=== PATIENT | female | born 1960 | race Caucasian/White ===

== ENCOUNTER 2016-05-14 14:47 | Emergency (ER) | payer OTHER ==
[2016-05-14 15:34] VITALS: TEMP 98.7; BMI 25.7
--- NOTE | 2016-05-14 17:43 | PDOC ---
History of Present Illness - General Chief Complaint: Syncope/Near Syncope Stated Complaint: SYNCOPE Time Seen by Provider: 05/14/16 15:46 History Source: Patient Exam Limitations: No Limitations - History of Present Illness Initial Comments: 05/14/16 17:13 56-year-old female presents to the emergency department with complaints of generalized fatigue, cough, decreased appetite, and weakness worsening over the past 2 days. Patient states went to her PCP who prescribed her an albuterol inhaler and azithromycin but did not start the medication since it was prescribed today. Patient states at the doctor's office, patient became weak and collapsed into her son's arms. As per son patient did have a period of LOC that lasted approximately 1 minute but was arousable with verbal stimuli therafter. She states history of ovarian cancer that was diagnosed in September and is followed by oncology on [facility]. Patient states last chemotherapy was 3 weeks ago and is due back in June. Patient states has not received blood transfusions or blood products since chemotherapy and denies history of anemia. Patient currently denies fever, chills, chest pain or shortness of breath, abdominal pain, dysuria or diarrhea. Timing/Duration: constant, getting worse Severity: moderate Associated Symptoms: reports: fever/chills, loss of appetite, malaise, syncope, weakness Past History - Past Medical History Allergies/Adverse Reactions: Allergies Allergy/AdvReac Type Severity Reaction Status Date / Time Penicillins Allergy Unknown Rash Verified 05/14/16 15:38 Home Medications: Ambulatory Orders Metformin HCl [Glucophage -] 500 mg PO DAILY 10/04/15 Atorvastatin Ca [Lipitor] 80 mg PO HS 05/14/16 Dexamethasone 4 mg PO ASDIR 05/14/16 Docusate Sodium 100 mg PO ASDIR 05/14/16 Lisinopril [Zestril] 2.5 mg PO DAILY 05/14/16 Meclizine HCl 25 mg PO ASDIR 05/14/16 Naproxen [Naprosyn -] 500 mg PO BID 05/14/16 Ondansetron [Zofran -] 8 mg PO ASDIR 05/14/16 Pravastatin Sodium [Pravachol (Nf)] 20 mg PO HS 05/14/16 Asthma: No Cancer: Yes (ovarian 09/2015 on chemo now) Diabetes: Yes (NIDDM) HTN: Yes - Immunization History Immunization Up to Date: Yes - Psycho/Social/Smoking Cessation Hx Anxiety: No Suicidal Ideation: No Smoking Status: No Smoking History: Never smoked Have you smoked in the past 12 months: No Number of Cigarettes Smoked Daily: 0 Information on smoking cessation initiated: No Hx Alcohol Use: No Drug/Substance Use Hx: No Substance Use Type: None Patient Lives Alone: No Lives with/in: spouse/SO Review of Systems - Review of Systems Able to Perform ROS?: Yes Constitutional: Yes: Weakness HEENTM: No: Symptoms Reported Respiratory: Yes: Cough, SOB with Exertion. No: Wheezing, Hemoptysis Cardiac (ROS): Yes: Syncope. No: Chest Pain, Edema ABD/GI: Yes: Poor Appetite, Poor Fluid Intake : No: Symptoms Reported Musculoskeletal: No: Symptoms Reported Integumentary: No: Symptoms Reported Neurological: Yes: Weakness Endocrine: No: Symptoms Reported Hematologic/Lymphatic: Yes: See HPI *Physical Exam - Vital Signs Last Vital Signs Temp Pulse Resp BP Pulse Ox 98.7 F 86 18 112/78 96 05/14/16 14:54 05/14/16 14:54 05/14/16 14:54 05/14/16 14:54 05/14/16 14:54 - Physical Exam General Appearance: Yes: Nourished, Appropriately Dressed. No: Apparent Distress HEENT: positive: EOMI, [place], TMs Normal, Pharynx Normal (moist), Pale Conjunctivae Neck: positive: Supple. negative: Lymphadenopathy (R), Lymphadenopathy (L) Respiratory/Chest: positive: Lungs Clear, Normal Breath Sounds. negative: Respiratory Distress, Accessory Muscle Use Cardiovascular: positive: Regular Rhythm, Regular Rate. negative: Murmur Gastrointestinal/Abdominal: positive: Soft. negative: Tenderness Extremity: positive: Normal Capillary Refill. negative: Pedal Edema Integumentary: positive: Warm, Pale, Moist Neurologic: positive: Motor Strength 5/5 (ambulatory) Heart Score/ECG Review - History History: Highly suspicious - ECG Intrepretation Rhythm: Regular Rhythm (Rate 85. Normal sinus rhythm. No acute findings) ED Treatment Course - LABORATORY CBC & Chemistry Diagram: 05/14/16 17:31 05/14/16 17:31 - RADIOLOGY Radiology Studies Ordered: Category Date Time Status CHEST X-RAY PORTABLE* [RAD] Stat Radiology 05/14/16 16:06 Completed Medical Decision Making - Medical Decision Making 05/14/16 17:10 Patient with history of apparent CVA in between treatments for chemotherapy presents with cough, malaise, shortness of breath on exertion, decreased by mouth intake, and syncope today while at the doctor's office. Patient states prescribed medication for treatment of bronchitis. Patient denies history of anemia and chest pain presently. Patient concerning for anemia, PE, pneumonia, and sepsis. Septic workup initiated including influenza swab and type and screen 05/14/16 18:32 Laboratory Tests 05/14/16 05/14/16 05/14/16 17:31 17:55 17:55 WBC 5.2 Hgb 12.0 Hct 35.6 Neutrophils % 56.3 D Monocytes % 10.7 H Eosinophils % 5.2 H INR 1.14 Ur Specific [place] 1.038 H Urine Urobilinogen Negative Ur Leukocyte Esterase Trace H Urine RBC 5 Urine WBC 4 influenza negative. chest x-ray negative. 05/14/16 18:59 Laboratory Tests 05/14/16 05/14/16 05/14/16 17:31 17:31 17:55 Sodium 140 Potassium 3.9 Chloride 105 Carbon Dioxide 26 Anion Gap 9 BUN 14 Creatinine 0.8 Random Glucose 101 Lactic Acid 1.436 Calcium 8.6 Total Bilirubin 0.6 AST 52 H D ALT 108 H D Creatine Kinase 57 Troponin I < 0.02 Albumin 3.5 Ur Specific [place] 1.038 H Ur Leukocyte Esterase Trace H Urine RBC 5 Ur Epithelial Cells Moderate Patient states feeling better after receiving the above. Case discussed with hospitalist who states patient does not request here for admission and may follow up with her PCP and start antibiotics and inhaler as prescribed. *DC/Admit/Observation/Transfer Diagnosis at time of Disposition: Cough Fatigue Qualifiers: Fatigue type: unspecified Qualified Code(s): R53.83 - Other fatigue Syncope Qualifiers: Syncope type: unspecified Qualified Code(s): R55 - Syncope and collapse - Discharge Dispostion Disposition: HOME Condition at time of disposition: Improved - Referrals Referrals: Eleazar Ken [Primary Care Provider] - - Patient Instructions Printed Discharge Instructions: DI for Syncope in Adults (Fainting) Additional Instructions: I recommend completing your antibiotics and using inhaler as needed for the above symptoms. Eat small frequent meals and drink plenty of fluids. Please follow-up with your PCP later this week or return to ED if her symptoms worsen.
[2016-05-14 17:46] LABS: BASOPHIL 0.7 % (0-2.0); EOSINOPHIL 5.2 % (0-4.5); MCH 30.2 pg (25.7-33.7); MCHC 33.6 g/dl (32.0-36.0); MEAN CELL VOLUME 89.7 fl (80-96); MEAN PLT VOLUME 8.2 fl (7.5-11.1); NEUTROPHILS 56.3 % (42.8-82.8); PLATELET COUNT 268 K/MM3 (134-434); RDW 14.6 % (11.6-15.6); WHITE BLOOD COUNT 5.2 K/mm3 (4.0-10.0)
[2016-05-14 18:06] LABS: URINE APPEARANCE CLEAR; URINE BLOOD NEGATIVE (NEGATIVE); URINE COLOR YELLOW; URINE GLUCOSE (UA) NEGATIVE (NEGATIVE); URINE KETONE NEGATIVE (NEGATIVE); URINE NITRITE NEGATIVE (NEGATIVE); URINE PROTEIN NEGATIVE (NEGATIVE); URINE UROBILINOGEN NEGATIVE E.U./dl (0.2-1.0)
[2016-05-14 18:16] LABS: URINE LEUK ESTERASE TRACE (NEGATIVE)
[2016-05-14 18:17] LABS: URINE HYALINE CAST 3 /lpf; URINE MUCUS RARE; URINE RBC 5 /hpf (0-3); URINE WBC 4 /hpf (3-5)
[2016-05-14 18:24] LABS: INR 1.14 (0.82-1.09); PROTHROMBIN TIME (PATIENT) 12.6 SEC (9.98-11.88)
[2016-05-14 18:31] LABS: ALBUMIN 3.5 g/dl (3.4-5.0); ANION GAP 9 (8-16); CALCIUM 8.6 mg/dL (8.5-10.1); CO2 26 mmol/L (21-32); CREATININE 0.8 mg/dL (0.55-1.02); GLUCOSE,RANDOM 101 mg/dL (74-106); SGOT/AST 52 U/L (15-37); SGPT/ALT 108 U/L (12-78)
[2016-05-14 18:36] LABS: ALK PHOS 82 U/L (45-117); BILIRUBIN,TOTAL 0.6 mg/dL (0.2-1.0); TOT PROT 6.8 g/dl (6.4-8.2); TROPONIN I < 0.02 ng/ml (0.00-0.05)
[2016-05-14 19:33] VITALS: BP 103/76; PULSE 97
--- NOTE | 2016-05-15 10:54 | PDOC ---
*Physical Exam - Vital Signs Last Vital Signs Temp Pulse Resp BP Pulse Ox 98.7 F 97 H 19 103/76 97 05/14/16 14:54 05/14/16 18:54 05/14/16 18:54 05/14/16 18:54 05/14/16 18:54 - Physical Exam Comments: 05/15/16 10:52 MIDLEVEL NOTE Pt seen by Midlevel Provider under my direct supervision. Pt interviewed and examined. Ancillary studies reviewed. I agree with plan as outlined by Midlevel Provider. Laboratory Results - last 24 hr 05/14/16 05/14/16 05/14/16 17:31 17:31 17:31 WBC 5.2 RBC 3.96 Hgb 12.0 Hct 35.6 MCV 89.7 MCHC 33.6 RDW 14.6 Plt Count 268 D MPV 8.2 D Neutrophils % 56.3 D Lymphocytes % 27.1 D Monocytes % 10.7 H Eosinophils % 5.2 H Basophils % 0.7 INR Sodium 140 Potassium 3.9 Chloride 105 Carbon Dioxide 26 Anion Gap 9 BUN 14 Creatinine 0.8 Creat Clearance w eGFR > 60 Random Glucose 101 Lactic Acid Calcium 8.6 Total Bilirubin 0.6 AST 52 H D ALT 108 H D Alkaline Phosphatase 82 D Creatine Kinase 57 Troponin I < 0.02 Total Protein 6.8 Albumin 3.5 Urine Color Urine Appearance Urine pH Ur Specific [place] Urine Protein Urine Glucose (UA) Urine Ketones Urine Blood Urine Nitrite Urine Bilirubin Urine Urobilinogen Ur Leukocyte Esterase Urine RBC Urine WBC Ur Epithelial Cells Hyaline Casts Urine Mucus Blood Type A POSITIVE Antibody Screen Negative 05/14/16 05/14/16 05/14/16 17:31 17:55 17:55 WBC RBC Hgb Hct MCV MCHC RDW Plt Count MPV Neutrophils % Lymphocytes % Monocytes % Eosinophils % Basophils % INR 1.14 Sodium Potassium Chloride Carbon Dioxide Anion Gap BUN Creatinine Creat Clearance w eGFR Random Glucose Lactic Acid 1.436 Calcium Total Bilirubin AST ALT Alkaline Phosphatase Creatine Kinase Troponin I Total Protein Albumin Urine Color Yellow Urine Appearance Clear Urine pH 6.0 Ur Specific [place] 1.038 H Urine Protein Negative Urine Glucose (UA) Negative Urine Ketones Negative Urine Blood Negative Urine Nitrite Negative Urine Bilirubin 4.0 Urine Urobilinogen Negative Ur Leukocyte Esterase Trace H Urine RBC 5 Urine WBC 4 Ur Epithelial Cells Moderate Hyaline Casts 3 Urine Mucus Rare Blood Type Antibody Screen Chest x-ray-there is a new right port with its tip in the SVC. There is no acute chest pathology, no infiltrate, no pneumothorax ED Treatment Course - LABORATORY CBC & Chemistry Diagram: 05/14/16 17:31 05/14/16 17:31 - ADDITIONAL ORDERS Additional order review: 05/14/16 17:38 Influenza Types A,B Antigen (JEFERSON) - Final Nasopharyngeal Swab - Final 05/14/16 17:31 RBC 3.96 MCV 89.7 MCHC 33.6 RDW 14.6 MPV 8.2 D Neutrophils % 56.3 D Lymphocytes % 27.1 D Monocytes % 10.7 H Eosinophils % 5.2 H Basophils % 0.7 *DC/Admit/Observation/Transfer Diagnosis at time of Disposition: Cough Fatigue Qualifiers: Fatigue type: unspecified Qualified Code(s): R53.83 - Other fatigue Syncope Qualifiers: Syncope type: unspecified Qualified Code(s): R55 - Syncope and collapse - Discharge Dispostion Disposition: HOME Condition at time of disposition: Improved - Referrals Referrals: Eleazar Ken [Primary Care Provider] - - Patient Instructions Printed Discharge Instructions: DI for Syncope in Adults (Fainting) Additional Instructions: I recommend completing your antibiotics and using inhaler as needed for the above symptoms. Eat small frequent meals and drink plenty of fluids. Please follow-up with your PCP later this week or return to ED if her symptoms worsen. - Post Discharge Activity
--- NOTE | 2016-05-15 15:31 | EKG ---
Test Reason : Blood Pressure : / mmHG Vent. Rate : 085 BPM Atrial Rate : 085 BPM P-R Int : 132 ms QRS Dur : 084 ms QT Int : 362 ms P-R-T Axes : 060 036 033 degrees QTc Int : 430 ms NORMAL SINUS RHYTHM NORMAL ECG WHEN COMPARED WITH ECG OF 04-OCT-2015 14:57, NO SIGNIFICANT CHANGE WAS FOUND Confirmed by ANDRE KOWALSKI MD ([id number]) on 05/15/2016 3:31:26 PM Referred By: Confirmed By:ANDRE KOWALSKI MD
== END 2016-05-14 19:15 | disposition home or self-care (01) ==
LOC: JER 14:47
DX: R05 Cough (principal); R53.83 Other fatigue; R55 Syncope and collapse; I10 Essential (primary) hypertension; E11.9 Type 2 diabetes mellitus without complications; Z85.43 Personal history of malignant neoplasm of ovary
CPT/HCPCS: 36415; 71010-TC; 80053; 81003; 81015; 82550; 83605; 84484; 85025; 85610; 86850; 86900; 86901; 87040; 87086; 87804; 93005; 93010; 99282-25

== ENCOUNTER 2016-09-13 14:31 | Inpatient (IN) | payer OTHER ==
[2016-09-13 14:47] VITALS: BMI 28.3
--- NOTE | 2016-09-13 15:47 | PDOC ---
History of Present Illness - General History Source: Patient Exam Limitations: No Limitations - History of Present Illness Initial Comments: 09/13/16 15:51 The patient is a 56-year-old woman, accompanied by her son, with a significant past medical history of ovarian cancer (status post chemotherapy; last chemotherapy session 03/2016), hypertension and non-insulin dependent diabetes mellitus who presents to the emergency department via walk-in for further evaluation of shortness of breath for the past 2 days. Patient states that her symptoms started approximately 2 days ago with a dry intermittent cough and a fever of 101.0 and chills at home. In the course of 2 days, patient's symptoms have progressively worsen as she started to feel short of breath and reports associated symptoms of pleuritic sharp chest pains with a rated 8/10 in severity that do not allow her to eat or drink and she experiences sever pain Son, at bedside, reports that he was recently sick, approximately 2 week ago with the common cold. No associated symptoms of lightheadedness, dizziness, palpitations, leg pain.swelling, neck pain, visual changes, headaches, ear pain , rhinorrhea, nasal congestion, sore throat, abdominal pain, nausea, vomiting, diarrhea. No urinary complaints. Patient also reports noting a pruritic rash that is localized to her right forearm. No new soaps, detergents, new foods. No recent travel. Allergies: Penicillin Past Surgical History: Port insertion for cancer Social History: Never smoked. No EtOH and recreational drug use Primary Care Physician: Dr. Luci Ken <Dionne Hicks - Last Filed: 09/13/16 16:21> - General History Source: Patient Exam Limitations: No Limitations <Griselda Goodwin - Last Filed: 09/15/16 01:07> - General Chief Complaint: Shortness of Breath Stated Complaint: SOB, CHEST PAIN Time Seen by Provider: 09/13/16 15:23 Past History <Dionne Hicks - Last Filed: 09/13/16 16:21> - Past Medical History Asthma: No Cancer: Yes (ovarian 09/2015 on chemo now) Diabetes: Yes (NIDDM) HTN: Yes - Immunization History Immunization Up to Date: Yes - Psycho/Social/Smoking Cessation Hx Anxiety: No Suicidal Ideation: No Smoking Status: No Smoking History: Never smoked Have you smoked in the past 12 months: No Number of Cigarettes Smoked Daily: 0 Information on smoking cessation initiated: No Hx Alcohol Use: No Drug/Substance Use Hx: No Substance Use Type: None <Griselda Goodwin - Last Filed: 09/15/16 01:07> - Past Medical History Allergies/Adverse Reactions: Allergies Allergy/AdvReac Type Severity Reaction Status Date / Time Penicillins Allergy Unknown Rash Verified 09/13/16 14:38 Home Medications: Ambulatory Orders Metformin HCl [Glucophage -] 500 mg PO DAILY 10/04/15 Lisinopril [Zestril] 5 mg PO DAILY 05/14/16 Pravastatin Sodium [Pravachol (Nf)] 20 mg PO HS 05/14/16 Aspirin [Children's Aspirin] 81 mg PO DAILY 09/14/16 Review of Systems - Review of Systems Able to Perform ROS?: Yes Comments:: 09/13/16 15:51 GENERAL/CONSTITUTIONAL: Yes: Generalized weakness. Loss of Appetite. No: fever, chills. HEAD, EYES, EARS, NOSE AND THROAT: No: change in vision, ear pain, discharge, sore throat, throat swelling. CARDIOVASCULAR: Yes: Pleuritic chest pain. No: lightheadedness, palpitations, syncope RESPIRATORY: Yes: Cough. Shortness of Breath. No: wheezing, hemoptysis, stridor. GASTROINTESTINAL: No: nausea, vomiting, abdominal cramping, diarrhea, rectal bleeding, constipation. GENITOURINARY: No: dysuria, hematuria, frequency, urgency, flank pain. MUSCULOSKELETAL: No: back pain, neck pain, joint pain, muscle swelling or pain SKIN AND BREASTS: Yes: Rash. No: lesions, pallor, easy bruising. NEUROLOGIC: No: headache, vertigo, paresthesias, weakness ENDOCRINE: No: unexplained weight gain or loss HEMATOLOGIC/LYMPHATIC: No: anemia, easy bleeding, swelling nodes <Dionne Hicks - Last Filed: 09/13/16 16:21> *Physical Exam - Vital Signs Last Vital Signs Temp Pulse Resp BP Pulse Ox 97.3 F L 80 18 120/74 100 09/13/16 14:39 09/13/16 14:39 09/13/16 14:39 09/13/16 14:39 09/13/16 14:39 - Physical Exam Comments: 09/13/16 15:51 GENERAL: Awake. Alert and Oriented. Appears weak. No acute distress. HEAD: Normal with no signs of trauma. EYES: PERRLA, EOMI, sclera anicteric, conjunctiva clear. ENT: Ears normal, nares patent, oropharynx clear without exudates. Moist mucous membranes. NECK: Normal range of motion, supple without lymphadenopathy, JVD, or masses. LUNGS: Coarse breath sounds throughout both lung serrano. No wheezes, and no crackles. HEART:Regular rate and rhythm, normal S1 and S2 without murmur, rub or gallop. ABDOMEN: Soft, nontender, normoactive bowel sounds. No guarding, no rebound. EXTREMITIES: Normal range of motion, no edema. No clubbing or cyanosis. No erythema, or tenderness. NEUROLOGICAL: Cranial nerves II through XII grossly intact. Normal speech. No focal neurological deficits. MUSCULOSKELETAL: Back non-tender to palpation, no CVA tenderness SKIN: Warm, Dry, normal turgor, no rashes or lesions noted. <Dionne Hicks - Last Filed: 09/13/16 16:21> - Vital Signs Last Vital Signs Temp Pulse Resp BP Pulse Ox 97.3 F L 80 18 120/74 100 09/13/16 14:39 09/13/16 14:39 09/13/16 14:39 09/13/16 14:39 09/13/16 14:39 <Griselda Goodwin - Last Filed: 09/15/16 01:07> ED Treatment Course - LABORATORY CBC & Chemistry Diagram: 09/13/16 15:38 09/13/16 15:38 <Dionne Hicks - Last Filed: 09/13/16 16:21> - LABORATORY CBC & Chemistry Diagram: 09/14/16 21:00 09/14/16 21:00 - RADIOLOGY Radiology Studies Ordered: Category Date Time Status CHEST X-RAY PORTABLE* [RAD] Stat Radiology 09/13/16 15:28 Ordered <Griselda Goodwin - Last Filed: 09/15/16 01:07> Medical Decision Making - Medical Decision Making 09/13/16 15:47 A portion of this note was documented by scribe services under my direction. I have reviewed the details of the note, within reason, and agree with the documentation with the following case summary and management plan written by me. Nursing documentation reviewed and incorporated into medical decision making 09/13/16 16:24 56 yo F h/o DM, HTN presenting to the ER with a complaint of chest pain Pt states that since Friday (2 days ago) she noted that when she had her coffee, it caused chest pain Since then she has been unable to tolerate eating or drinking Two days ago, she had a fever She has had cough (productive) No travel Son = sick contact Prior endoscopy, negative per patient (2 years ago, no h/o h. pylori, no ulcer) DD: Pneumonia, Bronchitis, Gastritis, PE, pleural effusion, pneumothorax Will do labs Will do EKg Will do CXR Will actually do CTA (if creatinine permits) as pt has had Ovarian cancer Pt signed out to Dr Warren Pending labs and imaging <Griselda Goodwin - Last Filed: 09/15/16 01:07> *DC/Admit/Observation/Transfer - Attestations Scribe Attestion: 09/13/16 15:51 Documentation prepared by Dionne Hicks, acting as biomedical instrument technician for Griselda Goodwin MD. <Dionne Hicks - Last Filed: 09/13/16 16:21> <Griselda Goodwin - Last Filed: 09/15/16 01:07> Diagnosis at time of Disposition: Costochondritis, Chest pain - Discharge Dispostion Disposition: HOME Condition at time of disposition: Stable - Referrals
[2016-09-13 16:30] LABS: INR 1.04 (0.82-1.09); PROTHROMBIN TIME (PATIENT) 11.5 SEC (9.98-11.88)
[2016-09-13 16:31] LABS: MCH 28.5 pg (25.7-33.7); MEAN PLT VOLUME 8.7 fl (7.5-11.1)
[2016-09-13 16:38] LABS: BASOPHIL 0.8 % (0-2.0); EOSINOPHIL 11.4 % (0-4.5); MCHC 33.1 g/dl (32.0-36.0); MEAN CELL VOLUME 86.4 fl (80-96); NEUTROPHILS 43.2 % (42.8-82.8); PLATELET COUNT 324 K/MM3 (134-434); RDW 14.7 % (11.6-15.6); WHITE BLOOD COUNT 5.8 K/mm3 (4.0-10.0)
[2016-09-13 16:40] LABS: ANION GAP 10 (8-16); BILIRUBIN,TOTAL 0.6 mg/dL (0.2-1.0); CALCIUM 9.5 mg/dL (8.5-10.1); CO2 26 mmol/L (21-32); CREATININE 0.7 mg/dL (0.55-1.02); GLUCOSE,RANDOM 90 mg/dL (74-106); MAGNESIUM 1.8 mg/dL (1.8-2.4); SGOT/AST 22 U/L (15-37); SGPT/ALT 28 U/L (12-78); TOT PROT 7.1 g/dl (6.4-8.2)
[2016-09-13 16:43] LABS: ALK PHOS 61 U/L (45-117); TROPONIN I < 0.02 ng/ml (0.00-0.05)
--- NOTE | 2016-09-13 18:51 | PDOC ---
*Physical Exam - Vital Signs Last Vital Signs Temp Pulse Resp BP Pulse Ox 97.3 F L 80 18 120/74 100 09/13/16 14:39 09/13/16 14:39 09/13/16 14:39 09/13/16 14:39 09/13/16 14:39 ED Treatment Course - LABORATORY CBC & Chemistry Diagram: 09/13/16 15:38 09/13/16 15:38 - ADDITIONAL ORDERS Additional order review: Laboratory Results 09/13/16 09/13/16 09/13/16 15:38 15:38 15:38 INR 1.04 Sodium 140 Potassium 4.0 Chloride 104 Carbon Dioxide 26 Anion Gap 10 BUN 16 Creatinine 0.7 Creat Clearance w eGFR > 60 Random Glucose 90 Calcium 9.5 Magnesium 1.8 Total Bilirubin 0.6 AST 22 D ALT 28 D Alkaline Phosphatase 61 D Creatine Kinase 129 Troponin I < 0.02 B-Natriuretic Peptide 30.82 Total Protein 7.1 Albumin 4.0 Total Amylase 41 Lipase 110 09/13/16 15:38 RBC 4.11 MCV 86.4 MCHC 33.1 RDW 14.7 MPV 8.7 Neutrophils % 43.2 D Lymphocytes % 35.9 D Monocytes % 8.7 Eosinophils % 11.4 H D Basophils % 0.8 Medical Decision Making - Medical Decision Making 09/13/16 18:42 Sign-out received from outgoing Emergency Physician Dr. Goodwin Pt interviewed and examined Ancillary studies reviewed Case discussed in detail with oncoming Emergency Physician including history, physical exam and ancillary studies. CAT scan demonstrates no acute pathology or pulmonary embolism. CBC, BMP 09/13/16 15:38 09/13/16 15:38 CMP Sodium 140 mmol/L (136-145) 09/13/16 15:38 Potassium 4.0 mmol/L (3.5-5.1) 09/13/16 15:38 Chloride 104 mmol/L (98-107) 09/13/16 15:38 Carbon Dioxide 26 mmol/L (21-32) 09/13/16 15:38 Anion Gap 10 (8-16) 09/13/16 15:38 BUN 16 mg/dL (7-18) 09/13/16 15:38 Creatinine 0.7 mg/dL (0.55-1.02) 09/13/16 15:38 Creat Clearance w eGFR > 60 (>60) 09/13/16 15:38 Random Glucose 90 mg/dL (74-106) 09/13/16 15:38 Calcium 9.5 mg/dL (8.5-10.1) 09/13/16 15:38 Magnesium 1.8 mg/dL (1.8-2.4) 09/13/16 15:38 Total Bilirubin 0.6 mg/dL (0.2-1.0) 09/13/16 15:38 AST 22 U/L (15-37) D 09/13/16 15:38 ALT 28 U/L (12-78) D 09/13/16 15:38 Alkaline Phosphatase 61 U/L (45-117) D 09/13/16 15:38 Creatine Kinase 129 IU/L (26-192) 09/13/16 15:38 Troponin I < 0.02 ng/ml (0.00-0.05) 09/13/16 15:38 B-Natriuretic Peptide 30.82 pg/ml (5-125) 09/13/16 15:38 Total Protein 7.1 g/dl (6.4-8.2) 09/13/16 15:38 Albumin 4.0 g/dl (3.4-5.0) 09/13/16 15:38 Total Amylase 41 U/L (25-115) 09/13/16 15:38 Lipase 110 U/L (73-393) 09/13/16 15:38 Labs reviewed. I suspect the patient likely has costochondritis and viral syndrome. Patient reports 3 days of coughing and body aches particularly with coughing. Blood work done shows no acute finding. There is no evidence of pneumonia. Patient is not on chemotherapy or venous presents at this time. Given these findings, we will give supportive medications. I instructed the patient that her symptoms are persistent for additional 4 days, given history diabetes, patient can start taking azithromycin I will prescribe. Patient verbalizes understand agrees with plan. 09/13/16 21:48 I had attempted to discharge Ms. Staton. However, pt is now complaining of worsening pain and crying despite naproxen and tylenol. Will give morphine. however, pt unable to tolerate PO secondary to pain. Patient is very uncomfortable and anxious about going home. Will admit for obs. 09/13/16 22:[address] Graff. She accepts to med/surg observation. Case discussed in detail with admitting physician including history, physical exam and ancillary studies. Admitting physician has assumed care for the patient, will follow all pending diagnostics and will complete the evaluation and treatment. *DC/Admit/Observation/Transfer Diagnosis at time of Disposition: Costochondritis Chest pain Qualifiers: Chest pain type: unspecified Qualified Code(s): R07.9 - Chest pain, unspecified - Discharge Dispostion Condition at time of disposition: Stable Admit: Yes - Prescriptions Prescriptions: Azithromycin 250 mg PO DAILY #6 tablet Loratadine [Claritin] 10 mg PO DAILY PRN #7 tablet PRN Reason: Allergies Naproxen [Naprosyn -] 500 mg PO BID PRN #20 tablet PRN Reason: Pain Albuterol Sulfate Inhaler - [Ventolin HFA Inhaler -] 1 - 2 inh PO Q4H PRN #1 inhaler PRN Reason: Cough - Referrals Referrals: Eleazar Ken [Primary Care Provider] - - Patient Instructions Printed Discharge Instructions: DI for Costochondritis, DI for Viral Syndrome Additional Instructions: Please take 2 puffs of albuterol every 4 hours for cough/wheezing. Take 10 mg claritin daily as needed for wheezes. By day 7, if your symptoms are still persistent, please start the azithromycin ( antibiotic) Take 500 mg naproxen every 12 hours as needed for pain/fever. It may take several days before your symptoms improve. - Post Discharge Activity
[2016-09-13] MEDS ORDERED: LORATADINE 10 MG TABLET PO ONE (18:52)
[2016-09-13] MEDS ORDERED: KETOROLAC TROMETHAMINE 30 MG/1 ML VIAL IVPUSH ONE (18:52)
[2016-09-13] MEDS ORDERED: LORATADINE 10 MG TABLET ONE (19:14)
[2016-09-13] MEDS ORDERED: KETOROLAC TROMETHAMINE 30 MG/1 ML VIAL ONE (19:14)
[2016-09-13] MEDS ORDERED: ACETAMINOPHEN 1000 MG/100 ML VIAL (NON FORMULARY) IVPB ONE (19:31)
[2016-09-13] MEDS ORDERED: ACETAMINOPHEN INJECTION 100 ML IVPB ONE (19:59)
[2016-09-13] MEDS ORDERED: morphine CARPU-JECT 4 MG/1 ML DISP.SYRIN IVPUSH ONE (21:48)
[2016-09-13] MEDS ORDERED: morphine CARPU-JECT 4 MG/1 ML DISP.SYRIN ONE (22:04)
[2016-09-13] MEDS ORDERED: ONDANSETRON 4 MG/2 ML VIAL IVPUSH PRN (22:20)
[2016-09-13] MEDS ORDERED: PANTOPRAZOLE SODIUM 100 ML IVPB ONE ×2 (22:20→22:45)
[2016-09-13] MEDS ORDERED: SODIUM CHLORIDE 1,000 ML IV STA (22:45)
[2016-09-13] MEDS ORDERED: ONDANSETRON 4 MG/2 ML VIAL ONE (22:45)
[2016-09-13] MEDS: SODIUM CHLORIDE 1,000 ML IV SCH (23:15)
--- NOTE | 2016-09-14 00:15 | HP ---
CHIEF COMPLAINT: "My chest and back hurt when I swallow." PCP: Eleazar Ken HISTORY OF PRESENT ILLNESS: This is a 56-year-old woman, accompanied by her son , with a significant past medical history of ovarian cancer (s/p chemotherapy; last 03/2016), HTN and NIDDM who presents to the emergency department right sided chest and upper back pain for the past 2 days. Patient states that her symptoms started approximately 2 days ago with a dry intermittent cough and chills at home. In the course of 2 days, patient's symptoms have progressively worsen as she started to feel short of breath and reports associated symptoms of pleuritic sharp chest pain 8/10 in severity that do not allow her to eat or drink and she experiences severe pain. Son, at bedside, reports that he was recently sick, approximately 2 week ago with the common cold. No associated symptoms of lightheadedness, dizziness, palpitations, leg pain.swelling, neck pain, visual changes, headaches, ear pain, rhinorrhea, nasal congestion, sore throat, abdominal pain, nausea, vomiting, diarrhea. No urinary complaints. ER course was notable for: (1) eosinophilia 11.4% (2) negative troponin (3) negative CTA Recent Travel: denies PAST MEDICAL HISTORY: NIDDM, HTN, occiptal aneurysm, ovarian CA with last chemo 03/2016 PAST SURGICAL HISTORY: CARMEL 2004, implanted port R chest Social History: Smoking: denies Alcohol: denies Drugs: denies Family History: unknown Allergies Penicillins Allergy (Unknown, Verified 09/13/16 14:38) Rash HOME MEDICATIONS: Home Medications 3 Medication Instructions Recorded Metformin HCl [Glucophage -] 500 mg PO DAILY 10/04/15 Lisinopril [Zestril] 5 mg PO DAILY 05/14/16 Pravastatin Sodium [Pravachol (Nf)] 20 mg PO HS 05/14/16 Aspirin [Children's Aspirin] 81 mg PO DAILY 09/14/16 REVIEW OF SYSTEMS CONSTITUTIONAL: Absent: fever, chills, diaphoresis, generalized weakness, malaise, loss of appetite, weight change HEENT: odynophagia Absent: rhinorrhea, nasal congestion, throat pain, throat swelling, difficulty swallowing, mouth swelling, ear pain, eye pain, visual changes CARDIOVASCULAR: right sided chest pain Absent: syncope, palpitations, irregular heart rate, lightheadedness, peripheral edema RESPIRATORY: dry cough, shortness of breath Absent: dyspnea with exertion, orthopnea, wheezing, stridor, hemoptysis GASTROINTESTINAL: Absent: abdominal pain, abdominal distension, nausea, vomiting, diarrhea, constipation, melena, hematochezia GENITOURINARY: Absent: dysuria, frequency, urgency, hesitancy, hematuria, flank pain, genital pain MUSCULOSKELETAL: Absent: myalgia, arthralgia, joint swelling, back pain, neck pain SKIN: Absent: rash, itching, pallor HEMATOLOGIC/IMMUNOLOGIC: Absent: easy bleeding, easy bruising, lymphadenopathy, frequent infections ENDOCRINE: Absent: unexplained weight gain, unexplained weight loss, heat intolerance, cold intolerance NEUROLOGIC: Absent: headache, focal weakness or paresthesias, dizziness, unsteady gait, seizure, mental status changes, bladder or bowel incontinence PSYCHIATRIC: Absent: anxiety, depression, suicidal or homicidal ideation, hallucinations. PHYSICAL EXAMINATION Vital Signs - 24 hr 3 09/13/16 14:39 Temperature 97.3 F L Pulse Rate 80 Respiratory 18 Rate Blood Pressure 120/74 O2 Sat by Pulse 100 Oximetry (%) GENERAL: Awake, alert, and fully oriented, in no acute distress. HEAD: Normal with no signs of trauma. EYES: Pupils equal, round and reactive to light, extraocular movements intact, sclera anicteric, conjunctiva clear. No lid lag. EARS, NOSE, THROAT: Ears normal, nares patent, oropharynx clear without exudates. Moist mucous membranes. NECK: Normal range of motion, supple without lymphadenopathy, JVD, or masses. LUNGS: Breath sounds equal, clear to auscultation bilaterally. No wheezes, and no crackles. No accessory muscle use. HEART: Regular rate and rhythm, normal S1 and S2 without murmur, rub or gallop. ABDOMEN: Soft, nontender, not distended, normoactive bowel sounds, no guarding, no rebound, no masses. No hepatomegaly or splenomegaly. MUSCULOSKELETAL: Normal range of motion at all joints. No bony deformities or tenderness. No CVA tenderness. Tenderness to right ACW. UPPER EXTREMITIES: 2+ pulses, warm, well-perfused. No cyanosis. No clubbing. No peripheral edema. Localized pink papular rash to dorsum of right hand extending into forearm. LOWER EXTREMITIES: 2+ pulses, warm, well-perfused. No calf tenderness. No peripheral edema. NEUROLOGICAL: Cranial nerves II-XII intact. Normal speech. Normal gait. PSYCHIATRIC: Cooperative. Good eye contact. Appropriate mood and affect. SKIN: Warm, dry, normal turgor, no rashes or lesions noted, normal capillary refill. Localized pruritic pink papular rash to dorsum of right hand extending into forearm. Laboratory Results - last 24 hr 3 09/13/16 09/13/16 09/13/16 15:38 15:38 15:38 WBC 5.8 RBC 4.11 Hgb 11.7 Hct 35.5 MCV 86.4 MCHC 33.1 RDW 14.7 Plt Count 324 D MPV 8.7 Neutrophils % 43.2 D Lymphocytes % 35.9 D Monocytes % 8.7 Eosinophils % 11.4 H D Basophils % 0.8 INR 1.04 Sodium 140 Potassium 4.0 Chloride 104 Carbon Dioxide 26 Anion Gap 10 BUN 16 Creatinine 0.7 Creat Clearance w eGFR > 60 Random Glucose 90 Calcium 9.5 Magnesium 1.8 Total Bilirubin 0.6 AST 22 D ALT 28 D Alkaline Phosphatase 61 D Creatine Kinase 129 Troponin I < 0.02 B-Natriuretic Peptide Total Protein 7.1 Albumin 4.0 Total Amylase Lipase 3 09/13/16 15:38 WBC RBC Hgb Hct MCV MCHC RDW Plt Count MPV Neutrophils % Lymphocytes % Monocytes % Eosinophils % Basophils % INR Sodium Potassium Chloride Carbon Dioxide Anion Gap BUN Creatinine Creat Clearance w eGFR Random Glucose Calcium Magnesium Total Bilirubin AST ALT Alkaline Phosphatase Creatine Kinase Troponin I B-Natriuretic Peptide 30.82 Total Protein Albumin Total Amylase 41 Lipase 110 ASSESSMENT/PLAN: A: This is a 56 yo woman with history ovarian CA, HTN, CARMEL and NIDDM who presents with right sided chest pain, dry cough and SOB. While in the ED, she was medicated with morphine and became hypotensive (75/46) and diaphoretic. 1 liter NS w/o given with return to baseline. P: Chest pain -serial troponin -repeat EKG -ASA eosinophilia -likely from ovarian neoplasm dermatitis -benadryl PRN HTN -lisinopril HLD -pravachol DM -FS BID -metformin F/E/N -1 liter NS bolus PPX -OOB -Maalox Dispo: This patient needs observation for her acute medical problem. Code Status: FULL CODE Visit type - Emergency Visit Emergency Visit: Yes ED Registration Date: 05/27/17 Care time: The patient presented to the Emergency Department on the above date and was hospitalized for further evaluation of their emergent condition. - New Patient This patient is new to me today: Yes Date on this admission: 09/14/16 - Critical Care Critical Care patient: No
[2016-09-14] MEDS ORDERED: MAG HYDROX/AL HYDROX/SIMETH 30 ML UNIT-DOSE CUP PO ONE (04:01)
[2016-09-14] MEDS ORDERED: diphenhydrAMINE HCL 12.5 MG/5 ML UNIT-DOSE CUPS PO ONE (04:01)
[2016-09-14] MEDS ORDERED: MAG HYDROX/AL HYDROX/SIMETH 30 ML UNIT-DOSE CUP ONE (05:12)
[2016-09-14] MEDS ORDERED: diphenhydrAMINE HCL 12.5 MG/5 ML BULK BOTTLE ONE (05:12)
[2016-09-14] MEDS ORDERED: metFORMIN HCL 500 MG TABLET (FP) PO SCH (07:00)
[2016-09-14] MEDS: SODIUM CHLORIDE 1,000 ML IV SCH ×3 (09:07→22:34)
[2016-09-14] MEDS ORDERED: diphenhydrAMINE HCL 25 MG CAPSULE (FP) PO ONE (09:16)
[2016-09-14 09:34] LABS: EOSINOPHIL 7.6 % (0-4.5); MCH 29.1 pg (25.7-33.7); MCHC 33.4 g/dl (32.0-36.0); MEAN CELL VOLUME 87.1 fl (80-96); MEAN PLT VOLUME 8.9 fl (7.5-11.1); NEUTROPHILS 43.9 % (42.8-82.8); PLATELET COUNT 309 K/MM3 (134-434); RDW 14.6 % (11.6-15.6); WHITE BLOOD COUNT 5.3 K/mm3 (4.0-10.0)
[2016-09-14] MEDS ORDERED: LISINOPRIL 5 MG TABLET (FP) PO SCH (10:00)
[2016-09-14] MEDS ORDERED: ASPIRIN 81 MG CHEWABLE TABLETS PO SCH (10:00)
[2016-09-14] MEDS ORDERED: MAG HYDROX/AL HYDROX/SIMETH 30 ML UNIT-DOSE CUP PO PRN ×2 (10:00→23:43)
[2016-09-14 10:40] LABS: ANION GAP 10 (8-16); CO2 24 mmol/L (21-32); COCKROFT - GAULT 83.4445; CREATININE 0.9 mg/dL (0.55-1.02); GLUCOSE,RANDOM 85 mg/dL (74-106); TROPONIN I < 0.02 ng/ml (0.00-0.05)
[2016-09-14] MEDS ORDERED: IBUPROFEN 600 MG TABLET (FP) PO PRN (12:43)
[2016-09-14] MEDS ORDERED: IBUPROFEN 600 MG TABLET (FP) PO ONE (13:30)
--- NOTE | 2016-09-14 16:21 | PN ---
Physical Exam: SUBJECTIVE: Patient seen and examined OBJECTIVE: Vital Signs Period Temp Pulse Resp BP Sys/Leach Pulse Ox Last 24 Hr 97.8 F-97.8 F 73-88 15-19 91-107/53-64 95-97 GENERAL: The patient is awake, alert, and fully oriented, in no acute distress. HEAD: Normal with no signs of trauma. EYES: PERRL, extraocular movements intact, sclera anicteric, conjunctiva clear. No ptosis. ENT: Ears normal, nares patent, oropharynx clear without exudates, moist mucous membranes. NECK: Trachea midline, full range of motion, supple. LUNGS: Breath sounds equal, clear to auscultation bilaterally, no wheezes, no crackles, no accessory muscle use. HEART: Regular rate and rhythm, S1, S2 without murmur, rub or gallop. ABDOMEN: Soft, nontender, nondistended, normoactive bowel sounds, no guarding, no rebound, no hepatosplenomegaly, no masses. EXTREMITIES: 2+ pulses, warm, well-perfused, no edema. NEUROLOGICAL: Cranial nerves II through XII grossly intact. Normal speech, gait not observed. PSYCH: Normal mood, normal affect. SKIN: Warm, dry, normal turgor, no rashes or lesions noted Laboratory Results - last 24 hr 09/14/16 09/14/16 09/14/16 06:37 08:50 08:50 WBC 5.3 RBC 3.86 Hgb 11.2 Hct 33.7 MCV 87.1 MCHC 33.4 RDW 14.6 Plt Count 309 MPV 8.9 Neutrophils % 43.9 Lymphocytes % 39.3 Monocytes % 8.2 Eosinophils % 7.6 H Basophils % 1.0 Sodium 140 Potassium 4.0 Chloride 106 Carbon Dioxide 24 Anion Gap 10 BUN 19 H Creatinine 0.9 D POC Glucometer 95 Random Glucose 85 Calcium 9.0 Troponin I < 0.02 Active Medications Generic Name Dose Route Start Last Admin Trade Name Freq PRN Reason Stop Dose Admin Al Hydroxide/Mg Hydroxide 30 ml 09/14/16 10:00 Mylanta Oral Suspension - PO Q6H PRN DYSPEPSIA Aspirin 81 mg 09/14/16 10:00 09/14/16 09:06 Asa - PO 81 mg DAILY AYANNA Administration Atorvastatin Calcium 10 mg 09/14/16 22:00 Lipitor - PO HS AYANNA Sodium Chloride 1,000 mls @ 125 mls/hr 09/13/16 22:45 09/14/16 09:07 Normal Saline - IV 125 mls/hr ASDIR AYANNA Administration Ibuprofen 600 mg 09/14/16 12:43 Motrin - PO Q8H PRN PAIN Lisinopril 5 mg 09/14/16 10:00 09/14/16 13:53 Prinivil PO Not Given DAILY AYANNA Metformin HCl 500 mg 09/14/16 07:00 09/14/16 07:05 Glucophage - PO 500 mg AM AYANNA Administration Ondansetron HCl 4 mg 09/13/16 22:20 Zofran Injection IVPUSH Q6H PRN NAUSEA AND/OR VOMITING ASSESSMENT/PLAN:
[2016-09-14] MEDS ORDERED: HYDROmorphone HCL CARPU-JECT 1 MG/1 ML DISP.SYRIN IVPB ONE (18:06)
--- NOTE | 2016-09-14 18:09 | RAPID ---
Physical Examination Vital Signs: Vital Signs Temperature 97.8 F 09/14/16 12:00 Pulse Rate 84 09/14/16 12:00 Respiratory Rate 16 09/14/16 12:00 Blood Pressure 100/55 09/14/16 12:00 O2 Sat by Pulse Oximetry (%) 97 09/14/16 08:00 Findings/Remarks: Rapid response called. Responded to find patient lying supine in bed. Awake but initially nonverbal. After a minute or two complained of headache. Appeared anxious. Was not responsive to other questions posed in [place] and in [place]. Patient last seen well by BOUCHRA Gutiérrez about 15 minutes before. Patient had been seen and evaluated by this provider about 4 hours previous to this encounter. She was fully alert, oriented, and conversational with no neurological deficits at that time. Sagrario Aj called. Dilaudid 0.5mg x 1 given for headache. Patient transported for emergency CT head. Discussed case with neuro, Dr. Timothy Coronado, who is en route. Constitutional: Yes: Anxious HENT: Yes: Atraumatic, Normocephalic Cardiovascular: Yes: Regular Rate and Rhythm, S1, S2 Respiratory: Yes: Regular, CTA Bilaterally Musculoskeletal: Yes: WNL Extremities: Yes: WNL Edema: No Peripheral Pulses WNL: Yes Integumentary: Yes: WNL Neurological: Yes: Lethargy ...Motor Strength: WNL Labs: CBC, BMP 09/14/16 08:50 09/14/16 08:50 Suspected CVA - Suspected CVA Exam Time (Sagrario Aj Time): 18:05 CT Stroke ordered: Yes Stat "Sagrario Aj" Consult to Neurology called: Yes Last Known Well (Date): 09/14/16 Symptom Discovery (Date): 09/14/16 Symptom Discovery (Time): 18:00
[2016-09-14] MEDS ORDERED: METOCLOPRAMIDE HCL INJECTION 10 MG/2 ML VIAL IVPB ONE (18:48)
--- NOTE | 2016-09-14 21:09 | CON.NEURO ---
Consult Consult Specialty:: Neurology Referred by:: Dr. Laird Reason for Consultation:: "Code Villegas" - History of Present Illness Chief Complaint: Severe headache History of Present Illness: 56 year old woman with history of ovarian Ca, last chemotherapy 04/05, HTN, DM, who comes in with 2 days of complaints of chest pain and cough. This afternoon she complained of severe headache, and became lethargic, though it seems that the lethargy followed administration of hydromorphone. Prior to administration of hydromorphone, however, the patient had a brief period of unresponsiveness, but then spontaneously became responsive again. No convulsive activity noted. The patient currently describes severe headache, typical of her migraine, with associated sense of room spinning, also typical of her migraine, with photophobia, phonophobia. Her headaches have been present since age 21, occur several times per year, are often precipitated by stress and changes in weather. She sometimes has sensory changes with right sided tingling and numbness. The patient complains now of being very tired. 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) Cardio/Vascular: Yes: HTN Heme/Onc: Yes: Cancer (ovarian cancer treated at [facility], chemo stopped after stroke and aneurysm discovered in Mar) Endocrine: Yes: Diabetes Mellitus - Alcohol/Substance Use Hx Alcohol Use: No - Smoking History Smoking history: Never smoked Have you smoked in the past 12 months: No Aproximately how many cigarettes per day: 0 Home Medications - Allergies Allergies/Adverse Reactions: Allergies Allergy/AdvReac Type Severity Reaction Status Date / Time Penicillins Allergy Unknown Rash Verified 09/13/16 14:38 - Home Medications Home Medications: Ambulatory Orders Metformin HCl [Glucophage -] 500 mg PO DAILY 10/04/15 Lisinopril [Zestril] 5 mg PO DAILY 05/14/16 Pravastatin Sodium [Pravachol (Nf)] 20 mg PO HS 05/14/16 Aspirin [Children's Aspirin] 81 mg PO DAILY 09/14/16 Physical Exam-Neuro Vital Signs: Vital Signs Temperature 98 F 09/14/16 18:00 Pulse Rate 100 H 09/14/16 18:05 Respiratory Rate 18 09/14/16 18:05 Blood Pressure 130/70 09/14/16 18:05 O2 Sat by Pulse Oximetry (%) 100 09/14/16 18:00 Constitutional: Yes: Mild Distress (complains of headache) Labs: CBC, BMP 09/14/16 08:50 09/14/16 08:50 INR, PTT INR 1.04 (0.82-1.09) 09/13/16 15:38 - Neuro Exam Level Of Consciousness: Yes: Alert, Oriented to Person, Oriented to Place, Oriented to Time (she is tired but easily alertable) Eyes: Yes: BRIDGETTE Speech: WNL Cranial Nerves II-XII Intact: Yes DTR's: 1+ Left Achilles, 1+ Right Achilles, 2+ Left Bicep, 2+ Right Bicep, 2+ Left Tricep, 2+ Right Tricep, 2+ Left Brachioradialis, 2+ Right Brachioradialis Babinski: Absent Response to light touch: Abnormal (inconsistent but reduced sensation on left side of body) Coordination: Normal: Finger to Nose (noraml), Heel to [place] Motor Strength: 5/5: Left Arm, Right Arm, Left Leg, Right Leg Gait: Deferred NIH Stroke Scale - Last Known Well Date/Time & Onset Symptom Onset Date: 09/14/16 Symptom Onset Time: 18:00 - Initial Evaluation Level of consciousness: Alert Ask patient the month & their age: Answers Both Correctly Ask Patient to open & close eyes; make fist and let go.: Obeys Both Correctly Best gaze (horizontal eye movement): Normal Visual Field Testing: No Visual Loss Facial Palsy(Show teeth or raise eyebrows & close eyes: Normal Symmetrical Movements. Motor Function - Left Arm: No Drift;extends limb 90 (or siting 45) degress & hold full 10 seconds Motor Function - Right Arm: No Drift;extends limb 90 (or siting 45) degress & hold full 10 seconds Motor Function - Left Leg: No Drift; leg holds 30 degree position for full 5 seconds. Motor Function - Right Leg: No Drift; leg holds 30 degree position for full 5 seconds. Limb Ataxia: Absent (also used for the pt who does not understand or paralyzed) Sensory (arms, legs, trunk, face): Mild-moderate sensory loss-loss of superficial pain but pt aware touch Best Language: No Aphasia; normal Dysarthria/Articulation: Normal Extinction and Inattention: No abnormality - Total Score NIH Stroke Scale Score: 1 Imaging - Results Cat Scan: Report Reviewed, Image Reviewed (Hypodensity in cerebellum) MRI: Image Reviewed (Report pending) Problem List - Problems (1) Migraine with aura, not intractable Assessment/Plan: Episodic, I am unsure as to what the relationship of the headache is to the rest of her problems. The headache itself is typical of her usual headaches, but the period of unresponsiveness is unusual and worrisome. I am not certain yet whether the lesion on CT yet is acute or not. I don't think that this is likely a subarachnoid hemorrhage. Code(s): G43.109 - MIGRAINE WITH AURA, NOT INTRACTABLE, W/O STATUS MIGRAINOSUS (2) Unresponsive episode Assessment/Plan: Lead to henrry villegas. I am not clear as to whether she had an acute stroke or not. Her exam is currently giving an NIHSS of 1 and that combined with the aneurysm makes me unwilling to give TPA. I also suspect that her sensory disturbance, the only reason for her score of 1, is due to her usual migraine aura. I would work her up for syncope, and I would get an EEG. Code(s): R41.89 - OTH SYMPTOMS AND SIGNS W COGNITIVE FUNCTIONS AND AWARENESS (3) Unruptured cerebral aneurysm Assessment/Plan: No acute intervention. Would continue to monitor this as outpatient for now. Code(s): I67.1 - CEREBRAL ANEURYSM, NONRUPTURED
[2016-09-14 21:37] LABS: EOSINOPHIL 6.4 % (0-4.5); MCH 28.6 pg (25.7-33.7); MCHC 32.9 g/dl (32.0-36.0); MEAN CELL VOLUME 86.9 fl (80-96); MEAN PLT VOLUME 8.5 fl (7.5-11.1); PLATELET COUNT 259 K/MM3 (134-434); RDW 14.1 % (11.6-15.6)
[2016-09-14] MEDS ORDERED: ATORVASTATIN CA 10 MG TABLET (FP) PO SCH (22:00)
[2016-09-14 22:17] LABS: ALBUMIN 3.2 g/dl (3.4-5.0); ALK PHOS 49 U/L (45-117); ANION GAP 7 (8-16); BILIRUBIN,TOTAL 0.4 mg/dL (0.2-1.0); CO2 26 mmol/L (21-32); CREATININE 0.8 mg/dL (0.55-1.02); GLUCOSE,RANDOM 98 mg/dL (74-106); MAGNESIUM 1.7 mg/dL (1.8-2.4); PHOSPHOROUS 3.9 mg/dL (2.5-4.9); SGOT/AST 17 U/L (15-37); SGPT/ALT 22 U/L (12-78); TOT PROT 5.7 g/dl (6.4-8.2)
--- NOTE | 2016-09-14 22:30 | CONSULT ---
Consult Consult Specialty:: PULM / CCM Referred by:: Lu Lopez Reason for Consultation:: CVA - History of Present Illness Chief Complaint: CVA History of Present Illness: Pt seen & examined in the ICU. Mrs. Staton is a 56 y/o woman w/ HTN, HL, DM, migraine HAs, & [place] CARMEL [place] [facility] [place] admitted to the ED this AM c/o CP & cough. ED w/u unremark, however, upon attempt to d/c --> home pt began crying & c/o CP again so pt was given MSO4 & admitted. C/c/b post MSO4 hypotension which responded well to fluids. On the floor this afternoon pt received Dilaudid then c/o severe GLASER and became lethargic. A/p report, the pt had a brief episode of unresponsiveness prior to adm of hydromorphone, but then spontaneously became responsive again. No reported Szs. A Stroke code was called. NCHCT negative, MRI Brain shows no bleed no thrombo. Upon careful pt interview the pt describes her severe GLASER as typical of her migraines. 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) Cardio/Vascular: Yes: HTN Heme/Onc: Yes: Cancer Endocrine: Yes: Diabetes Mellitus - Past Surgical History Past Surgical History: Yes: Hysterectomy - Alcohol/Substance Use Hx Alcohol Use: No - Smoking History Smoking history: Never smoked Have you smoked in the past 12 months: No Aproximately how many cigarettes per day: 0 - Social History Usual Living Arrangement: With Child ADL: Independent History of Recent Travel: No Home Medications - Allergies Allergies/Adverse Reactions: Allergies Allergy/AdvReac Type Severity Reaction Status Date / Time Penicillins Allergy Unknown Rash Verified 09/13/16 14:38 - Home Medications Home Medications: Ambulatory Orders Metformin HCl [Glucophage -] 500 mg PO DAILY 10/04/15 Lisinopril [Zestril] 5 mg PO DAILY 05/14/16 Pravastatin Sodium [Pravachol (Nf)] 20 mg PO HS 05/14/16 Aspirin [Children's Aspirin] 81 mg PO DAILY 09/14/16 Family Disease History - Family Disease History Family History: Unremarkable Review of Systems - Review of Systems Constitutional: reports: Lethargy, Loss of Appetite, Malaise, Weakness Eyes: reports: Photophobia HENT: reports: Difficult Swallowing, Throat Pain Neck: reports: No Symptoms Cardiovascular: reports: Chest Pain Respiratory: reports: Cough Gastrointestinal: reports: No Symptoms Genitourinary: reports: No Symptoms Breasts: reports: No Symptoms Reported Musculoskeletal: reports: Back Pain, Muscle Pain, Muscle Cramps, Muscle Weakness Neurological: reports: Change in LOC, Headache Endocrine: reports: No Symptoms Hematology/Lymphatic: reports: No Symptoms Psychiatric: reports: Anxiety Pain Intensity: 5 Physical Exam Vital Signs: Vital Signs Temperature 98 F 09/14/16 18:00 Pulse Rate 82 09/14/16 20:00 Respiratory Rate 18 09/14/16 20:00 Blood Pressure 132/70 09/14/16 20:00 O2 Sat by Pulse Oximetry (%) 100 09/14/16 21:00 Labs: CBC, BMP 09/14/16 21:00 09/14/16 21:00 Troponin, BNP 09/14/16 09/14/16 08:50 21:00 Troponin I < 0.02 < 0.02 Imaging - Results Cat Scan: Image Reviewed (NCHCT 09/14: Hypodensity in cerebellum.) MRI: Report Reviewed (MRA/MRI Brain 09/14: 4 X 2.3mm patent saccular aneurysm is noted along the paraclinoid segement of the R internal carotid artery. Note is also made of a 3 X 2 mm patent saccular aneurysm along the medial aspect of the R cavernous carotid artery adjacent to the anterior degenerative. Dr. Bernard Duran.) Problem List - Problems (1) Migraine with aura, not intractable Code(s): G43.109 - MIGRAINE WITH AURA, NOT INTRACTABLE, W/O STATUS MIGRAINOSUS (2) Cough Code(s): R05 - COUGH (3) Hypertension Code(s): I10 - ESSENTIAL (PRIMARY) HYPERTENSION (4) Diabetes Code(s): E11.9 - TYPE 2 DIABETES MELLITUS WITHOUT COMPLICATIONS (5) Syncope Code(s): R55 - SYNCOPE AND COLLAPSE Qualifiers: Syncope type: unspecified Qualified Code(s): R55 - Syncope and collapse Assessment/Plan ASSESS: This is a 56 y/o woman w/ HTN, HL, DM, migraine HAs, & ovarian Ca [place] CARMEL [place] [facility] [place] who presents now w/ a chostocondritis c/b migraines & a hypersensitivity to pain meds. PULM: Stable -FiO2 for an SpO2> 92% -Nebs prn -IS -HOB > 30 NEURO: Migraine HAs w/ 2 small patent aneurysms seen in the R carotid on MRI, no acute CVA. -Cont Home dose anti-HTN meds -Appreciate NEURO -Motrin for mild - mod -Dilaudid for Severe -Frequent Neuro Checks -Can Transfer to NEURO SDU CV: HTN, HL -lisinopril -Lipitor -ASA ENDO: DM -FS BID -metformin GI: Bed rest on Opiate Pain Meds -BR -Mylanta F/E/N: Recent poor PO intake 2/2 discomfort on swallow, now resolved -S & S -Reg Diet HEME/ONC: Ovarian Ca s/p CARMEL & [place] [facility] [place], now w/ eosinophilia (m/l 2/2 the ovarian neoplasm). -Trend CBC w/ Diff -HEME Consult -Consider Transfer back to [facility] PPX -SQH -PT/OT -OOB DISPO: Transfer to NEURO SDU w/ Tele (BED# [id number]) --> Consider Transfer back to [facility] Code Status: FULL CODE Thank you for this Interesting Consult. 38" Critical care time spent evaluating this patient, reviewing chart, and formulating a plan. Benjamin Parsons, [facility] ICU [id number]
[2016-09-14] MEDS ORDERED: SODIUM CHLORIDE 1,000 ML IV SCH (23:43)
[2016-09-15] MEDS ORDERED: diphenhydrAMINE HCL 25 MG CAPSULE (FP) PO ONE ×2 (01:15→13:15)
--- NOTE | 2016-09-15 06:15 | HOSP ---
Subjective - Review of Symptoms General: No: Chills HEENT: No: Head Aches, Visual Changes, Dysphasia Pulmonary: No: Dyspnea, Cough Cardiovascular: Yes: Chest Pain Gastrointestinal: Yes: Nausea, Other (odynophagia) Musculoskeletal: Yes: No Symptoms Neurological: No: Weakness, Numbness, Incoordination, Change in speech, Confusion Physical Examination Vital Signs: Vital Signs Temperature 98.2 F 09/14/16 22:00 Pulse Rate 86 09/15/16 00:00 Respiratory Rate 18 09/15/16 00:00 Blood Pressure 118/76 09/15/16 00:00 O2 Sat by Pulse Oximetry (%) 100 09/14/16 21:00 Constitutional: Yes: Well Nourished Eyes: Yes: WNL HENT: Yes: WNL Neck: Yes: WNL Cardiovascular: Yes: WNL Respiratory: Yes: WNL Gastrointestinal: Yes: WNL Renal/: Yes: WNL Neurological: Yes: Alert, Oriented, Cran Nerves II-XII Intact. No: Aphasia, Ataxia, Confusion, Facial Droop, Loss of Sensation, Numbness, Seizure Labs: CBC, BMP 09/14/16 21:00 09/14/16 21:00 Hospitalist Encounter Assessment: A: This is a 56 y/o woman w/ HTN, HL, DM, migraine HAs, & ovarian Ca s/p CARMEL & Chemo @ [facility] (last chemotherapy 04/05) admitted to the ED this AM c/o CP & cough. ED w/u unremark, however, upon attempt to d/c --> home pt began crying & c/o CP again so pt was given MSO4 & admitted. C/c/b post MSO4 hypotension which responded well to fluids. On the floor this afternoon pt received Dilaudid then c/o severe GLASER and became lethargic. A/p report, the pt had a brief episode of unresponsiveness prior to adm of hydromorphone, but then spontaneously became responsive again. No reported Szs. A Stroke code was called. NCHCT negative, MRI Brain shows no bleed no thrombo. Upon careful pt interview the pt describes her severe GLASER as typical of her migraines. Cat Scan: Image Reviewed (NCHCT 09/14: Hypodensity in cerebellum.) MRI/MRA: Report Reviewed (MRA/MRI Brain 09/14: 4 X 2.3mm patent saccular aneurysm is noted along the paraclinoid segement of the R internal carotid artery. Note is also made of a 3 X 2 mm patent saccular aneurysm along the medial aspect of the R cavernous carotid artery adjacent to the anterior degenerative. Dr. Bernard Duran.) Case discussed with neuro Dr. Coronado who believes this is likely absence seizure activity. After further discussion with the patient, she revealed that she has an episode similar this in 04/05 for which she was worked up at [facility] and found to have absence seizures. P: seizures -appreciate Neuro -EEG
[2016-09-15] MEDS ORDERED: metFORMIN HCL 500 MG TABLET (FP) PO SCH (07:00)
[2016-09-15] MEDS: LISINOPRIL 5 MG TABLET (FP) PO SCH (09:13)
[2016-09-15] MEDS: ASPIRIN 81 MG CHEWABLE TABLETS PO SCH (09:13)
[2016-09-15] MEDS ORDERED: PANTOPRAZOLE 40 MG TABLET (FP) PO SCH (13:30)
--- NOTE | 2016-09-15 15:56 | PN ---
Progress Note (short form) - Note Progress Note: Resting in NAD. No additional seizure activity noted. Intake & Output 09/12/16 09/13/16 09/14/16 09/15/16 23:59 23:59 23:59 23:59 Intake Total 895 Output Total 500 Balance 395 Weight 165 lb 165 lb Last Vital Signs Temp Pulse Resp BP Pulse Ox 99.4 F 93 H 18 106/67 96 09/15/16 14:00 09/15/16 14:00 09/15/16 14:00 09/15/16 14:00 09/15/16 10:00 Active Medications Al Hydroxide/Mg Hydroxide (Mylanta Oral Suspension -) 30 ml PO Q6H PRN PRN Reason: DYSPEPSIA Aspirin (Asa -) 81 mg PO DAILY [facility] Last Admin: 09/15/16 09:13 Dose: 81 mg Atorvastatin Calcium (Lipitor -) 10 mg PO HS [facility] Sodium Chloride (Normal Saline -) 1,000 mls @ 125 mls/hr IV ASDIR [facility] Ibuprofen (Motrin -) 600 mg PO Q8H PRN PRN Reason: PAIN Lisinopril (Prinivil) 5 mg PO DAILY [facility] Last Admin: 09/15/16 09:13 Dose: 5 mg Metformin HCl (Glucophage -) 500 mg PO AM [facility] Last Admin: 09/15/16 06:33 Dose: Not Given Pantoprazole Sodium (Protonix -) 40 mg PO DAILY [facility] Last Admin: 09/15/16 13:52 Dose: 40 mg GENERAL: NAD HEAD: Normal with no signs of trauma. EYES: sclera anicteric, conjunctiva clear. ENT: Ears normal, nares patent, oropharynx clear without exudates. Moist mucous membranes. NECK: Normal range of motion, supple without lymphadenopathy, JVD, or masses. LUNGS: Few scattered rhonchi. No wheezes, and no crackles. HEART:Regular rate and rhythm, normal S1 and S2 without murmur, rub or gallop. ABDOMEN: Soft, nontender, normoactive bowel sounds. No guarding, no rebound. EXTREMITIES: Normal range of motion, no edema. No clubbing or cyanosis. No erythema, or tenderness. NEUROLOGICAL: No focal neurological deficits. MUSCULOSKELETAL: Back non-tender to palpation, no CVA tenderness SKIN: Warm, Dry, normal turgor, no rashes or lesions noted. Problem List - Problems (1) Migraine with aura, not intractable Code(s): G43.109 - MIGRAINE WITH AURA, NOT INTRACTABLE, W/O STATUS MIGRAINOSUS (2) Cough Code(s): R05 - COUGH (3) Hypertension Code(s): I10 - ESSENTIAL (PRIMARY) HYPERTENSION (4) Diabetes Code(s): E11.9 - TYPE 2 DIABETES MELLITUS WITHOUT COMPLICATIONS (5) Syncope Code(s): R55 - SYNCOPE AND COLLAPSE Qualifiers: Syncope type: unspecified Qualified Code(s): R55 - Syncope and collapse Assessment/Plan DM Migraine HAs Ovarian CA s/p CARMEL & Chemo @ [facility] [place] (last chemotherapy 04/05) Chostocondritis AEDs per Neuro Fall precautions O2 as needed BD TX PRN Lipitor ASA VTE prophylaxis Dr Mosley
[2016-09-15] MEDS: SODIUM CHLORIDE 1,000 ML IV SCH (16:33)
--- NOTE | 2016-09-15 18:07 | PN ---
Progress Note, Physician History of Present Illness: 56 year old woman with history of ovarian Ca, last chemotherapy 04/05, HTN, DM, who comes in with 2 days of complaints of chest pain and cough. This afternoon she complained of severe headache, and became lethargic, though it seems that the lethargy followed administration of hydromorphone. Prior to administration of hydromorphone, however, the patient had a brief period of unresponsiveness, but then spontaneously became responsive again. No convulsive activity noted. The patient no longer describes severe headache, typical of her migraine, with associated sense of room spinning, also typical of her migraine, with photophobia, phonophobia. Her headaches have been present since age 21, occur several times per year, are often precipitated by stress and changes in weather. She sometimes has sensory changes with right sided tingling and numbness. She now tells us of a history of partial complex seizures since childhood. She has not been on medication since age 19 or 20, and continues to have seizures 2- 3 times per year. She doesn't drive. She sometimes passes out and sometimes convulses (but not always). - Current Medication List Current Medications: Active Medications Al Hydroxide/Mg Hydroxide (Mylanta Oral Suspension -) 30 ml PO Q6H PRN PRN Reason: DYSPEPSIA Aspirin (Asa -) 81 mg PO DAILY [facility] Last Admin: 09/15/16 09:13 Dose: 81 mg Atorvastatin Calcium (Lipitor -) 10 mg PO HS [facility] Sodium Chloride (Normal Saline -) 1,000 mls @ 125 mls/hr IV ASDIR [facility] Last Admin: 09/15/16 16:33 Dose: 125 mls/hr Ibuprofen (Motrin -) 600 mg PO Q8H PRN PRN Reason: PAIN Lisinopril (Prinivil) 5 mg PO DAILY [facility] Last Admin: 09/15/16 09:13 Dose: 5 mg Metformin HCl (Glucophage -) 500 mg PO AM [facility] Last Admin: 09/15/16 06:33 Dose: Not Given Pantoprazole Sodium (Protonix -) 40 mg PO DAILY [facility] Last Admin: 09/15/16 13:52 Dose: 40 mg - Objective Vital Signs: Vital Signs Temperature 100.0 F H 09/15/16 17:27 Pulse Rate 98 H 09/15/16 17:27 Respiratory Rate 18 09/15/16 17:27 Blood Pressure 111/67 09/15/16 17:27 O2 Sat by Pulse Oximetry (%) 96 09/15/16 10:00 Neurological: Yes: Alert, Oriented, Cran Nerves II-XII Intact ...Motor Strength: WNL Labs: CBC, BMP 09/14/16 21:00 09/14/16 21:00 INR, PTT INR 1.04 (0.82-1.09) 09/13/16 15:38 Problem List - Problems (1) Migraine with aura, not intractable Code(s): G43.109 - MIGRAINE WITH AURA, NOT INTRACTABLE, W/O STATUS MIGRAINOSUS Qualifiers: Status migrainosus presence: without status migrainosus Qualified Code(s): G43.109 - Migraine with aura, not intractable, without status migrainosus (2) Unruptured cerebral aneurysm Code(s): I67.1 - CEREBRAL ANEURYSM, NONRUPTURED (3) 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 Recommend Depakote, which can also help reduce her migraine frequency , 500 mg TID and Check level. Code(s): G40.009 - LOCAL-REL IDIO EPI W SEIZ OF LOC ONST,NOT NTRCT,W/O STAT EPI Assessment/Plan Migraine, about 2 episodes per month. Usually I wouldn't prophylax for this, but she should be treated for her epilepsy and we can choose and agent that is appropriate for both. I would give her Depakote 500 mg TID.
--- NOTE | 2016-09-15 18:32 | PN ---
Physical Exam: SUBJECTIVE: Patient seen and examined at bedside. Complaining of pain with swallowing which started two days ago. Has also been coughing. Denies nausea, vomiting. Denies regurgitating food or feeling that food gets stuck. Feels hungry but does not want to eat secondary to pain. Has a history of headaches but denies headache at present. OBJECTIVE: Vital Signs Period Temp Pulse Resp BP Sys/Leach Pulse Ox Last 24 Hr 98.1 F-100.0 F 80-98 16-18 100-132/55-76 96-100 GENERAL: The patient is awake, alert, and fully oriented, in no acute distress. HEAD: Normal with no signs of trauma. EYES: PERRL, extraocular movements intact, sclera anicteric, conjunctiva clear. No ptosis. LUNGS: Breath sounds equal, clear to auscultation bilaterally, no wheezes, no crackles, no accessory muscle use. HEART: Regular rate and rhythm, S1, S2 without murmur, rub or gallop. Chest pain and upper right back pain is reproducible on exam with exquisite tenderness to both areas ABDOMEN: Soft, nontender, nondistended, normoactive bowel sounds, no guarding, no rebound, no hepatosplenomegaly, no masses. EXTREMITIES: 2+ pulses, warm, well-perfused, no edema. NEUROLOGICAL: Cranial nerves II through XII grossly intact. Normal speech, gait not observed. Moving all extremities freely. PSYCH: Normal mood, normal affect. SKIN: Warm, dry, normal turgor, no rashes or lesions noted Laboratory Results - last 24 hr 09/14/16 09/14/16 09/14/16 21:00 21:00 21:00 WBC 4.0 RBC 3.58 L Hgb 10.2 L Hct 31.1 L MCV 86.9 MCHC 32.9 RDW 14.1 Plt Count 259 MPV 8.5 Neutrophils % 44.0 Lymphocytes % 39.1 Monocytes % 9.5 Eosinophils % 6.4 H Basophils % 1.0 Sodium 141 Potassium 4.1 Chloride 108 H Carbon Dioxide 26 Anion Gap 7 L BUN 16 Creatinine 0.8 Creat Clearance w eGFR > 60 POC Glucometer Random Glucose 98 Calcium 8.0 L Phosphorus 3.9 Magnesium 1.7 L Total Bilirubin 0.4 D AST 17 D ALT 22 D Alkaline Phosphatase 49 Troponin I < 0.02 Total Protein 5.7 L Albumin 3.2 L ASSESSMENT/PLAN: 56 year-old woman with a PMH of HTN, NIDDM, ovarian cancer (last chemo 03/2016) , 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 Presented with chest pain, right upper back pain, cough and subjective fever x 2 days. The pain is associated with swallowing and patient has been unable to eat. Chest pain --r/o ACS: serial troponins negative; echo pending --CTA negative for PE --afebrile, no leukocytosis, no acute pathology in the chest on CT; no antibiotics for now --on physical exam the pain has a musculoskeltal component; will do trial of NSAIDS; if no improvement, will consider GI consult Hypertension --BP well-controlled --continue lisinopril, statin, ASA NIDDM --Novolog sliding scale coverage Ovarian cancer --[place] [facility] [place][phone][place] every 3 months ; last saw her June 2016 and was told everything was fine, next appointment in September --on no meds Occipital aneurysm --occurred during course of chemotherapy, apparently on no meds Dispo: will keep on observation. Full Code. Visit type - Emergency Visit Emergency Visit: Yes ED Registration Date: 09/13/16 Care time: The patient presented to the Emergency Department on the above date and was hospitalized for further evaluation of their emergent condition. - New Patient This patient is new to me today: Yes Date on this admission: 09/15/16 - Critical Care Critical Care patient: No
--- NOTE | 2016-09-15 20:00 | PN ---
Physical Exam: SUBJECTIVE: Patient seen and examined. Back to cognitive baseline. Advised overnight hospitalist she forgot to mention she has a history of absence seizures. Advised neurologist today she has a history of complex partial seizures since childhood, on no medication since age 19, and has 2-3 seizures per year. The pain with swallowing persists and states that the food gets stuck although she does not regurgitate. OBJECTIVE: Vital Signs Period Temp Pulse Resp BP Sys/Leach Pulse Ox Last 24 Hr 98.1 F-100.0 F 80-98 16-18 100-132/55-76 96-100 GENERAL: The patient is awake, alert, and fully oriented, in no acute distress. Back to baseline. HEAD: Normal with no signs of trauma. EYES: PERRL, extraocular movements intact, sclera anicteric, conjunctiva clear. No ptosis. LUNGS: Breath sounds equal, clear to auscultation bilaterally, no wheezes, no crackles, no accessory muscle use. HEART: Regular rate and rhythm, S1, S2 without murmur, rub or gallop. Chest pain and upper right back pain is reproducible on exam with exquisite tenderness to both areas ABDOMEN: Soft, nontender, nondistended, normoactive bowel sounds, no guarding, no rebound, no hepatosplenomegaly, no masses. EXTREMITIES: 2+ pulses, warm, well-perfused, no edema. NEUROLOGICAL: Cranial nerves II through XII grossly intact. Normal speech, gait not observed. Moving all extremities freely. PSYCH: Normal mood, normal affect. SKIN: Warm, dry, normal turgor, no rashes or lesions noted Laboratory Results - last 24 hr 09/14/16 09/14/16 09/14/16 21:00 21:00 21:00 WBC 4.0 RBC 3.58 L Hgb 10.2 L Hct 31.1 L MCV 86.9 MCHC 32.9 RDW 14.1 Plt Count 259 MPV 8.5 Neutrophils % 44.0 Lymphocytes % 39.1 Monocytes % 9.5 Eosinophils % 6.4 H Basophils % 1.0 Sodium 141 Potassium 4.1 Chloride 108 H Carbon Dioxide 26 Anion Gap 7 L BUN 16 Creatinine 0.8 Creat Clearance w eGFR > 60 POC Glucometer Random Glucose 98 Calcium 8.0 L Phosphorus 3.9 Magnesium 1.7 L Total Bilirubin 0.4 D AST 17 D ALT 22 D Alkaline Phosphatase 49 Troponin I < 0.02 Total Protein 5.7 L Albumin 3.2 L 09/15/16 09/15/16 05:59 17:32 WBC RBC Hgb Hct MCV MCHC RDW Plt Count MPV Neutrophils % Lymphocytes % Monocytes % Eosinophils % Basophils % Sodium Potassium Chloride Carbon Dioxide Anion Gap BUN Creatinine Creat Clearance w eGFR POC Glucometer 88 85 Random Glucose Calcium Phosphorus Magnesium Total Bilirubin AST ALT Alkaline Phosphatase Troponin I Total Protein Albumin Active Medications Generic Name Dose Route Start Last Admin Trade Name Freq PRN Reason Stop Dose Admin Al Hydroxide/Mg Hydroxide 30 ml 09/14/16 23:43 Mylanta Oral Suspension - PO Q6H PRN DYSPEPSIA Aspirin 81 mg 09/15/16 10:00 09/15/16 09:13 Asa - PO 81 mg DAILY AYANNA Administration Atorvastatin Calcium 10 mg 09/15/16 22:00 Lipitor - PO HS AYANNA Sodium Chloride 1,000 mls @ 125 mls/hr 09/15/16 16:00 09/15/16 16:33 Normal Saline - IV 125 mls/hr ASDIR AYANNA Administration Pantoprazole Sodium 40 mg/ 100 mls @ 200 mls/hr 09/16/16 10:00 Sodium Chloride IVPB DAILY AYANNA Ibuprofen 600 mg 09/14/16 23:43 Motrin - PO Q8H PRN PAIN Lisinopril 5 mg 09/15/16 10:00 09/15/16 09:13 Prinivil PO 5 mg DAILY AYANNA Administration Metformin HCl 500 mg 09/15/16 07:00 09/15/16 06:33 Glucophage - PO Not Given AM AYANNA ASSESSMENT/PLAN: 56 year-old woman with a PMH of HTN, NIDDM, ovarian cancer (last chemo 03/2016) , 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 Presented with chest pain, right upper back pain, cough and subjective fever x 2 days. The pain is associated with swallowing and patient has been unable to eat. Last night had episode consistent with absence seizure, today back to baseline. Chest pain --r/o ACS: serial troponins negative; CXR unremarkable; echo pending --CTA negative for PE --afebrile, no leukocytosis, no acute pathology in the chest on CT; has well- healed right upper chest mediport that shows no sign of infection, no redness, tenderness; no antibiotics for now Dysphagia in setting of h/o ovarian cancer --acute onset 72 hours ago and increasingly intolerant of PO intake; says she feels hungry but afraid to eat because of pain and thinks food is getting stuck --CTA negative for acute chest pathology --esophogram pending --GI following Partial complex seizures --has not been on meds --seen and evaluated by neuro, start depakote PO 500mg TID --EEG ordered Unruptured occipital aneurysms --09/14 MRI/MRA: (1) 4mm patent saccular aneurysm right internal carotid; (2) 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 Ordonez at [facility] [place] ([phone]) every 3 months ; last saw her June 2016 and was told everything was fine, next appointment in September --on no meds F/E/N Fluids: NS @ 125mL/hr Electrolytes: replete as indicated Nutrition: NPO pending esophogram Dispo: continues to require inpatient care. Full Code. Visit type - Emergency Visit Emergency Visit: Yes ED Registration Date: 09/13/16 Care time: The patient presented to the Emergency Department on the above date and was hospitalized for further evaluation of their emergent condition. - New Patient This patient is new to me today: No - Critical Care Critical Care patient: No
[2016-09-15] MEDS ORDERED: PT OWN MED DRAWER 7, Y5N ONE (21:39)
[2016-09-15] MEDS: IBUPROFEN 600 MG TABLET (FP) PO PRN (21:48)
[2016-09-15] MEDS: ATORVASTATIN CA 10 MG TABLET (FP) PO SCH (21:49)
[2016-09-15] MEDS: DIVALPROEX SODIUM 500 MG TABLET E.C. PO SCH (21:49)
[2016-09-15] MEDS: INSULIN SLIDING SCALE (NOVOLOG) 1 VIAL SQ SCH (21:50)
--- NOTE | 2016-09-15 22:24 | EKG ---
Test Reason : Blood Pressure : / mmHG Vent. Rate : 077 BPM Atrial Rate : 077 BPM P-R Int : 130 ms QRS Dur : 076 ms QT Int : 384 ms P-R-T Axes : -05 040 034 degrees QTc Int : 434 ms NORMAL SINUS RHYTHM NORMAL ECG WHEN COMPARED WITH ECG OF 14-MAY-2016 15:10, NO SIGNIFICANT CHANGE WAS FOUND Confirmed by SAVANAH SALGADO MD ([id number]) on 09/15/2016 10:24:28 PM Referred By: Confirmed By:SAVANAH SALGADO MD
--- NOTE | 2016-09-15 23:01 | EKG ---
Test Reason : Blood Pressure : / mmHG Vent. Rate : 074 BPM Atrial Rate : 074 BPM P-R Int : 152 ms QRS Dur : 086 ms QT Int : 388 ms P-R-T Axes : 029 055 050 degrees QTc Int : 430 ms NORMAL SINUS RHYTHM NORMAL ECG WHEN COMPARED WITH ECG OF 13-SEP-2016 14:40, NO SIGNIFICANT CHANGE WAS FOUND Confirmed by SAVANAH SALGADO MD ([id number]) on 09/15/2016 11:00:46 PM Referred By: Confirmed By:SAVANAH SALGADO MD
[2016-09-16] MEDS ORDERED: diphenhydrAMINE HCL 25 MG CAPSULE (FP) PO ONE (02:03)
[2016-09-16] MEDS: DIVALPROEX SODIUM 500 MG TABLET E.C. PO SCH ×3 (06:15→22:18)
[2016-09-16] MEDS: INSULIN SLIDING SCALE (NOVOLOG) 1 VIAL SQ SCH ×4 (06:19→22:19)
[2016-09-16] MEDS: HYDROCORTISONE 0.5% TOPICAL CREAM 30 GM TUBE TP PRN ×2 (06:45→22:25)
[2016-09-16 07:19] LABS: MCH 29.3 pg (25.7-33.7); MCHC 33.8 g/dl (32.0-36.0); MEAN CELL VOLUME 86.4 fl (80-96); MEAN PLT VOLUME 8.6 fl (7.5-11.1); PLATELET COUNT 276 K/MM3 (134-434); RDW 14.1 % (11.6-15.6); WHITE BLOOD COUNT 3.6 K/mm3 (4.0-10.0)
[2016-09-16] MEDS ORDERED: PT OWN MED DRAWER 7, Y5N ONE ×3 (07:21→21:59)
[2016-09-16 07:32] LABS: ALBUMIN 3.2 g/dl (3.4-5.0); BILIRUBIN,DIRECT 0.1 mg/dL (0.0-0.2); BILIRUBIN,TOTAL 0.5 mg/dL (0.2-1.0); COCKROFT - GAULT 93.874; CREATININE 0.8 mg/dL (0.55-1.02); MAGNESIUM 1.9 mg/dL (1.8-2.4); TOT PROT 6.1 g/dl (6.4-8.2)
--- NOTE | 2016-09-16 09:46 | EKG ---
Test Reason : Blood Pressure : / mmHG Vent. Rate : 085 BPM Atrial Rate : 085 BPM P-R Int : 140 ms QRS Dur : 086 ms QT Int : 366 ms P-R-T Axes : 063 050 041 degrees QTc Int : 435 ms POOR DATA QUALITY, INTERPRETATION MAY BE ADVERSELY AFFECTED NORMAL SINUS RHYTHM NORMAL ECG WHEN COMPARED WITH ECG OF 14-SEP-2016 00:38, NO SIGNIFICANT CHANGE WAS FOUND Confirmed by NAOMI EM, SAVANAH ([id number]) on 09/16/2016 9:45:39 AM Referred By: Confirmed By:SAVANAH SALGADO MD
[2016-09-16] MEDS: PANTOPRAZOLE SODIUM 100 ML IVPB SCH (10:06)
[2016-09-16] MEDS: ASPIRIN 81 MG CHEWABLE TABLETS PO SCH (10:06)
[2016-09-16] MEDS: LISINOPRIL 5 MG TABLET (FP) PO SCH (10:06)
[2016-09-16] MEDS: POLYETHYLENE GLYCOL 3350 119 GM BTL PO SCH ×2 (10:38→22:19)
[2016-09-16 14:27] LABS: PLATELET ESTIMATE ADEQUATE (NORMAL)
--- NOTE | 2016-09-16 14:43 | CON.GI ---
Consult Consult Specialty:: GASTROENTEROLOGY - History of Present Illness Chief Complaint: TROUBLE SWALLOWING History of Present Illness: 56 YEAR OLD FEMALE WITH A HISTORY OF OVARIAN CANCER ADMITTED WITH COUGH, SOB, CHEST PAIN AND PAINFUL SWALLOWING REFERRED TO THE UPPER RIGHT CHEST AND UPPER POSTERIOR RIGHT THORAX. SHE ALOS TOLD ME THAT SHE WAS COUGHING AT HOME WHEN SHE WAS EATING! sHE ALOS TOLD ME SHE HAS HAD "MINI STROKES" DURING CHEMO. THIS STARTED LAST WEEK AND HAS PROGRESSED. THE PAIN BECAME SO UNBEARABLE SHE CAME TO THE ER AND HAD TO BE GIVEN MORPHINE TO EASE THE PAIN. SHE HAS NOT HAD THIS BEFORE EVEN DURING CHEMO WHICH WAS COMPLETED IN 03/2016. SHE DENIES REFLUX. SHE WAS ON ANTIBIOTICS FOR DENTAL ISSUES TOW WEEKS PRIOR. SHE DESCRIBES THE PAIN A STABBING , KNIFE LIKE. SHE ALSO HAS CHEST PAIN AND PAIN IN THE RIGHT SHOULDER AND INTRASCAPULAR. - History Source History Provided By: Patient Limitations to Obtaining History: No Limitations - Past Medical History MEDICARE INSURANCE SPECIALIST: Yes: Migraine, Seizure, TIA, Other (aneurysm/stroke, ) Cardio/Vascular: Yes: HTN Gastrointestinal: Yes: Other (PAINFUL AND DIFFICULTY SWALLOWING) Heme/Onc: Yes: Other (HISTORY OF OVARIAN CANCER) Endocrine: Yes: Diabetes Mellitus - Past Surgical History Past Surgical History: Yes: Hysterectomy - Alcohol/Substance Use Hx Alcohol Use: No - Smoking History Smoking history: Never smoked Have you smoked in the past 12 months: No Aproximately how many cigarettes per day: 0 - Social History Usual Living Arrangement: With Child ADL: Independent History of Recent Travel: No Home Medications - Allergies Allergies/Adverse Reactions: Allergies Allergy/AdvReac Type Severity Reaction Status Date / Time Penicillins Allergy Unknown Rash Verified 09/13/16 14:38 - Home Medications Home Medications: Ambulatory Orders Metformin HCl [Glucophage -] 500 mg PO DAILY 10/04/15 Lisinopril [Zestril] 5 mg PO DAILY 05/14/16 Pravastatin Sodium [Pravachol (Nf)] 20 mg PO HS 05/14/16 Aspirin [Children's Aspirin] 81 mg PO DAILY 09/14/16 Review of Systems - Review of Systems Constitutional: reports: Loss of Appetite Eyes: reports: No Symptoms HENT: reports: No Symptoms Neck: reports: Pain on Movement, Stiffness Cardiovascular: reports: Chest Pain Respiratory: reports: Cough, SOB Gastrointestinal: reports: Dysphagia, Other (ODYNOPHAGIA) Genitourinary: reports: No Symptoms Musculoskeletal: reports: Back Pain Integumentary: reports: No Symptoms Neurological: reports: Change in LOC Hematology/Lymphatic: reports: No Symptoms Psychiatric: reports: No Symptoms Physical Exam-GI Vital Signs: Vital Signs Temperature 98.3 F 09/16/16 13:35 Pulse Rate 91 H 09/16/16 13:35 Respiratory Rate 20 09/16/16 13:35 Blood Pressure 109/71 09/16/16 13:35 O2 Sat by Pulse Oximetry (%) 98 09/16/16 09:00 Constitutional: Yes: Well Nourished, No Distress, Obese Eyes: Yes: Conjunctiva Clear HENT: Yes: Other (NO THRUSH) Neck: Yes: Tenderness, Other (RIGHT SIDED TAPEZIUS TENDERNESS(SIMILAR PAIN WHEN SWOLLOWING)) Cardiovascular: Yes: Regular Rate and Rhythm Respiratory: Yes: Other (CHEST WALL TENDERNESS WITH PALPATION) Labs: CBC, BMP 09/16/16 06:00 09/16/16 06:00 INR, PTT INR 1.04 (0.82-1.09) 09/13/16 15:38 Problem List - Problems (1) Odynophagia Assessment/Plan: NO THRUSH SEEN IN OROPHARYNX I HAD HER DRINK SOME WATER IN FRONT OF ME. SHE WAS SWALLOWING SHE HAD IMMEDIATE PAIN IN THE BACK OF HER RIGHT SHOULDER. THIS IS ODD AND I AM NOT SURE IF THE IS RELATED TO THE ESOPHAGUS. I WOULD SUGGEST A MODIFIED BARIUM SWALLOW AND FOLLOW UP ESOPHAGRAM. SHE MAY NEED A ENT CONSULT AND I WOULD HAVE NEUROLOGY TO FOLLOW UP WITH PATIENT IF MBS IS POSITIVE FOR PENETRATION. 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, not intractable, without status epilepticus Code(s): G40.009 - LOCAL-REL IDIO EPI W SEIZ OF LOC ONST,NOT NTRCT,W/O STAT EPI (6) Migraine with aura, not intractable Code(s): G43.109 - MIGRAINE WITH AURA, NOT INTRACTABLE, W/O STATUS MIGRAINOSUS Qualifiers: Status migrainosus presence: without status migrainosus Qualified Code(s): G43.109 - Migraine with aura, not intractable, without status migrainosus (7) Unruptured cerebral aneurysm Code(s): I67.1 - CEREBRAL ANEURYSM, NONRUPTURED (8) History of ovarian cancer Code(s): Z85.43 - PERSONAL HISTORY OF MALIGNANT NEOPLASM OF OVARY (9) Muscle spasms of neck Code(s): M62.838 - OTHER MUSCLE SPASM
[2016-09-16] MEDS: SODIUM CHLORIDE 1,000 ML IV SCH ×2 (17:30→22:19)
--- NOTE | 2016-09-16 17:49 | PN ---
Physical Exam: SUBJECTIVE: Patient seen and examined. Same pain with swallowing sips of water. No further seizure activity. OBJECTIVE: Vital Signs Period Temp Pulse Resp BP Sys/Leach Pulse Ox Last 24 Hr 98.0 F-100.0 F 88-98 16-20 109-127/67-76 98-98 GENERAL: The patient is awake, alert, and fully oriented, in no acute distress. Back to baseline. HEAD: Normal with no signs of trauma. EYES: PERRL, extraocular movements intact, sclera anicteric, conjunctiva clear. No ptosis. LUNGS: Breath sounds equal, clear to auscultation bilaterally, no wheezes, no crackles, no accessory muscle use. HEART: Regular rate and rhythm, S1, S2 without murmur, rub or gallop. Chest pain and upper right back pain is reproducible on exam with exquisite tenderness to both areas ABDOMEN: Soft, nontender, nondistended, normoactive bowel sounds, no guarding, no rebound, no hepatosplenomegaly, no masses. EXTREMITIES: 2+ pulses, warm, well-perfused, no edema. NEUROLOGICAL: Cranial nerves II through XII grossly intact. Normal speech, gait not observed. Moving all extremities freely. PSYCH: Normal mood, normal affect. SKIN: Warm, dry, normal turgor, no rashes or lesions noted Laboratory Results - last 24 hr 09/15/16 09/15/16 09/16/16 17:32 21:46 06:00 WBC 3.6 L RBC 3.67 Hgb 10.7 Hct 31.7 L MCV 86.4 MCHC 33.8 RDW 14.1 Plt Count 276 MPV 8.6 Neutrophils % 21.0 L D Lymphocytes % 65.0 H D Monocytes % 9.0 Eosinophils % 3.0 Basophils % 2.0 Differential Comment Manual diff done Platelet Estimate Adequate Sodium Potassium Chloride Carbon Dioxide Anion Gap BUN Creatinine POC Glucometer 85 109 Random Glucose Calcium Magnesium Total Bilirubin Direct Bilirubin AST ALT Alkaline Phosphatase Total Protein Albumin Lipase 09/16/16 09/16/16 09/16/16 06:00 06:11 11:55 WBC RBC Hgb Hct MCV MCHC RDW Plt Count MPV Neutrophils % Lymphocytes % Monocytes % Eosinophils % Basophils % Differential Comment Platelet Estimate Sodium 142 Potassium 4.0 Chloride 107 Carbon Dioxide 28 Anion Gap 7 L BUN 11 D Creatinine 0.8 POC Glucometer 100 88 Random Glucose 90 Calcium 9.0 Magnesium 1.9 Total Bilirubin 0.5 D Direct Bilirubin 0.1 AST 16 ALT 23 Alkaline Phosphatase 51 Total Protein 6.1 L Albumin 3.2 L Lipase 97 Active Medications Generic Name Dose Route Start Last Admin Trade Name Freq PRN Reason Stop Dose Admin Al Hydroxide/Mg Hydroxide 30 ml 09/14/16 23:43 Mylanta Oral Suspension - PO Q6H PRN DYSPEPSIA Aspirin 81 mg 09/15/16 10:00 09/16/16 10:06 Asa - PO 81 mg DAILY AYANNA Administration Atorvastatin Calcium 10 mg 09/15/16 22:00 09/15/16 21:49 Lipitor - PO 10 mg HS AYANNA Administration Divalproex Sodium 500 mg 09/15/16 22:00 09/16/16 14:37 Depakote - PO 500 mg TID AYANNA Administration Docusate Sodium 300 mg 09/16/16 22:00 Colace - PO HS AYANNA Hydrocortisone 1 applic 09/16/16 02:00 09/16/16 06:45 Hytone 0.5% Cream - TP 1 applic Q6H PRN Administration itching Sodium Chloride 1,000 mls @ 125 mls/hr 09/15/16 16:00 09/15/16 16:33 Normal Saline - IV 125 mls/hr ASDIR AYANNA Administration Pantoprazole Sodium 100 mls @ 200 mls/hr 09/16/16 10:00 09/16/16 10:06 Protonix 40mg Ivpb (Pre-Docked) IVPB 200 mls/hr DAILY AYANNA Administration Ibuprofen 600 mg 09/14/16 23:43 09/15/16 21:48 Motrin - PO 600 mg Q8H PRN Administration PAIN Insulin Aspart 1 vial 09/15/16 22:00 09/16/16 11:57 Novolog Vial Sliding Scale - SQ Not Given ACHS [facility] Protocol Lisinopril 5 mg 09/15/16 10:00 09/16/16 10:06 Prinivil PO 5 mg DAILY AYANNA Administration Polyethylene Glycol 17 gm 09/16/16 10:00 09/16/16 10:38 Miralax (For Daily Use) - PO 17 grams BID AYANNA Administration ASSESSMENT/PLAN: 56 year-old woman with a PMH of HTN, NIDDM, ovarian cancer (last chemo 03/2016) , 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 Presented with chest pain, right upper back pain, cough and subjective fever x 2 days. The pain is associated with swallowing and patient has been unable to eat. Last night had episode consistent with absence seizure, today back to baseline. Chest pain --r/o ACS: serial troponins negative; CXR unremarkable; echo pending --CTA negative for PE --afebrile, no leukocytosis, no acute pathology in the chest on CT; has well- healed right upper chest mediport that shows no sign of infection, no redness, tenderness; no antibiotics for now Dysphagia in setting of h/o ovarian cancer --acute onset 72 hours ago and increasingly intolerant of PO intake; says she feels hungry but afraid to eat because of pain and thinks food is getting stuck --the pattern of the pain, from mid-sternum to right scapula, is along the T4 dermatome --CTA negative for acute chest pathology --esophogram, MBS pending --get MRI cervical and thoracic spine Partial complex seizures --has not been on meds --seen and evaluated by neuro, start depakote PO 500mg TID --EEG ordered Unruptured occipital aneurysms --09/14 MRI/MRA: (1) 4mm patent saccular aneurysm right internal carotid; (2) 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 Ordonez at [facility] [place] ([phone]) every 3 months ; last saw her June 2016 and was told everything was fine, next appointment in September --on no meds F/E/N Fluids: NS @ 125mL/hr Electrolytes: replete as indicated Nutrition: NPO pending esophogram Dispo: continues to require inpatient care. Full Code. Visit type - Emergency Visit Emergency Visit: Yes ED Registration Date: 09/13/16 Care time: The patient presented to the Emergency Department on the above date and was hospitalized for further evaluation of their emergent condition. - New Patient This patient is new to me today: No - Critical Care Critical Care patient: No
[2016-09-16] MEDS: IBUPROFEN 600 MG TABLET (FP) PO PRN (20:16)
--- NOTE | 2016-09-16 21:22 | PN ---
Progress Note, Physician History of Present Illness: 56 year old woman with history of ovarian Ca, last chemotherapy 04/05, HTN, DM, who comes in with 2 days of complaints of chest pain and cough. This afternoon she complained of severe headache, and became lethargic, though it seems that the lethargy followed administration of hydromorphone. Prior to administration of hydromorphone, however, the patient had a brief period of unresponsiveness, but then spontaneously became responsive again. No convulsive activity noted. The patient no longer describes severe headache, typical of her migraine, with associated sense of room spinning, also typical of her migraine, with photophobia, phonophobia. Her headaches have been present since age 21, occur several times per year, are often precipitated by stress and changes in weather. She sometimes has sensory changes with right sided tingling and numbness. She now tells us of a history of partial complex seizures since childhood. She has not been on medication since age 19 or 20, and continues to have seizures 2- 3 times per year. She doesn't drive. She sometimes passes out and sometimes convulses (but not always). No new events though sometimes feels lightheaded and headachey when she gets up. - Current Medication List Current Medications: Active Medications Al Hydroxide/Mg Hydroxide (Mylanta Oral Suspension -) 30 ml PO Q6H PRN PRN Reason: DYSPEPSIA Aspirin (Asa -) 81 mg PO DAILY [facility] Last Admin: 09/16/16 10:06 Dose: 81 mg Atorvastatin Calcium (Lipitor -) 10 mg PO HS [facility] Last Admin: 09/15/16 21:49 Dose: 10 mg Divalproex Sodium (Depakote -) 500 mg PO TID [facility] Last Admin: 09/16/16 14:37 Dose: 500 mg Docusate Sodium (Colace -) 300 mg PO HS [facility] Hydrocortisone (Hytone 0.5% Cream -) 1 applic TP Q6H PRN PRN Reason: itching Last Admin: 09/16/16 06:45 Dose: 1 applic Sodium Chloride (Normal Saline -) 1,000 mls @ 125 mls/hr IV ASDIR [facility] Last Admin: 09/16/16 17:30 Dose: 125 mls/hr Pantoprazole Sodium (Protonix 40mg Ivpb (Pre-Docked)) 100 mls @ 200 mls/hr IVPB DAILY [facility] Last Admin: 09/16/16 10:06 Dose: 200 mls/hr Ibuprofen (Motrin -) 600 mg PO Q8H PRN PRN Reason: PAIN Last Admin: 09/16/16 20:16 Dose: 600 mg Insulin Aspart (Novolog Vial Sliding Scale -) 1 vial SQ ACHS AYANNA PRN Reason: Protocol Last Admin: 09/16/16 17:31 Dose: Not Given Lisinopril (Prinivil) 5 mg PO DAILY [facility] Last Admin: 09/16/16 10:06 Dose: 5 mg Polyethylene Glycol (Miralax (For Daily Use) -) 17 gm PO BID [facility] Last Admin: 09/16/16 10:38 Dose: 17 grams - Objective Vital Signs: Vital Signs Temperature 98.3 F 09/16/16 13:35 Pulse Rate 91 H 09/16/16 13:35 Respiratory Rate 20 09/16/16 13:35 Blood Pressure 109/71 09/16/16 13:35 O2 Sat by Pulse Oximetry (%) 98 09/16/16 09:00 Labs: CBC, BMP 09/16/16 06:00 09/16/16 06:00 INR, PTT INR 1.04 (0.82-1.09) 09/13/16 15:38 Problem List - Problems (1) Migraine with aura, not intractable Code(s): G43.109 - MIGRAINE WITH AURA, NOT INTRACTABLE, W/O STATUS MIGRAINOSUS Qualifiers: Status migrainosus presence: without status migrainosus Qualified Code(s): G43.109 - Migraine with aura, not intractable, without status migrainosus (2) Unruptured cerebral aneurysm Code(s): I67.1 - CEREBRAL ANEURYSM, NONRUPTURED (3) 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 Usually I wouldn't prophylax for this, but she should be treated for her epilepsy and we can choose and agent that is appropriate for both. Continue Depakote 500 mg TID.
[2016-09-16] MEDS ORDERED: INSULIN (NOVOLOG) ASPART 100 UNITS/ML 10ML VIAL ONE (22:03)
[2016-09-16] MEDS: ATORVASTATIN CA 10 MG TABLET (FP) PO SCH (22:19)
[2016-09-16] MEDS: DOCUSATE SODIUM 100 MG CAPSULE (FP) PO SCH (22:19)
[2016-09-17] MEDS ORDERED: PT OWN MED DRAWER 7, Y5N ONE ×3 (06:00→22:52)
[2016-09-17] MEDS: DIVALPROEX SODIUM 500 MG TABLET E.C. PO SCH ×3 (06:04→23:09)
[2016-09-17] MEDS: INSULIN SLIDING SCALE (NOVOLOG) 1 VIAL SQ SCH ×4 (06:08→23:09)
[2016-09-17 07:09] LABS: EOSINOPHIL 9.6 % (0-4.5); MCH 29.2 pg (25.7-33.7); MCHC 33.8 g/dl (32.0-36.0); MEAN CELL VOLUME 86.4 fl (80-96); MEAN PLT VOLUME 8.6 fl (7.5-11.1); NEUTROPHILS 21.3 % (42.8-82.8); PLATELET COUNT 264 K/MM3 (134-434); RDW 13.9 % (11.6-15.6); WHITE BLOOD COUNT 3.5 K/mm3 (4.0-10.0)
[2016-09-17 07:28] LABS: ALBUMIN 3.1 g/dl (3.4-5.0); ANION GAP 10 (8-16); BILIRUBIN,TOTAL 0.5 mg/dL (0.2-1.0); CALCIUM 8.7 mg/dL (8.5-10.1); CO2 26 mmol/L (21-32); CREATININE 0.7 mg/dL (0.55-1.02); GLUCOSE,RANDOM 89 mg/dL (74-106); SGOT/AST 16 U/L (15-37); SGPT/ALT 25 U/L (12-78); TOT PROT 5.9 g/dl (6.4-8.2)
[2016-09-17 07:29] LABS: ALK PHOS 50 U/L (45-117)
--- NOTE | 2016-09-17 08:31 | PN ---
Progress Note (short form) - Note Progress Note: HPI: 56 year old woman with history of ovarian Ca, last chemotherapy 04/05, HTN , DM, who comes in with 2 days of complaints of chest pain and cough. This afternoon she complained of severe headache, and became lethargic, though it seems that the lethargy followed administration of hydromorphone. Prior to administration of hydromorphone, however, the patient had a brief period of unresponsiveness, but then spontaneously became responsive again. No convulsive activity noted. The patient no longer describes severe headache, typical of her migraine, with associated sense of room spinning, also typical of her migraine, with photophobia, phonophobia. Her headaches have been present since age 21, occur several times per year, are often precipitated by stress and changes in weather. She sometimes has sensory changes with right sided tingling and numbness. She now tells us of a history of partial complex seizures since childhood. She has not been on medication since age 19 or 20, and continues to have seizures 2- 3 times per year. She doesn't drive. She sometimes passes out and sometimes convulses (but not always). FU : no new events, this MA conversaive, hx of seziures since she was 21; last seziure in 04/05 as per her, does not recall prior AEDs tolerating depakote - Current Medication List Current Medications: Active Medications Al Hydroxide/Mg Hydroxide (Mylanta Oral Suspension -) 30 ml PO Q6H PRN PRN Reason: DYSPEPSIA Aspirin (Asa -) 81 mg PO DAILY [facility] Last Admin: 09/15/16 09:13 Dose: 81 mg Atorvastatin Calcium (Lipitor -) 10 mg PO HS [facility] Sodium Chloride (Normal Saline -) 1,000 mls @ 125 mls/hr IV ASDIR [facility] Last Admin: 09/15/16 16:33 Dose: 125 mls/hr Ibuprofen (Motrin -) 600 mg PO Q8H PRN PRN Reason: PAIN Lisinopril (Prinivil) 5 mg PO DAILY [facility] Last Admin: 09/15/16 09:13 Dose: 5 mg Metformin HCl (Glucophage -) 500 mg PO AM [facility] Last Admin: 09/15/16 06:33 Dose: Not Given Pantoprazole Sodium (Protonix -) 40 mg PO DAILY [facility] Last Admin: 09/15/16 13:52 Dose: 40 mg - Objective Vital Signs: Vital Signs Temperature 97.8 F 09/17/16 06:00 Pulse Rate 90 09/17/16 06:00 Respiratory Rate 20 09/17/16 06:00 Blood Pressure 111/63 09/17/16 06:00 O2 Sat by Pulse Oximetry (%) 98 09/16/16 22:00 Neurological: Yes: Alert, Oriented, Cran Nerves II-XII Intact ...Motor Strength: WNL Labs: CBCD WBC 3.5 K/mm3 (4.0-10.0) L 09/17/16 06:00 RBC 3.77 M/mm3 (3.60-5.2) 09/17/16 06:00 Hgb 11.0 GM/dL (10.7-15.3) 09/17/16 06:00 Hct 32.6 % (32.4-45.2) 09/17/16 06:00 MCV 86.4 fl (80-96) 09/17/16 06:00 MCHC 33.8 g/dl (32.0-36.0) 09/17/16 06:00 RDW 13.9 % (11.6-15.6) 09/17/16 06:00 Plt Count 264 K/MM3 (134-434) 09/17/16 06:00 MPV 8.6 fl (7.5-11.1) 09/17/16 06:00 CMP Sodium 144 mmol/L (136-145) 09/17/16 06:00 Potassium 4.2 mmol/L (3.5-5.1) 09/17/16 06:00 Chloride 108 mmol/L (98-107) H 09/17/16 06:00 Carbon Dioxide 26 mmol/L (21-32) 09/17/16 06:00 Anion Gap 10 (8-16) 09/17/16 06:00 BUN 11 mg/dL (7-18) 09/17/16 06:00 Creatinine 0.7 mg/dL (0.55-1.02) 09/17/16 06:00 Creat Clearance w eGFR > 60 (>60) 09/17/16 06:00 Calcium 8.7 mg/dL (8.5-10.1) 09/17/16 06:00 Total Bilirubin 0.5 mg/dL (0.2-1.0) 09/17/16 06:00 AST 16 U/L (15-37) 09/17/16 06:00 ALT 25 U/L (12-78) 09/17/16 06:00 Alkaline Phosphatase 50 U/L (45-117) 09/17/16 06:00 Total Protein 5.9 g/dl (6.4-8.2) L 09/17/16 06:00 Albumin 3.1 g/dl (3.4-5.0) L 09/17/16 06:00 Problem List - Problems (1) Migraine with aura, not intractable Code(s): G43.109 - MIGRAINE WITH AURA, NOT INTRACTABLE, W/O STATUS MIGRAINOSUS Qualifiers: Status migrainosus presence: without status migrainosus Qualified Code(s): G43.109 - Migraine with aura, not intractable, without status migrainosus (2) Unruptured cerebral aneurysm Code(s): I67.1 - CEREBRAL ANEURYSM, NONRUPTURED (3) 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 Recommend Depakote Code(s): G40.009 - LOCAL-REL IDIO EPI W SEIZ OF LOC ONST,NOT NTRCT,W/O STAT EPI Assessment/Plan 1) continue with depkaote but will change to BID to help with compliance-- needs FU. if no new events can likley be followed as an outpt. 2) MRA findings noted-- needs repeat MRA 6 months, FU aneurysms. Dr Rodirguez [phone]
--- NOTE | 2016-09-17 09:03 | PN ---
Progress Note (short form) - Note Progress Note: Subjective: The patient was seen and examined at the bedside, she remains NPO, is going for EGD and esophogram today F/u ENT consult Current Medications Generic Name Dose Route Start Last Admin Trade Name Freq PRN Reason Stop Dose Admin Al Hydroxide/Mg Hydroxide 30 ml 09/14/16 23:43 09/16/16 22:24 Mylanta Oral Suspension - PO 30 ml Q6H PRN Administration DYSPEPSIA Aspirin 81 mg 09/15/16 10:00 09/16/16 10:06 Asa - PO 81 mg DAILY AYANNA Administration Atorvastatin Calcium 10 mg 09/15/16 22:00 09/16/16 22:19 Lipitor - PO 10 mg HS AYANNA Administration Divalproex Sodium 500 mg 09/17/16 10:00 Depakote - PO BID AYANNA Docusate Sodium 300 mg 09/16/16 22:00 09/16/16 22:19 Colace - PO 300 mg HS AYANNA Administration Hydrocortisone 1 applic 09/16/16 02:00 09/16/16 22:25 Hytone 0.5% Cream - TP 1 applic Q6H PRN Administration itching Pantoprazole Sodium 100 mls @ 200 mls/hr 09/16/16 10:00 09/16/16 10:06 Protonix 40mg Ivpb (Pre-Docked) IVPB 200 mls/hr DAILY AYANNA Administration Dextrose/Sodium Chloride 1,000 mls @ 75 mls/hr 09/17/16 06:30 D5-1/2ns - IV ASDIR AYANNA Ibuprofen 600 mg 09/14/16 23:43 09/16/16 20:16 Motrin - PO 600 mg Q8H PRN Administration PAIN Insulin Aspart 1 vial 09/15/16 22:00 09/17/16 06:08 Novolog Vial Sliding Scale - SQ Not Given ACHS [facility] Protocol Lisinopril 5 mg 09/15/16 10:00 09/16/16 10:06 Prinivil PO 5 mg DAILY AYANNA Administration Polyethylene Glycol 17 gm 09/16/16 10:00 09/16/16 22:19 Miralax (For Daily Use) - PO 17 grams BID AYANNA Administration Objective: Vital Signs Period Temp Pulse Resp BP Sys/Leach Pulse Ox Last 24 Hr 97.8 F-98.3 F 72-91 20-20 109-118/55-71 98 Physical Exam: General: NAD, A&Ox3 Lungs: CTA bilaterally Heart: RRR, S1S2 Abd: Soft, non-tender, non-distended. Normoactive bowel sounds Ext: Warm, well-perfused, 2+ DP/PT bilaterally Neuro: CN 2-12 intact CBCD WBC 3.5 K/mm3 (4.0-10.0) L 09/17/16 06:00 RBC 3.77 M/mm3 (3.60-5.2) 09/17/16 06:00 Hgb 11.0 GM/dL (10.7-15.3) 09/17/16 06:00 Hct 32.6 % (32.4-45.2) 09/17/16 06:00 MCV 86.4 fl (80-96) 09/17/16 06:00 MCHC 33.8 g/dl (32.0-36.0) 09/17/16 06:00 RDW 13.9 % (11.6-15.6) 09/17/16 06:00 Plt Count 264 K/MM3 (134-434) 09/17/16 06:00 MPV 8.6 fl (7.5-11.1) 09/17/16 06:00 CMP Sodium 144 mmol/L (136-145) 09/17/16 06:00 Potassium 4.2 mmol/L (3.5-5.1) 09/17/16 06:00 Chloride 108 mmol/L (98-107) H 09/17/16 06:00 Carbon Dioxide 26 mmol/L (21-32) 09/17/16 06:00 Anion Gap 10 (8-16) 09/17/16 06:00 BUN 11 mg/dL (7-18) 09/17/16 06:00 Creatinine 0.7 mg/dL (0.55-1.02) 09/17/16 06:00 Creat Clearance w eGFR > 60 (>60) 09/17/16 06:00 Random Glucose 89 mg/dL (74-106) 09/17/16 06:00 Calcium 8.7 mg/dL (8.5-10.1) 09/17/16 06:00 Total Bilirubin 0.5 mg/dL (0.2-1.0) 09/17/16 06:00 AST 16 U/L (15-37) 09/17/16 06:00 ALT 25 U/L (12-78) 09/17/16 06:00 Alkaline Phosphatase 50 U/L (45-117) 09/17/16 06:00 Total Protein 5.9 g/dl (6.4-8.2) L 09/17/16 06:00 Albumin 3.1 g/dl (3.4-5.0) L 09/17/16 06:00 CARDIAC ENZYMES Creatine Kinase 129 IU/L (26-192) 09/13/16 15:38 Troponin I < 0.02 ng/ml (0.00-0.05) 09/14/16 21:00 Imaging: Chest X-ray: no acute disease Chest CTA: no evidence of pulmonary embolism or acute pathology within the chest Brain MRI: No definite intracranial abnormalitiy is identified. Moderate to marked bilateral ethmoid and mild bilateral maxillary sinus mucosal thickening Brain MRA: 4mm aneurysm involving the cavernous portion of the right internal carotid artery. 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), absence seizures who presented to the ED with chest pain, right upper back pain, cough, subjective fever x2 days Plan: 1) Cardiology: Chest pain - Trop x3 negative - EKG NSR - Chest CTA negative for pulmonary embolism 2) Neurology: Absence seizures - Episode two days ago - Started on Depakote 500mg tid, however will decrease to BID to help with compliance per neuro - Will need close outpatient follow-up Unruptured aneurysms - As above - Chronic finding - Close outpatient follow-up with neurology 3) Dysphagia in setting of ovarian cancer - Patient reports mid sternal pain radiating to scapula every time she swallows food - Remains NPO since 09/15 - F/u esophogram - F/u modified barium swallow - F/u ENT consult 4) Endocrine: NIDDM - BGM ACHS - ISS ACHS 5) Oncology: Ovarian cancer - Follows with oncologist Dr. Ordonez at [facility] [place] ([phone]) every 3 months; last saw her June 2016 and was told everything was fine, next appointment in September 5) F/E/N: - Monitor electrolytes - NPO for now given dysphagia 6) Prophylaxis: - OOB ambulating - SCDs bilaterally - Will hold chemical anticoagulation until evaluation with ENT 7) Dispo: - Once condition improves CODE STATUS: FULL CODE Visit type - Emergency Visit Emergency Visit: Yes ED Registration Date: 09/13/16 Care time: The patient presented to the Emergency Department on the above date and was hospitalized for further evaluation of their emergent condition. - New Patient This patient is new to me today: Yes Date on this admission: 09/17/16 - Critical Care Critical Care patient: No
--- NOTE | 2016-09-17 09:40 | CONSULT ---
Admitting History and Physical - Primary Care Physician PCP: Tamra Wallace - Admission History of Present Illness: Mrs. Staton is a 56 y/o woman w/ HTN, HL, DM, migraine HAs, & ovarian Ca s/p CARMEL & Chemo @ [facility] [place] (last chemotherapy 04/05) admitted to the ED with CP & cough. Had severe GLASER and became lethargic, brief episode of unresponsiveness prior to adm of hydromorphone, but then spontaneously became responsive again. No reported Szs. A Stroke code was called. NCHCT negative, MRI Brain shows no bleed no thrombo. Pt reported symptoms of sudden onset odynophagia 09/11, with radiating pain to right back, which progressed, resulting in hospitalization. Pt is NPO with MBS/ esophagram pending today, ordered by GI. History Source: Patient Limitations to Obtaining History: No Limitations - Past Medical History SEARCH PLANNER: Yes: Migraine, Seizure, TIA, Other (aneurysm/stroke, ) Cardiovascular: Yes: HTN Gastrointestinal: Yes: Other (PAINFUL AND DIFFICULTY SWALLOWING) Heme/Onc: Yes: Other (HISTORY OF OVARIAN CANCER) Endocrine: Yes: Diabetes Mellitus - Past Surgical History Past Surgical History: Yes: Hysterectomy - Smoking History Smoking history: Never smoked Have you smoked in the past 12 months: No Aproximately how many cigarettes per day: 0 - Alcohol/Substance Use Hx Alcohol Use: No - Social History ADL: Independent History of Recent Travel: No History - Admission Reason For Visit: CHEST PAIN - Diagnostics MRI: Report Reviewed (MRA/MRI Brain 09/14: 4 X 2.3mm patent saccular aneurysm is noted along the paraclinoid segement of the R internal carotid artery. Note is also made of a 3 X 2 mm patent saccular aneurysm along the medial aspect of the R cavernous carotid artery adjacent to the anterior degenerative) - General Mental Status: Alert and Oriented, Awake and Alert, Able to Follow Commands Attention: Intact Ability to Follow Directions: Excellent Head/Neck Control: WFL - Hearing Hearing: Normal Speech Evaluation - Communication Primary Language: LAO Secondary Language: [place] (fluent) Communication: Yes: Within Normal Limits Oral Expression Ability: Yes: No Impairment - Speech Characteristics Voice Loudness: Normal Voice Pitch: Yes: Normal Voice Phonatory-based Quality: Yes: Normal Speech Pattern: Normal - Swallow Evaluation/Bedside Assessment Current Nutritional Intake: NPO Oral Secretions: Yes: WFL Dentition: Yes: Adequate Facial Symmetry at Rest: Symmetrical Facial Symmetry on Retraction: Symmetrical Facial Movement: Controlled Against Resistance Opening: Normal Against Resistance Closing: Normal Pucker Lips: Normal Smile: Normal Lingual Movement: Normal, Symmetric Lingual Speed of Movement: Normal Lingual Movement Strgth Against Opposition: Normal Lingual Movement Characteristics: Normal Soft Palate Description: Normal Color, Normal Symmetry Hard Palate Description: Normal Color, Normal Symmetry Velopharyngeal Movement: Normal Laryngeal Elevation: WFL Laryngeal Movement: Able to Palpate Labial Seal: WFL Oral Prep Time: WFL A-P Transit: WFL Pocketing: None Timing of Swallow: WFL Odynophagia: Pharyngeal Coughing/Throat Clear: No Change in Voice: No Recommendations - Speech Evaluation, Impression/Plan Impression: Persistent odynophagia/ radiating to right back,not specifically in laryngeal region, with trial of sips of water. No signs of marie intraorally. - Dysphagia Impressions/Plan *Silent aspiration: cannot be R/O at bedside Recommendations: Modified Barium Swallow
[2016-09-17] MEDS: ASPIRIN 81 MG CHEWABLE TABLETS PO SCH (11:29)
[2016-09-17] MEDS: PANTOPRAZOLE SODIUM 100 ML IVPB SCH (11:29)
[2016-09-17] MEDS: LISINOPRIL 5 MG TABLET (FP) PO SCH (11:29)
[2016-09-17] MEDS: DEXTROSE 5%-0.45% SALINE 1,000 ML IV SCH (11:30)
[2016-09-17] MEDS: POLYETHYLENE GLYCOL 3350 119 GM BTL PO SCH ×2 (11:37→23:09)
[2016-09-17] MEDS: HYDROCORTISONE 0.5% TOPICAL CREAM 30 GM TUBE TP PRN ×2 (11:40→23:09)
[2016-09-17] MEDS: ATORVASTATIN CA 10 MG TABLET (FP) PO SCH (23:09)
[2016-09-17] MEDS: DOCUSATE SODIUM 100 MG CAPSULE (FP) PO SCH (23:09)
[2016-09-18] MEDS ORDERED: INSULIN (NOVOLOG) ASPART 100 UNITS/ML 10ML VIAL ONE (06:07)
[2016-09-18] MEDS: DEXTROSE 5%-0.45% SALINE 1,000 ML IV SCH ×2 (06:25→09:54)
[2016-09-18] MEDS: INSULIN SLIDING SCALE (NOVOLOG) 1 VIAL SQ SCH ×4 (06:25→22:51)
--- NOTE | 2016-09-18 09:18 | PN ---
Progress Note (short form) - Note Progress Note: HPI: 56 year old woman with history of ovarian Ca, last chemotherapy 04/05, HTN , DM, who comes in with 2 days of complaints of chest pain and cough. This afternoon she complained of severe headache, and became lethargic, though it seems that the lethargy followed administration of hydromorphone. Prior to administration of hydromorphone, however, the patient had a brief period of unresponsiveness, but then spontaneously became responsive again. No convulsive activity noted. The patient no longer describes severe headache, typical of her migraine, with associated sense of room spinning, also typical of her migraine, with photophobia, phonophobia. Her headaches have been present since age 21, occur several times per year, are often precipitated by stress and changes in weather. She sometimes has sensory changes with right sided tingling and numbness. She now tells us of a history of partial complex seizures since childhood. She has not been on medication since age 19 or 20, and continues to have seizures 2- 3 times per year. She doesn't drive. She sometimes passes out and sometimes convulses (but not always). hx of seziures since she was 21; last seziure in 04/05 as per her, does not recall prior AEDs FU : no new events, feels swallowing better and barium was WNL tolerating depakote 500BID MRI Cspine prelim to my eye, C5/C6 and C6/C7 osteophytes with mild-mod cord compression on R, no cord signanl abnl ( test was ordered for swallowing issue, so not sure if clinically sympomatic)--no clear neck pain , radiating pains, falls etc - Current Medication List Current Medications: Active Medications Al Hydroxide/Mg Hydroxide (Mylanta Oral Suspension -) 30 ml PO Q6H PRN PRN Reason: DYSPEPSIA Aspirin (Asa -) 81 mg PO DAILY [facility] Last Admin: 09/15/16 09:13 Dose: 81 mg Atorvastatin Calcium (Lipitor -) 10 mg PO HS AYANNA Sodium Chloride (Normal Saline -) 1,000 mls @ 125 mls/hr IV ASDIR [facility] Last Admin: 09/15/16 16:33 Dose: 125 mls/hr Ibuprofen (Motrin -) 600 mg PO Q8H PRN PRN Reason: PAIN Lisinopril (Prinivil) 5 mg PO DAILY [facility] Last Admin: 09/15/16 09:13 Dose: 5 mg Metformin HCl (Glucophage -) 500 mg PO AM [facility] Last Admin: 09/15/16 06:33 Dose: Not Given Pantoprazole Sodium (Protonix -) 40 mg PO DAILY [facility] Last Admin: 09/15/16 13:52 Dose: 40 mg - Objective Vital Signs: CBC, BMP 09/17/16 06:00 09/17/16 06:00 Neurological: Yes: Alert, Oriented, Cran Nerves II-XII Intact ...Motor Strength: WNL Labs: CBCD WBC 3.5 K/mm3 (4.0-10.0) L 09/17/16 06:00 RBC 3.77 M/mm3 (3.60-5.2) 09/17/16 06:00 Hgb 11.0 GM/dL (10.7-15.3) 09/17/16 06:00 Hct 32.6 % (32.4-45.2) 09/17/16 06:00 MCV 86.4 fl (80-96) 09/17/16 06:00 MCHC 33.8 g/dl (32.0-36.0) 09/17/16 06:00 RDW 13.9 % (11.6-15.6) 09/17/16 06:00 Plt Count 264 K/MM3 (134-434) 09/17/16 06:00 MPV 8.6 fl (7.5-11.1) 09/17/16 06:00 CMP Sodium 144 mmol/L (136-145) 09/17/16 06:00 Potassium 4.2 mmol/L (3.5-5.1) 09/17/16 06:00 Chloride 108 mmol/L (98-107) H 09/17/16 06:00 Carbon Dioxide 26 mmol/L (21-32) 09/17/16 06:00 Anion Gap 10 (8-16) 09/17/16 06:00 BUN 11 mg/dL (7-18) 09/17/16 06:00 Creatinine 0.7 mg/dL (0.55-1.02) 09/17/16 06:00 Creat Clearance w eGFR > 60 (>60) 09/17/16 06:00 Calcium 8.7 mg/dL (8.5-10.1) 09/17/16 06:00 Total Bilirubin 0.5 mg/dL (0.2-1.0) 09/17/16 06:00 AST 16 U/L (15-37) 09/17/16 06:00 ALT 25 U/L (12-78) 09/17/16 06:00 Alkaline Phosphatase 50 U/L (45-117) 09/17/16 06:00 Total Protein 5.9 g/dl (6.4-8.2) L 09/17/16 06:00 Albumin 3.1 g/dl (3.4-5.0) L 09/17/16 06:00 Problem List - Problems (1) Migraine with aura, not intractable Code(s): G43.109 - MIGRAINE WITH AURA, NOT INTRACTABLE, W/O STATUS MIGRAINOSUS Qualifiers: Status migrainosus presence: without status migrainosus Qualified Code(s): G43.109 - Migraine with aura, not intractable, without status migrainosus (2) Unruptured cerebral aneurysm Code(s): I67.1 - CEREBRAL ANEURYSM, NONRUPTURED (3) 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 Recommend Depakote Code(s): G40.009 - LOCAL-REL IDIO EPI W SEIZ OF LOC ONST,NOT NTRCT,W/O STAT EPI 4) Cervical spondylosis with radiographic evidence of cord compression Assessment/Plan 1) continue with depkaote 500BID 2) MRA findings noted-- needs repeat MRA 6 months, FU aneurysms. 3) Neurosurgery eval for MRI C spine findings ( FU official), Dr Becker; Dr Rodriguez [phone]
[2016-09-18] MEDS ORDERED: PT OWN MED DRAWER 7, Y5N ONE ×4 (09:50→21:48)
[2016-09-18] MEDS: DIVALPROEX SODIUM 500 MG TABLET E.C. PO SCH ×2 (09:55→22:48)
[2016-09-18] MEDS: ASPIRIN 81 MG CHEWABLE TABLETS PO SCH (09:55)
[2016-09-18] MEDS: HYDROCORTISONE 0.5% TOPICAL CREAM 30 GM TUBE TP PRN (09:56)
[2016-09-18] MEDS: LISINOPRIL 5 MG TABLET (FP) PO SCH (09:56)
[2016-09-18] MEDS: PANTOPRAZOLE SODIUM 100 ML IVPB SCH (09:56)
--- NOTE | 2016-09-18 11:15 | PN ---
Progress Note (short form) - Note Progress Note: Subjective: The patient was seen and examined at the bedside, she remains NPO, is going for EGD and esophogram today MRI with moderate cord compression C5-C6 Decadron 4mg IVPB Neurosurgery consult Current Medications Generic Name Dose Route Start Last Admin Trade Name Freq PRN Reason Stop Dose Admin Al Hydroxide/Mg Hydroxide 30 ml 09/14/16 23:43 09/16/16 22:24 Mylanta Oral Suspension - PO 30 ml Q6H PRN Administration DYSPEPSIA Aspirin 81 mg 09/15/16 10:00 09/18/16 09:55 Asa - PO 81 mg DAILY AYANNA Administration Atorvastatin Calcium 10 mg 09/15/16 22:00 09/17/16 23:09 Lipitor - PO 10 mg HS AYANNA Administration Dexamethasone Sodium Phosphate 4 mg 09/18/16 11:10 Decadron Injection - IVPB 09/18/16 11:11 ONCE ONE Divalproex Sodium 500 mg 09/17/16 10:00 09/18/16 09:55 Depakote - PO 500 mg BID AYANNA Administration Docusate Sodium 300 mg 09/16/16 22:00 09/17/16 23:09 Colace - PO 300 mg HS AYANNA Administration Hydrocortisone 1 applic 09/16/16 02:00 09/18/16 09:56 Hytone 0.5% Cream - TP 1 applic Q6H PRN Administration itching Pantoprazole Sodium 100 mls @ 200 mls/hr 09/16/16 10:00 09/18/16 09:56 Protonix 40mg Ivpb (Pre-Docked) IVPB 200 mls/hr DAILY AYANNA Administration Dextrose/Sodium Chloride 1,000 mls @ 75 mls/hr 09/17/16 06:30 09/18/16 09:54 D5-1/2ns - IV 75 mls/hr ASDIR AYANNA Administration Ibuprofen 600 mg 09/14/16 23:43 09/16/16 20:16 Motrin - PO 600 mg Q8H PRN Administration PAIN Insulin Aspart 1 vial 09/15/16 22:00 09/18/16 06:25 Novolog Vial Sliding Scale - SQ Not Given ACHS AYANNA Protocol Lisinopril 5 mg 09/15/16 10:00 09/18/16 09:56 Prinivil PO Not Given DAILY AYANNA Polyethylene Glycol 17 gm 09/16/16 10:00 09/17/16 23:09 Miralax (For Daily Use) - PO 17 grams BID AYANNA Administration Objective: Vital Signs Period Temp Pulse Resp BP Sys/Leach Pulse Ox Last 24 Hr 97.2 F-98.6 F 71-85 16-16 91-116/57-81 98 Physical Exam: General: NAD, A&Ox3 Lungs: CTA bilaterally Heart: RRR, S1S2 Abd: Soft, non-tender, non-distended. Normoactive bowel sounds Ext: Warm, well-perfused, 2+ DP/PT bilaterally Neuro: CN 2-12 intact CBCD WBC 3.5 K/mm3 (4.0-10.0) L 09/17/16 06:00 RBC 3.77 M/mm3 (3.60-5.2) 09/17/16 06:00 Hgb 11.0 GM/dL (10.7-15.3) 09/17/16 06:00 Hct 32.6 % (32.4-45.2) 09/17/16 06:00 MCV 86.4 fl (80-96) 09/17/16 06:00 MCHC 33.8 g/dl (32.0-36.0) 09/17/16 06:00 RDW 13.9 % (11.6-15.6) 09/17/16 06:00 Plt Count 264 K/MM3 (134-434) 09/17/16 06:00 MPV 8.6 fl (7.5-11.1) 09/17/16 06:00 CMP Sodium 144 mmol/L (136-145) 09/17/16 06:00 Potassium 4.2 mmol/L (3.5-5.1) 09/17/16 06:00 Chloride 108 mmol/L (98-107) H 09/17/16 06:00 Carbon Dioxide 26 mmol/L (21-32) 09/17/16 06:00 Anion Gap 10 (8-16) 09/17/16 06:00 BUN 11 mg/dL (7-18) 09/17/16 06:00 Creatinine 0.7 mg/dL (0.55-1.02) 09/17/16 06:00 Creat Clearance w eGFR > 60 (>60) 09/17/16 06:00 Random Glucose 89 mg/dL (74-106) 09/17/16 06:00 Calcium 8.7 mg/dL (8.5-10.1) 09/17/16 06:00 Total Bilirubin 0.5 mg/dL (0.2-1.0) 09/17/16 06:00 AST 16 U/L (15-37) 09/17/16 06:00 ALT 25 U/L (12-78) 09/17/16 06:00 Alkaline Phosphatase 50 U/L (45-117) 09/17/16 06:00 Total Protein 5.9 g/dl (6.4-8.2) L 09/17/16 06:00 Albumin 3.1 g/dl (3.4-5.0) L 09/17/16 06:00 CARDIAC ENZYMES Creatine Kinase 129 IU/L (26-192) 09/13/16 15:38 Troponin I < 0.02 ng/ml (0.00-0.05) 09/14/16 21:00 Imaging: Chest X-ray: no acute disease Chest CTA: no evidence of pulmonary embolism or acute pathology within the chest Brain MRI: No definite intracranial abnormalitiy is identified. Moderate to marked bilateral ethmoid and mild bilateral maxillary sinus mucosal thickening Brain MRA: 4mm aneurysm involving the cavernous portion of the right internal carotid artery. 3mm aneurysm involving the right internal carotid artery Head CT: No intracranial hemorrhage Barium swallow: There is suggestion of a small hiatus hernia without evidence of a stricture or gross mucosal ulcerations Cervical spine MRI: moderate cervical cord compression at C5-C6 level with moderate narrowing of the right foramen impinging right C6 nerve root and mild to moderate at C6-C7 level Thoracic spine MRI: Mild disc bulge at T6-T7, T7-T8, T9-T10 level without cord or nerve root impingement. ECHO with normal LV size and function. 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 Becker's office and left message for call back to discuss the patient 2) Cardiology: Chest pain - Trop x3 negative - EKG NSR - Chest CTA negative for pulmonary embolism 3) Neurology: Absence seizures - Episode three days ago - Continue Depakote 500mg po bid - Will need close outpatient follow-up Unruptured aneurysms - As above - Chronic finding - Close outpatient follow-up with neurology 4) Dysphagia in setting of ovarian cancer - Patient reports mid sternal pain radiating to scapula every time she swallows food - Remains NPO since 09/15 - Imaging as above - F/u ENT consult 5) Endocrine: NIDDM - BGM ACHS - ISS ACHS 6) Oncology: Ovarian cancer - Follows with oncologist Dr. Ordonez at [facility] [place] ([phone]) every 3 months; last saw her June 2016 and was told everything was fine, next appointment in September 7) F/E/N: - Monitor electrolytes - NPO for now until evaluation from neurosurgery 8) Prophylaxis: - OOB ambulating - SCDs bilaterally - Will hold chemical anticoagulation until evaluation with ENT 9) Dispo: - Once condition improves CODE STATUS: FULL CODE Visit type - Emergency Visit Emergency Visit: Yes ED Registration Date: 09/13/16 Care time: The patient presented to the Emergency Department on the above date and was hospitalized for further evaluation of their emergent condition. - New Patient This patient is new to me today: No - Critical Care Critical Care patient: No
[2016-09-18] MEDS: POLYETHYLENE GLYCOL 3350 119 GM BTL PO SCH ×2 (11:36→22:50)
[2016-09-18] MEDS ORDERED: DEXAMETHASONE SOD PHOSPHATE 4 MG/1 ML VIAL IVPB ONE (11:45)
--- NOTE | 2016-09-18 14:39 | PN ---
Progress Note (short form) - Note Progress Note: NEUROSURGERY CONSULT Chart reviewed Pt examined Imaging studies reviewed H/o ovarian Ca, HTN, DM was admitted for chest pain and cough. C/o severe headache, and became lethargic. c/o brief unresponsiveness. Some neck pain earlier but not now. Still decreased ROM and spasm. No arm or leg weakness, numbness, tingling, or bowel/bladder dysfunction. PE: AF, VSS HEENT- NC/AT; Neck- flexion 20 degrees and extension 0 degrees; Cor- RR; Lungs- CTA B; Abd- benign, + BS; Ext- no sign of DVT A/A/Ox4 CN- intact; Motor- 5/5 B UE/LE; Sensation- intact LT/proprioception; DTR- hyporeflexic, no LTS WBC 3.5; Hgb 11 Brain MRI- no acute stroke Brain MRA- 4 mm R cavernous ICA and 3 mm priscilla-ophthalmic paraclinoid scaular aneurysm Head CT- no acute bleed C spine MRI- OPLL, central R C5-6 paracentral disc protrusion with mild cord impingement; broad-based central dis protrusion C6-7 with thecal sac impingement ; mild C4-5 disc bulge T spine MRI- T6-7, T7-8, T9-10 DDD/bulges without cord compression Asymptomatic small (<7 mm) R ICA aneurysm x2 Cervical stenosis/HNP/OPLL with neck pain but no associated deficits Pros and cons of treatment approaches discussed and pt opts for conservative tx/ observation only D/w medical team
[2016-09-18] MEDS ORDERED: MECLIZINE HCL 25 MG TABLET (FP) PO ONE (15:24)
--- NOTE | 2016-09-18 16:04 | DS ---
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 Please follow-up with providers as indicated. Please follow-up with your neurologist, Dr. Rodriguez within 1 week for further management of your seizures and to schedule a repeat MRI brain to evaluate your aneurysms in 6 months. Please follow-up with Dr. Becker (neurosurgery) within 1-2 weeks for further management of your C5-C5 spinal cord impingement. Please follow-up with your oncologist as scheduled on October 11, 2016. Please provide your oncologist with all imaging reports you had during your hospital stay. Referrals: Ludin Smith MD [Staff Physician] - (Please follow-up with Dr. Smith ( general surgery), for an evaluation of your hiatal hernia as an outpatient ) Sebastián Connors DO [Staff Physician] - (Please follow-up with GI for reevalation of pain when swallowing if it returns) Eamon Rodriguez DO [Staff Physician] - 1 Week Ian Becker MD [Staff Physician] - 1 Week Eleazar Ken [Primary Care Provider] - 1 Week Disposition: HOME - Home Medications Comprehensive Discharge Medication List: Ambulatory Orders Aspirin [Children's Aspirin] 81 mg PO DAILY #0 tab 09/18/16 Divalproex [Depakote -] 500 mg PO BID #120 tablet.ec 09/18/16 Docusate Sodium [Colace -] 300 mg PO HS tab 09/18/16 Lisinopril [Zestril] 2.5 mg PO DAILY #0 tab 09/18/16 Meclizine HCl [Antivert -] 12.5 mg PO TID PRN #90 tablet 09/18/16 Metformin HCl [Glucophage -] 500 mg PO DAILY #0 tab 09/18/16 Pravastatin Sodium [Pravachol -] 20 mg PO HS #0 tab 09/18/16
[2016-09-18] MEDS ORDERED: LORazepam 2 MG/ML SDV VIAL ONE (17:49)
[2016-09-18] MEDS ORDERED: levETIRAcetam 500 MG/5 ML INJECTION VIAL IVPB ONE ×2 (17:56→17:59)
[2016-09-18] MEDS ORDERED: DEXAMETHASONE SOD PHOSPHATE 4 MG/1 ML VIAL IVPB SCH (18:00)
--- NOTE | 2016-09-18 18:17 | RAPID ---
Physical Examination Vital Signs: Vital Signs Temperature 98.4 F 09/18/16 14:12 Pulse Rate 78 09/18/16 14:12 Respiratory Rate 16 09/18/16 14:12 Blood Pressure 127/76 09/18/16 14:12 O2 Sat by Pulse Oximetry (%) 98 09/18/16 10:00 Rapid Response - Rapid Response Assessment: Rapid response was called at 5:45 because the patient became unresponsive. According to Hannah (RN), she was walking the patient to the bathroom when the patient began to fall backwards. RN eased the patient to the floor (no trauma to body or head) and the patient became unresponsive for 5-10 seconds. When the patient became conscious again, she stated she was dizzy and her head hurt. BP at this time 144/90, heart rate 90, spO2 on RA 95%. BGM 136. The patient then became unconscious and began to have jerky head movements with some arm involvement as well lasting about 20 seconds, terminated prior to any administration of Ativan. The patient remained flaccid and unresponsive for about 2 minutes. She then began to open her eyes only. Around 6pm, she began to speak stating her head hurt. She is not following commands however she is regaining strength in her upper and lower extremities. Plan: Discussed with Dr. Rodriguez, will load Keppra 1000mg IVPB now, followed by Keppra 750mg IVPB bid Head CT stat Prolactin level Discharge cancelled
--- NOTE | 2016-09-18 19:06 | CONS ---
DATE OF CONSULTATION: 09/18/2016 REQUESTING PHYSICIAN: Tamra Wallace NP CHIEF COMPLAINT: Neck pain and headache. HISTORY OF PRESENT ILLNESS: The patient is a 56-year-old right-handed female with history of diabetes, hypertension, ovarian CA status post chemotherapy last in March, who was admitted for severe headache and lethargy. She also has 1 syncopal episode by report. The patient's headache has improved since her admission. She did have some neck pain earlier with muscle spasm but the neck pain has improved. She remains with decreased range of motion and muscle spasm. Upon further questioning, the patient denies any Lhermitte signs. Has no bowel or bladder dysfunction. She has no leg weakness, numbness, or tingling. She did have a cervical spine MRI done last year which demonstrated OPLL, disk disease and spinal stenosis. PAST MEDICAL HISTORY: Significant for hypertension, diabetes, ovarian CA, cervical stenosis. CURRENT MEDICATIONS: Include lisinopril, Depakote, Colace, MiraLAX, Lipitor, NovoLog, aspirin, Motrin and Protonix. ALLERGIES: PENICILLIN. SOCIAL HISTORY: She lives at home. She does not smoke or drink. She is not working. REVIEW OF SYSTEMS: Otherwise negative for other major cardiovascular, pulmonary , gastrointestinal, genitourinary, endocrinologic, and neurologic or psychological problems except for the above. PHYSICAL EXAMINATION: Vital Signs: Temperature is 98.4, blood pressure is 94/62, pulse rate 80, oxygen saturation is 98% on room air. HEENT: Examination shows her to be normocephalic, atraumatic. Neck: Supple. Cor: Regular rhythm. Lungs: Clear. Abdomen: Benign. Extremities: Shows no finding of DVT. Neurologic: She is awake and alert, oriented x3. Cranial nerve examination is intact II-XII. Motor examination shows 5/5 strength without drift. Sensory examination is intact to light touch. Deep tendon reflexes are 1+ throughout. There is no pathologic or long tract findings. Gait not tested for safety reasons. Cerebellar examination demonstrates normal coordination without tremor. She has intact finger to nose examination bilaterally. Detailed examination: Her neck demonstrated paraspinal muscle spasm, predominantly mid and lower surgical spine with muscle tenderness. Cervical spine flexion is 20 degrees and extension is 0 degrees. Lateral rotation is 20 degrees in each direction. The patient is somewhat guarded because of the muscle spasm and stiffness. LABORATORY EXAMINATION: Shows white blood cell count 3.5, hemoglobin 11, and platelet count 264,000. INR is 1.04. MRI of the brain from September 14 demonstrated no acute stroke or obvious mass lesion. There is some paranasal sinus disease. This predominantly consisted of mucosal thickening. Brain MRI with and without contrast demonstrated a 3 mm right cavernous carotid artery aneurysm as well as 4-mm paracarinal/periophthalmic aneurysm. MRI of the cervical spine demonstrated multilevel degenerative disk disease. There is ossification of the posterior longitudinal ligament. There is mild disk bulge at C4-5. Essentially, right- sided C5-6 paracentral disk protrusion with mild spinal cord impingement. There is also broad based essential disk protrusion at C6-7 with thecal sac impingement. There is some loss of normal cervical lordosis. MRI of the thoracic spine demonstrated multilevel degenerative disk disease, most prominent at T6--7, T7-8, and T9-10 without spinal cord impingement. Vertebral column alignment is intact. IMPRESSION: 1. 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 2. Cervical spinal stenosis secondary to ossification of the posterior longitudinal ligament and cervical disk disease but with no signs of cervical radiculopathy or myelopathy. 3. Hypertension. 4. Diabetes. 5. History of ovarian carcinoma. RECOMMENDATIONS: The patient presents with a few days' history of increasing headache and 1 syncopal episode. Presently, she has no significant headache. She does have mild radicular neck pain and muscle spasm but the pain has improved since her admission. There are no focal neurological deficits on my examination. Two intracranial aneurysms are both small and asymptomatic. In fact, they are less than 7 mm and therefore, the annual risk for hemorrhage is less than 0.1% a year. The patient can go for elective endovascular coiling of the periophthalmic aneurysm , if she so chooses. At this point, the risk will probably outweigh the potential benefits. The patient also has concurrent cervical spine condition with cervical spinal stenosis secondary to OPLL as well as disk disease. Once again, she has no neurological deficit at this time, and it is not myelopathic or radiculopathic. Surgical intervention could be considered in the future if she were to develop some symptomatology or signs. The patient agrees that continued observation and conservative medical treatment is the way she wants to approach this problem. Unfortunately, the cervical spine condition is a surgical condition and barring surgical intervention, her stenosis is unlikely to be significantly improved. The pros and cons of treatment approaches for the above conditions were discussed with the patient at length at the bedside. All questions were answered. She is scheduled to follow up with outpatient neurology appointment and hopefully will have annual surveillance brain MRA imaging to assess the size of these 2 small asymptomatic intracranial aneurysms. She also understands to come to medical attention right away if she develops weakness of her upper and lower extremities or loss of bowel/bladder functions. NOLAN COPPOLA M.D. [id number]
[2016-09-18] MEDS: IBUPROFEN 600 MG TABLET (FP) PO PRN (20:40)
--- NOTE | 2016-09-18 21:38 | PN ---
GI Progress Note Subjective: Patient rapid reponded today at 5:45 secondary to syncope Speech and swallow eval performed yesterday revealed normal swallow mechanism with all thicknesses The formal esophagram was limited as she only took small sips of contrast. A small hiatal hernia was seen Complains of headache The pain to the back when swallowing has improved and she ate some of her dinner Her son is present at bedside - Objective Vital Signs: Vital Signs Temperature 98.0 F 09/18/16 18:00 Pulse Rate 90 09/18/16 18:00 Respiratory Rate 18 09/18/16 18:00 Blood Pressure 144/90 09/18/16 18:00 O2 Sat by Pulse Oximetry (%) 98 09/18/16 10:00 Constitutional: Calm Eyes: No: Sclera Icterus Cardiovascular: Yes: Regular Rate and Rhythm Gastrointestinal Inspection: No: Distention ...Auscultate: Yes: Normoactive Bowel Sounds ...Palpate: No: Tenderness Neurological: Yes: Alert, Oriented Labs: INR, PTT INR 1.04 (0.82-1.09) 09/13/16 15:38 Problem List - Problems (1) Dysphagia Assessment/Plan: Swallowing study unrevealing and the atypical symptom of pain in the back while swallowing has improved If it persists, upper endoscopy would be the next step in evaluation. She can be referred to the office for further evaluation as outpatient. If unable to tolerate meals and once medically cleared then EGD as inpatient Protonix 40mg once daily for 1 week Code(s): R13.10 - DYSPHAGIA, UNSPECIFIED
[2016-09-18] MEDS: DOCUSATE SODIUM 100 MG CAPSULE (FP) PO SCH (21:54)
[2016-09-18] MEDS: ATORVASTATIN CA 10 MG TABLET (FP) PO SCH (21:54)
[2016-09-18] MEDS ORDERED: levETIRAcetam 500 MG/5 ML INJECTION VIAL IVPB SCH (22:00)
[2016-09-19] MEDS: INSULIN SLIDING SCALE (NOVOLOG) 1 VIAL SQ SCH ×4 (06:10→21:20)
[2016-09-19 07:13] LABS: MCH 28.8 pg (25.7-33.7); MCHC 33.7 g/dl (32.0-36.0); MEAN CELL VOLUME 85.6 fl (80-96); MEAN PLT VOLUME 8.7 fl (7.5-11.1); PLATELET COUNT 278 K/MM3 (134-434); RDW 14.6 % (11.6-15.6); WHITE BLOOD COUNT 3.8 K/mm3 (4.0-10.0)
[2016-09-19 07:39] LABS: ALBUMIN 3.3 g/dl (3.4-5.0); ANION GAP 12 (8-16); CALCIUM 8.7 mg/dL (8.5-10.1); CO2 25 mmol/L (21-32); GLUCOSE,RANDOM 114 mg/dL (74-106)
[2016-09-19 07:41] LABS: ALK PHOS 46 U/L (45-117); BILIRUBIN,TOTAL 0.6 mg/dL (0.2-1.0); CREATININE 0.7 mg/dL (0.55-1.02); SGOT/AST 13 U/L (15-37); SGPT/ALT 23 U/L (12-78); TOT PROT 6.3 g/dl (6.4-8.2)
--- NOTE | 2016-09-19 09:38 | PN ---
Progress Note (short form) - Note Progress Note: NEUROSURGERY Some headaches. C/o reported syncopal episode last night but not today. Neck muscle spasm. No arm or leg weakness, numbness, tingling, or bowel/bladder dysfunction or Lhermitte's sign. PE: AF, VSS HEENT- NC/AT; Neck- flexion 25 degrees and extension 0 degrees; Cor- RR; Lungs- CTA B; Abd- benign, + BS; Ext- no sign of DVT A/A/Ox4 CN- intact; Motor- 5/5 B UE/LE; Sensation- intact LT/proprioception; DTR- hyporeflexic, no LTS WBC 3.5; Hgb 11 Brain MRI- no acute stroke Brain MRA- 4 mm R cavernous ICA and 3 mm priscilla-ophthalmic paraclinoid scaular aneurysm Head CT- no acute bleed C spine MRI- OPLL, central R C5-6 paracentral disc protrusion with mild cord impingement; broad-based central dis protrusion C6-7 with thecal sac impingement ; mild C4-5 disc bulge T spine MRI- T6-7, T7-8, T9-10 DDD/bulges without cord compression Asymptomatic small (<7 mm) R ICA aneurysm x2: annual surveilance MRA per neurology Cervical stenosis/HNP/OPLL with neck pain but no associated neurological deficits: pt to seek medical attention if new neurological deficit to consider surgery Pros and cons of treatment approaches discussed, and pt opts for conservative tx /observation only
--- NOTE | 2016-09-19 09:41 | PN ---
Progress Note (short form) - Note Progress Note: HPI: 56 year old woman with history of ovarian Ca, last chemotherapy 04/05, HTN , DM, who comes in with 2 days of complaints of chest pain and cough. This afternoon she complained of severe headache, and became lethargic, though it seems that the lethargy followed administration of hydromorphone. Prior to administration of hydromorphone, however, the patient had a brief period of unresponsiveness, but then spontaneously became responsive again. No convulsive activity noted. The patient no longer describes severe headache, typical of her migraine, with associated sense of room spinning, also typical of her migraine, with photophobia, phonophobia. Her headaches have been present since age 21, occur several times per year, are often precipitated by stress and changes in weather. She sometimes has sensory changes with right sided tingling and numbness. She now tells us of a history of partial complex seizures since childhood. She has not been on medication since age 19 or 20, and continues to have seizures 2- 3 times per year. She doesn't drive. She sometimes passes out and sometimes convulses (but not always). hx of seziures since she was 21; last seziure in 04/05 as per her, does not recall prior AEDs FU : prior to Dc yesterday-noted to have generalized seizure slight dizziness now, neurosurgery notes appreciated--agree asymptomatic MRI Cspine : C5/C6 and C6/C7 osteophytes with mild-mod cord compression on R, no cord signanl abnl --no clear neck pain , radiating pains, falls etc - Current Medication List Current Medications: Active Medications Al Hydroxide/Mg Hydroxide (Mylanta Oral Suspension -) 30 ml PO Q6H PRN PRN Reason: DYSPEPSIA Aspirin (Asa -) 81 mg PO DAILY [facility] Last Admin: 09/15/16 09:13 Dose: 81 mg Atorvastatin Calcium (Lipitor -) 10 mg PO HS AYANNA Sodium Chloride (Normal Saline -) 1,000 mls @ 125 mls/hr IV ASDIR [facility] Last Admin: 09/15/16 16:33 Dose: 125 mls/hr Ibuprofen (Motrin -) 600 mg PO Q8H PRN PRN Reason: PAIN Lisinopril (Prinivil) 5 mg PO DAILY [facility] Last Admin: 09/15/16 09:13 Dose: 5 mg Metformin HCl (Glucophage -) 500 mg PO AM [facility] Last Admin: 09/15/16 06:33 Dose: Not Given Pantoprazole Sodium (Protonix -) 40 mg PO DAILY [facility] Last Admin: 09/15/16 13:52 Dose: 40 mg - Objective Vital Signs: Vital Signs Temperature 97.8 F 09/19/16 06:00 Pulse Rate 78 09/19/16 06:00 Respiratory Rate 18 09/19/16 06:00 Blood Pressure 92/54 09/19/16 06:00 O2 Sat by Pulse Oximetry (%) 100 09/18/16 21:00 Neurological: Yes: Alert, Oriented, Cran Nerves II-XII Intact ...Motor Strength: WNL Labs: CBCD WBC 3.5 K/mm3 (4.0-10.0) L 09/17/16 06:00 RBC 3.77 M/mm3 (3.60-5.2) 09/17/16 06:00 Hgb 11.0 GM/dL (10.7-15.3) 09/17/16 06:00 Hct 32.6 % (32.4-45.2) 09/17/16 06:00 MCV 86.4 fl (80-96) 09/17/16 06:00 MCHC 33.8 g/dl (32.0-36.0) 09/17/16 06:00 RDW 13.9 % (11.6-15.6) 09/17/16 06:00 Plt Count 264 K/MM3 (134-434) 09/17/16 06:00 MPV 8.6 fl (7.5-11.1) 09/17/16 06:00 CMP Sodium 144 mmol/L (136-145) 09/17/16 06:00 Potassium 4.2 mmol/L (3.5-5.1) 09/17/16 06:00 Chloride 108 mmol/L (98-107) H 09/17/16 06:00 Carbon Dioxide 26 mmol/L (21-32) 09/17/16 06:00 Anion Gap 10 (8-16) 09/17/16 06:00 BUN 11 mg/dL (7-18) 09/17/16 06:00 Creatinine 0.7 mg/dL (0.55-1.02) 09/17/16 06:00 Creat Clearance w eGFR > 60 (>60) 09/17/16 06:00 Calcium 8.7 mg/dL (8.5-10.1) 09/17/16 06:00 Total Bilirubin 0.5 mg/dL (0.2-1.0) 09/17/16 06:00 AST 16 U/L (15-37) 09/17/16 06:00 ALT 25 U/L (12-78) 09/17/16 06:00 Alkaline Phosphatase 50 U/L (45-117) 09/17/16 06:00 Total Protein 5.9 g/dl (6.4-8.2) L 09/17/16 06:00 Albumin 3.1 g/dl (3.4-5.0) L 09/17/16 06:00 Problem List - Problems (1) Migraine with aura, not intractable Code(s): G43.109 - MIGRAINE WITH AURA, NOT INTRACTABLE, W/O STATUS MIGRAINOSUS Qualifiers: Status migrainosus presence: without status migrainosus Qualified Code(s): G43.109 - Migraine with aura, not intractable, without status migrainosus (2) Unruptured cerebral aneurysm Code(s): I67.1 - CEREBRAL ANEURYSM, NONRUPTURED (3) 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 Recommend Depakote Code(s): G40.009 - LOCAL-REL IDIO EPI W SEIZ OF LOC ONST,NOT NTRCT,W/O STAT EPI 4) Cervical spondylosis with radiographic evidence of cord compression Assessment/Plan 1) breakthrough seizure; continue with depkaote 500BID and add on KEPPRA 750BID PO 2) MRA findings noted-- needs repeat MRA 6 months, FU aneurysms. 3) MRI C spine C5-C6 cord impingement, though clinically stable cleared for Dc Dr Rodriguez [phone]
[2016-09-19] MEDS: levETIRAcetam 500 MG TABLET (FP) PO SCH ×2 (10:37→22:02)
[2016-09-19] MEDS: DEXTROSE 5%-0.45% SALINE 1,000 ML IV SCH (10:38)
[2016-09-19] MEDS: PANTOPRAZOLE SOD 40 MG SUSPENSION PACKET PO SCH (10:38)
[2016-09-19] MEDS: ASPIRIN 81 MG CHEWABLE TABLETS PO SCH (10:38)
[2016-09-19] MEDS: POLYETHYLENE GLYCOL 3350 119 GM BTL PO SCH ×2 (10:38→22:04)
[2016-09-19] MEDS: DIVALPROEX SODIUM 500 MG TABLET E.C. PO SCH ×2 (10:39→22:02)
[2016-09-19] MEDS: HYDROCORTISONE 0.5% TOPICAL CREAM 30 GM TUBE TP PRN (10:40)
--- NOTE | 2016-09-19 11:06 | RAPID ---
Physical Examination Vital Signs: Vital Signs Temperature 97.8 F 09/19/16 10:00 Pulse Rate 81 09/19/16 10:52 Respiratory Rate 18 09/19/16 10:52 Blood Pressure 116/80 09/19/16 10:52 O2 Sat by Pulse Oximetry (%) 100 09/18/16 21:00 Rapid response was called at 10:50am in [address] [place] [address]. Rapid response team reached there immediately. Patient was found sitting on a chair. She didn't have any shaking movements at that time. When the rapid response team arrived, the right upper extremity started shaking along with her head. She didn't have up rolling of eyes or frothing from the mouth. Patient was answering to questions while she had the shaking movement. She replied "No Dizziness, No Pain" while she was shaking. . She nodded her head when told that she will be alright. The shaking movement lasted for about 40 seconds, it stopped then she closed her eyes and resisted to eye opening. Patient was then transferred to her bed. As per the RN, patient was walking with the physical therapist, she suddenly started feeling weak and they put her in a chair and rapid response was called. Vitals: BP-110/66 mmHg , P- 89bpm , RR- 18 , Spo2- 95 in RA. Finger stick glucose was 125 mg/dl. Physical Examination General: Eyes closed, resisted to opening, non verbal, in no acute distress. HEENT: No JVD Chest: B/L Lungs clear, no added sounds CVS: Regular, S1, S2 Abdomen: Soft, non tender Neurology: Non verbal after the shaking movement, Bulk/Tone-Normal, Reflexes- Intact, 2 + peripheral pulses, No focal weakness, voluntary guarding of the upper extremities preventing from falling onto her face, No peripheral edema. 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 On Divalproex 500mg BID, Keppra 750 mg PO BID No medical treatment required at this time. Discussed with Dr. Vizcarra. Labs: CBC, BMP 09/19/16 05:35 09/19/16 05:35
[2016-09-19] MEDS ORDERED: OLANZapine 5 MG TABLET PO ONE (11:59)
--- NOTE | 2016-09-19 12:09 | PN ---
Progress Note (short form) - Note Progress Note: 24 hour events: Seizure like activity last night, started on Keppra, head CT with no evidence of acute pathology. Rapid response called this AM for collapse while walking with PT, followed by seizure like activity while sitting in the chair. Patient was talking during seizure like activity. Vital signs remained stable Upon evaluation about 1 hour after rapid response today, the patient was observed with her eyes closed thrashing her head back and forth. She yelled "tell them to stop", "I don't want to harm myself, I am a good person". She stated the voices are telling her to kill herself. She states there are two people who are talking to her, but she does not recognize their voices. All IV lines, telephone lines, any potentially harmful objects removed from the patient's room 1:[address] Gonzáles, Zyprexa 5mg stat followed by 5mg po bid Current Medications Generic Name Dose Route Start Last Admin Trade Name Freq PRN Reason Stop Dose Admin Al Hydroxide/Mg Hydroxide 30 ml 09/14/16 23:43 09/16/16 22:24 Mylanta Oral Suspension - PO 30 ml Q6H PRN Administration DYSPEPSIA Aspirin 81 mg 09/15/16 10:00 09/19/16 10:38 Asa - PO 81 mg DAILY AYANNA Administration Atorvastatin Calcium 10 mg 09/15/16 22:00 09/18/16 21:54 Lipitor - PO 10 mg HS AYANNA Administration Divalproex Sodium 500 mg 09/17/16 10:00 09/19/16 10:39 Depakote - PO 500 mg BID AYANNA Administration Docusate Sodium 300 mg 09/16/16 22:00 09/18/16 21:54 Colace - PO 300 mg HS AYANNA Administration Hydrocortisone 1 applic 09/16/16 02:00 09/19/16 10:40 Hytone 0.5% Cream - TP 1 applic Q6H PRN Administration itching Dextrose/Sodium Chloride 1,000 mls @ 75 mls/hr 09/17/16 06:30 09/19/16 10:38 D5-1/2ns - IV 75 mls/hr ASDIR AYANNA Administration Ibuprofen 600 mg 09/14/16 23:43 09/18/16 20:40 Motrin - PO 600 mg Q8H PRN Administration PAIN Insulin Aspart 1 vial 05/28/17 22:00 09/19/16 11:45 Novolog Vial Sliding Scale - SQ Not Given ACHS [facility] Protocol Levetiracetam 750 mg 09/19/16 10:00 09/19/16 10:37 Keppra - PO 750 mg BID AYANNA Administration Olanzapine 5 mg 09/19/16 11:59 Zyprexa - PO 09/19/16 12:00 ONCE ONE Pantoprazole Sodium 40 mg 09/19/16 10:00 09/19/16 10:38 Protonix Packets For Oral Suspension - PO 40 mg DAILY AYANNA Administration Polyethylene Glycol 17 gm 09/16/16 10:00 09/19/16 10:38 Miralax (For Daily Use) - PO 17 grams BID AYANNA Administration Objective: Vital Signs Period Temp Pulse Resp BP Sys/Leach Pulse Ox Last 24 Hr 97.6 F-98.4 F 72-90 16-19 90-144/54-90 100 Physical Exam: General: NAD, A&Ox3 Lungs: CTA bilaterally Heart: RRR, S1S2 Abd: Soft, non-tender, non-distended. Normoactive bowel sounds Ext: Warm, well-perfused, 2+ DP/PT bilaterally Neuro: CN 2-12 intact CBCD WBC 3.8 K/mm3 (4.0-10.0) L 09/19/16 05:35 RBC 3.75 M/mm3 (3.60-5.2) 09/19/16 05:35 Hgb 10.8 GM/dL (10.7-15.3) 09/19/16 05:35 Hct 32.1 % (32.4-45.2) L 09/19/16 05:35 MCV 85.6 fl (80-96) 09/19/16 05:35 MCHC 33.7 g/dl (32.0-36.0) 09/19/16 05:35 RDW 14.6 % (11.6-15.6) 09/19/16 05:35 Plt Count 278 K/MM3 (134-434) 09/19/16 05:35 MPV 8.7 fl (7.5-11.1) 09/19/16 05:35 CMP Sodium 142 mmol/L (136-145) 09/19/16 05:35 Potassium 4.0 mmol/L (3.5-5.1) 09/19/16 05:35 Chloride 105 mmol/L (98-107) 09/19/16 05:35 Carbon Dioxide 25 mmol/L (21-32) 09/19/16 05:35 Anion Gap 12 (8-16) 09/19/16 05:35 BUN 14 mg/dL (7-18) D 09/19/16 05:35 Creatinine 0.7 mg/dL (0.55-1.02) 09/19/16 05:35 Creat Clearance w eGFR > 60 (>60) 09/19/16 05:35 Random Glucose 114 mg/dL (74-106) H D 09/19/16 05:35 Calcium 8.7 mg/dL (8.5-10.1) 09/19/16 05:35 Total Bilirubin 0.6 mg/dL (0.2-1.0) 09/19/16 05:35 AST 13 U/L (15-37) L 09/19/16 05:35 ALT 23 U/L (12-78) 09/19/16 05:35 Alkaline Phosphatase 46 U/L (45-117) 09/19/16 05:35 Total Protein 6.3 g/dl (6.4-8.2) L 09/19/16 05:35 Albumin 3.3 g/dl (3.4-5.0) L 09/19/16 05:35 CARDIAC ENZYMES Creatine Kinase 129 IU/L (26-192) 09/13/16 15:38 Troponin I < 0.02 ng/ml (0.00-0.05) 09/14/16 21:00 Imaging: Chest X-ray: no acute disease Chest CTA: no evidence of pulmonary embolism or acute pathology within the chest Brain MRI: No definite intracranial abnormalitiy is identified. Moderate to marked bilateral ethmoid and mild bilateral maxillary sinus mucosal thickening Brain MRA: 4mm aneurysm involving the cavernous portion of the right internal carotid artery. 3mm aneurysm involving the right internal carotid artery Head CT: No intracranial hemorrhage Barium swallow: There is suggestion of a small hiatus hernia without evidence of a stricture or gross mucosal ulcerations Cervical spine MRI: moderate cervical cord compression at C5-C6 level with moderate narrowing of the right foramen impinging right C6 nerve root and mild to moderate at C6-C7 level Thoracic spine MRI: Mild disc bulge at T6-T7, T7-T8, T9-T10 level without cord or nerve root impingement. ECHO with normal LV size and function. 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 Becker, no need for steroids at this time - Appreciate neurosurgery consult 2) Cardiology: Chest pain - Trop x3 negative - EKG NSR - Chest CTA negative for pulmonary embolism 3) Neurology: Absence seizures, non-epileptic seizures - Witnessed talking during seizure like episode today - Continue Keppra - Continue Depakote 500mg po bid - Will need close outpatient follow-up Unruptured aneurysms - As above - Chronic finding - Close outpatient follow-up with neurology 4) Dysphagia in setting of ovarian cancer - No pain or difficulty swallowing 5) Endocrine: NIDDM - BGM ACHS - ISS ACHS 6) Oncology: Ovarian cancer - Follows with oncologist Dr. Ordonez at [facility] [place] ([phone]) every 3 months; last saw her June 2016 and was told everything was fine, next appointment in September 7) F/E/N: - Monitor electrolytes - Soft diet, diabetic, no utensils 8) Prophylaxis: - OOB ambulating - SCDs bilaterally - Will hold chemical anticoagulation until evaluation with ENT 9) Dispo: - Once condition improves CODE STATUS: FULL CODE Visit type - Emergency Visit Emergency Visit: Yes ED Registration Date: 09/18/16 Care time: The patient presented to the Emergency Department on the above date and was hospitalized for further evaluation of their emergent condition. - New Patient This patient is new to me today: No - Critical Care Critical Care patient: No
--- NOTE | 2016-09-19 17:41 | HOSP ---
Physical Examination Vital Signs: Vital Signs Temperature 99.2 F 09/19/16 15:34 Pulse Rate 95 H 09/19/16 15:34 Respiratory Rate 14 09/19/16 15:34 Blood Pressure 103/53 09/19/16 15:34 O2 Sat by Pulse Oximetry (%) 95 09/19/16 12:00 Findings/Remarks: Had a family meeting with Cirilo, the patient's other son, and Cirilo's grandmother. Events from today reviewed. All confirmed the patient has had episodes where she heard voices telling her to kill herself, others, or her sons since she was 18 years old. The episodes would last up to "days at a time" . According to Cirilo, the patient has never harmed herself or others. Cirilo stated that during these episodes she would collapse to the floor and thrash her head around and become unconscious. He states that since her cancer diagnosis the episodes of hearing voices have become more frequent. Cirilo states they have seen multiple doctors over the years, but no diagnosis has been made and the patient has not taken any psychiatric medications. Called and informed Dr. Gonzáles of the above information. Continue 1:1 and Zyprexa at this time. The patient is still stating the voices are telling her to kill herself. Acute psychosis may require psychiatric inpatient monitoring. Awaiting psych evaluation. Labs: CBC, BMP 09/19/16 05:35 09/19/16 05:35
--- NOTE | 2016-09-19 19:24 | CON.ENT ---
Consult Consult Specialty:: ENT Referred by:: Tamra Wallace NP Reason for Consultation:: pain on swallowing, dysphagia - History of Present Illness Chief Complaint: throat problem History of Present Illness: 56 yo F with numerous medidcal problems, had pain on swallowing Swallowing evaluation noted, modified barium swallow 09-18-16 normal had seizure, now recovering CT scan of head shows small aneurysms (unruptured) also frontal and ethmoid sinus disease - History Source History Provided By: Patient, Family Member (mother via diplomatic interpreter/translator), Medical Record Limitations to Obtaining History: Language Barrier - Past Medical History TOWEL SORTER: Yes: Migraine, Seizure, TIA, Other (aneurysm/stroke, ) Cardio/Vascular: Yes: HTN Gastrointestinal: Yes: Other (PAINFUL AND DIFFICULTY SWALLOWING) Endocrine: Yes: Diabetes Mellitus - Past Surgical History Past Surgical History: Yes: Hysterectomy - Alcohol/Substance Use Hx Alcohol Use: No - Smoking History Smoking history: Never smoked Have you smoked in the past 12 months: No Aproximately how many cigarettes per day: 0 - Social History Usual Living Arrangement: With Child ADL: Independent History of Recent Travel: No Home Medications - Allergies Allergies/Adverse Reactions: Allergies Allergy/AdvReac Type Severity Reaction Status Date / Time Penicillins Allergy Unknown Rash Verified 09/13/16 14:38 - Home Medications Home Medications: Ambulatory Orders Aspirin [Children's Aspirin] 81 mg PO DAILY #0 tab 09/18/16 Divalproex [Depakote -] 500 mg PO BID #120 tablet.ec 09/18/16 Docusate Sodium [Colace -] 300 mg PO HS tab 09/18/16 Lisinopril [Zestril] 2.5 mg PO DAILY #0 tab 09/18/16 Meclizine HCl [Antivert -] 12.5 mg PO TID PRN #90 tablet 09/18/16 Metformin HCl [Glucophage -] 500 mg PO DAILY #0 tab 09/18/16 Pravastatin Sodium [Pravachol -] 20 mg PO HS #0 tab 09/18/16 Physical Exam-ENT Vital Signs: Vital Signs Temperature 99.2 F 09/19/16 15:34 Pulse Rate 95 H 09/19/16 15:34 Respiratory Rate 14 09/19/16 15:34 Blood Pressure 103/53 09/19/16 15:34 O2 Sat by Pulse Oximetry (%) 95 09/19/16 12:00 Constitutional: Yes: No Distress, Calm Head: Yes: WNL Face: Yes: WNL Eyes: Yes: WNL Nose: Yes: Septum Deviated Nasal Passage: Yes: Other (edema) Oral/Pharynx: Yes: Gag Reflex, Other (flexible laryngoscopy: nasopyhyarynx clear , base of tongue retro, epiglottis normal endolarynx normal, no tumor, airway patent, vocal cords mobile symmetric, some mild arytenoid edema. full vocal cord closure on phonation) Outer Ear: Yes: WNL Ear Canal: Yes: WNL Tympanic Membrane: Yes: WNL Neck: Yes: WNL Respiratory: Yes: WNL (nasal endoscopy: mild turbinate edema, left middle turbinate polypoid, no polyps, pus or blood, right middle turbinate and meatus normal, left middle meatus narrow/edematous, sphenoethmoid recesses WNL, nasopharynx WNL, superior turbinates and meati not visualized) Imaging - Results Cat Scan: Report Reviewed, Image Reviewed Problem List - Problems (1) Dysphagia Assessment/Plan: pt had significant dysphagia however, per mother, she is improving, eating soft solids (fruit) easily without observable difficulty modified barium swallow normal Recommend: diet as tolerated Code(s): R13.10 - DYSPHAGIA, UNSPECIFIED Qualifiers: Dysphagia type: unspecified Qualified Code(s): R13.10 - Dysphagia, unspecified (2) Sinusitis chronic, ethmoidal Assessment/Plan: found on CT scan of head also some "debris" in frontal sinus no bony erosion, no air fluid levels per mother (via spanish medical interpreter) no significant prior history of nasal or sinus problems, no suspected history of nasal allergies. Recommend; nasal saline spray consider oral antibiotic (azithromycin as PCN allergic) Thank you for consultation, Esteban De La Cruz MD FACS Code(s): J32.2 - CHRONIC ETHMOIDAL SINUSITIS
[2016-09-19] MEDS ORDERED: PT OWN MED DRAWER 7, Y5N ONE (21:57)
[2016-09-19] MEDS: OLANZapine 5 MG TABLET PO SCH (22:02)
[2016-09-19] MEDS: ATORVASTATIN CA 10 MG TABLET (FP) PO SCH (22:02)
[2016-09-19] MEDS: DOCUSATE SODIUM 100 MG CAPSULE (FP) PO SCH (22:02)
[2016-09-20] MEDS: INSULIN SLIDING SCALE (NOVOLOG) 1 VIAL SQ SCH ×3 (06:05→16:17)
--- NOTE | 2016-09-20 08:01 | PN ---
Progress Note (short form) - Note Progress Note: NEUROSURGERY Neck pain with some muscle spasm. No arm or leg weakness, numbness, tingling, or bowel/bladder dysfunction or Lhermitte's sign 1:1 sitter for psych issues PE: AF, VSS HEENT- NC/AT; Neck- flexion 25 degrees and extension 0 degrees; Cor- RR; Lungs- CTA B; Abd- benign, + BS; Ext- no sign of DVT Still a little sleepy CN- intact; Motor- 5/5 B UE/LE; Sensation- intact LT/proprioception; DTR- hyporeflexic, no LTS Asymptomatic small (<7 mm) R ICA aneurysm x2: options of observation/serial MRA vs endovacsular tx discussed - will undergo annual surveilance MRA per neurology outpatient Cervical stenosis/HNP/OPLL with neck pain but no associated neurological deficits: pt understand it to be eventually a surgical condition at least at C5- 6 and C6-7; pt to seek medical attention if new neurological deficit to consider surgery Pros and cons of treatment approaches for the above conditions discussed Pt expresses understanding for her care/plan and needs to seek additional medical care if symptoms/signs change Psych input and f/u
--- NOTE | 2016-09-20 08:17 | PN ---
Progress Note (short form) - Note Progress Note: HPI: 56 year old woman with history of ovarian Ca, last chemotherapy 04/05, HTN , DM, who comes in with 2 days of complaints of chest pain and cough. This afternoon she complained of severe headache, and became lethargic, though it seems that the lethargy followed administration of hydromorphone. Prior to administration of hydromorphone, however, the patient had a brief period of unresponsiveness, but then spontaneously became responsive again. No convulsive activity noted. The patient no longer describes severe headache, typical of her migraine, with associated sense of room spinning, also typical of her migraine, with photophobia, phonophobia. Her headaches have been present since age 21, occur several times per year, are often precipitated by stress and changes in weather. She sometimes has sensory changes with right sided tingling and numbness. She now tells us of a history of partial complex seizures since childhood. She has not been on medication since age 19 or 20, and continues to have seizures 2- 3 times per year. She doesn't drive. She sometimes passes out and sometimes convulses (but not always). hx of seziures since she was 21; last seziure in 04/05 as per her, does not recall prior AEDs FU : another LOC, ? seziure event yesterday while ambulating on further HX with team endorsing voices, SI again complains of dizziness MRI Cspine : C5/C6 and C6/C7 osteophytes with mild-mod cord compression on R, no cord signanl abnl --no clear neck pain , radiating pains, falls etc - Current Medication List Current Medications: Active Medications Al Hydroxide/Mg Hydroxide (Mylanta Oral Suspension -) 30 ml PO Q6H PRN PRN Reason: DYSPEPSIA Aspirin (Asa -) 81 mg PO DAILY [facility] Last Admin: 09/15/16 09:13 Dose: 81 mg Atorvastatin Calcium (Lipitor -) 10 mg PO HS [facility] Sodium Chloride (Normal Saline -) 1,000 mls @ 125 mls/hr IV ASDIR [facility] Last Admin: 09/15/16 16:33 Dose: 125 mls/hr Ibuprofen (Motrin -) 600 mg PO Q8H PRN PRN Reason: PAIN Lisinopril (Prinivil) 5 mg PO DAILY [facility] Last Admin: 09/15/16 09:13 Dose: 5 mg Metformin HCl (Glucophage -) 500 mg PO AM [facility] Last Admin: 09/15/16 06:33 Dose: Not Given Pantoprazole Sodium (Protonix -) 40 mg PO DAILY [facility] Last Admin: 09/15/16 13:52 Dose: 40 mg - Objective Vital Signs: Vital Signs Temperature 97.9 F 09/20/16 06:00 Pulse Rate 77 09/20/16 06:00 Respiratory Rate 18 09/20/16 06:00 Blood Pressure 105/59 09/20/16 06:00 O2 Sat by Pulse Oximetry (%) 98 09/19/16 21:00 Neurological: Yes: Alert, Oriented, Cran Nerves II-XII Intact ...Motor Strength: WNL Labs: CBCD WBC 3.5 K/mm3 (4.0-10.0) L 09/17/16 06:00 RBC 3.77 M/mm3 (3.60-5.2) 09/17/16 06:00 Hgb 11.0 GM/dL (10.7-15.3) 09/17/16 06:00 Hct 32.6 % (32.4-45.2) 09/17/16 06:00 MCV 86.4 fl (80-96) 09/17/16 06:00 MCHC 33.8 g/dl (32.0-36.0) 09/17/16 06:00 RDW 13.9 % (11.6-15.6) 09/17/16 06:00 Plt Count 264 K/MM3 (134-434) 09/17/16 06:00 MPV 8.6 fl (7.5-11.1) 09/17/16 06:00 CMP Sodium 144 mmol/L (136-145) 09/17/16 06:00 Potassium 4.2 mmol/L (3.5-5.1) 09/17/16 06:00 Chloride 108 mmol/L (98-107) H 09/17/16 06:00 Carbon Dioxide 26 mmol/L (21-32) 09/17/16 06:00 Anion Gap 10 (8-16) 09/17/16 06:00 BUN 11 mg/dL (7-18) 09/17/16 06:00 Creatinine 0.7 mg/dL (0.55-1.02) 09/17/16 06:00 Creat Clearance w eGFR > 60 (>60) 09/17/16 06:00 Calcium 8.7 mg/dL (8.5-10.1) 09/17/16 06:00 Total Bilirubin 0.5 mg/dL (0.2-1.0) 09/17/16 06:00 AST 16 U/L (15-37) 09/17/16 06:00 ALT 25 U/L (12-78) 09/17/16 06:00 Alkaline Phosphatase 50 U/L (45-117) 09/17/16 06:00 Total Protein 5.9 g/dl (6.4-8.2) L 09/17/16 06:00 Albumin 3.1 g/dl (3.4-5.0) L 09/17/16 06:00 Problem List - Problems (1) Migraine with aura, not intractable Code(s): G43.109 - MIGRAINE WITH AURA, NOT INTRACTABLE, W/O STATUS MIGRAINOSUS Qualifiers: Status migrainosus presence: without status migrainosus Qualified Code(s): G43.109 - Migraine with aura, not intractable, without status migrainosus (2) Unruptured cerebral aneurysm Code(s): I67.1 - CEREBRAL ANEURYSM, NONRUPTURED MRA findings noted-- needs repeat MRA 6 months, FU aneurysms. 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 4) Cervical spondylosis with radiographic evidence of cord compression MRI C spine C5-C6 cord impingement, though clinically stable/ asymptomatic 5) Psychosis-- agree with PSYCHIATRY consult Dr Rodriguez [phone]
--- NOTE | 2016-09-20 08:24 | PN ---
Progress Note (short form) - Note Progress Note: Subjective: The patient was seen and examined at the bedside she is reporting the voices are telling her to "harm everyone around her" and that they are telling her to hurt me. She reports feeling sleepy and dizzy Current Medications Generic Name Dose Route Start Last Admin Trade Name Freq PRN Reason Stop Dose Admin Al Hydroxide/Mg Hydroxide 30 ml 09/14/16 23:43 09/16/16 22:24 Mylanta Oral Suspension - PO 30 ml Q6H PRN Administration DYSPEPSIA Aspirin 81 mg 09/15/16 10:00 09/19/16 10:38 Asa - PO 81 mg DAILY [facility] Administration Atorvastatin Calcium 10 mg 09/15/16 22:00 09/19/16 22:02 Lipitor - PO 10 mg HS A[facility]ANNA Administration Divalproex Sodium 500 mg 09/17/16 10:00 09/19/16 22:02 Depakote - PO 500 mg BID [facility]NA Administration Docusate Sodium 300 mg 09/16/16 22:00 09/19/16 22:02 Colace - PO 300 mg HS A[facility]ANNA Administration Hydrocortisone 1 applic 09/16/16 02:00 09/19/16 10:40 Hytone 0.5% Cream - TP 1 applic Q6H PRN Administration itching Ibuprofen 600 mg 09/14/16 23:43 09/18/16 20:40 Motrin - PO 600 mg Q8H PRN Administration PAIN Insulin Aspart 1 vial 09/15/16 22:00 09/20/16 06:05 Novolog Vial Sliding Scale - SQ Not Given ACHS AYANNA Protocol Levetiracetam 750 mg 09/19/16 10:00 09/19/16 22:02 Keppra - PO 750 mg BID A[facility]NA Administration Olanzapine 5 mg 09/19/16 22:00 09/19/16 22:02 Zyprexa - PO 5 mg BID [facility]NA Administration Pantoprazole Sodium 40 mg 09/19/16 10:00 09/19/16 10:38 Protonix Packets For Oral Suspension - PO 40 mg DAILY [facility] Administration Polyethylene Glycol 17 gm 09/16/16 10:00 09/19/16 22:04 Miralax (For Daily Use) - PO 17 grams BID [facility] Administration Objective: Vital Signs Period Temp Pulse Resp BP Sys/Leach Pulse Ox Last 24 Hr 97.8 F-99.2 F 77-95 14-19 100-116/53-80 95-100 Physical Exam: General: NAD, A&Ox3 Lungs: CTA bilaterally Heart: RRR, S1S2 Abd: Soft, non-tender, non-distended. Normoactive bowel sounds Ext: Warm, well-perfused, 2+ DP/PT bilaterally Neuro: CN 2-12 intact CBCD WBC 3.8 K/mm3 (4.0-10.0) L 09/19/16 05:35 RBC 3.75 M/mm3 (3.60-5.2) 09/19/16 05:35 Hgb 10.8 GM/dL (10.7-15.3) 09/19/16 05:35 Hct 32.1 % (32.4-45.2) L 09/19/16 05:35 MCV 85.6 fl (80-96) 09/19/16 05:35 MCHC 33.7 g/dl (32.0-36.0) 09/19/16 05:35 RDW 14.6 % (11.6-15.6) 09/19/16 05:35 Plt Count 278 K/MM3 (134-434) 09/19/16 05:35 MPV 8.7 fl (7.5-11.1) 09/19/16 05:35 CMP Sodium 142 mmol/L (136-145) 09/19/16 05:35 Potassium 4.0 mmol/L (3.5-5.1) 09/19/16 05:35 Chloride 105 mmol/L (98-107) 09/19/16 05:35 Carbon Dioxide 25 mmol/L (21-32) 09/19/16 05:35 Anion Gap 12 (8-16) 09/19/16 05:35 BUN 14 mg/dL (7-18) D 09/19/16 05:35 Creatinine 0.7 mg/dL (0.55-1.02) 09/19/16 05:35 Creat Clearance w eGFR > 60 (>60) 09/19/16 05:35 Random Glucose 114 mg/dL (74-106) H D 09/19/16 05:35 Calcium 8.7 mg/dL (8.5-10.1) 09/19/16 05:35 Total Bilirubin 0.6 mg/dL (0.2-1.0) 09/19/16 05:35 AST 13 U/L (15-37) L 09/19/16 05:35 ALT 23 U/L (12-78) 09/19/16 05:35 Alkaline Phosphatase 46 U/L (45-117) 09/19/16 05:35 Total Protein 6.3 g/dl (6.4-8.2) L 09/19/16 05:35 Albumin 3.3 g/dl (3.4-5.0) L 09/19/16 05:35 CARDIAC ENZYMES Creatine Kinase 129 IU/L (26-192) 09/13/16 15:38 Troponin I < 0.02 ng/ml (0.00-0.05) 09/14/16 21:00 Imaging: Chest X-ray: no acute disease Chest CTA: no evidence of pulmonary embolism or acute pathology within the chest Brain MRI: No definite intracranial abnormalitiy is identified. Moderate to marked bilateral ethmoid and mild bilateral maxillary sinus mucosal thickening Brain MRA: 4mm aneurysm involving the cavernous portion of the right internal carotid artery. 3mm aneurysm involving the right internal carotid artery Head CT: No intracranial hemorrhage Barium swallow: There is suggestion of a small hiatus hernia without evidence of a stricture or gross mucosal ulcerations Cervical spine MRI: moderate cervical cord compression at C5-C6 level with moderate narrowing of the right foramen impinging right C6 nerve root and mild to moderate at C6-C7 level Thoracic spine MRI: Mild disc bulge at T6-T7, T7-T8, T9-T10 level without cord or nerve root impingement. ECHO with normal LV size and function. 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 Since cancer diagnosis, she has been hearing the voices more frequently - 1:1 observation - Zyprexa 5mg po bid - F/u psych consult 1) Neurosurg: C5-C6 moderate cord compression - No focal deficits at this time, no evidence of cauda equina - Per Dr. Becker, no need for steroids at this time - Appreciate neurosurgery consult 2) Cardiology: Chest pain - Trop x3 negative - EKG NSR - Chest CTA negative for pulmonary embolism 3) Neurology: Absence seizures, non-epileptic seizures - Witnessed talking during seizure like episode yesterday - Continue Keppra - Continue Depakote 500mg po bid - Will need close outpatient follow-up Unruptured aneurysms - As above - Chronic finding - Close outpatient follow-up with neurology 4) Dysphagia in setting of ovarian cancer - No pain or difficulty swallowing 5) Endocrine: NIDDM - BGM ACHS - ISS ACHS 6) Oncology: Ovarian cancer - [place] [facility] [phone][place] 3 [place]; last saw her June 2016 and was told everything was fine, next appointment in September 7) F/E/N: - Monitor electrolytes - Soft diet, diabetic, no utensils 8) Prophylaxis: - OOB ambulating - SCDs bilaterally - Will hold chemical anticoagulation until evaluation with ENT 9) Dispo: - Will likely require inpatient psych for acute psychotic episode - Medically cleared for psychiatric placement CODE STATUS: FULL CODE Visit type - Emergency Visit Emergency Visit: Yes ED Registration Date: 09/18/16 Care time: The patient presented to the Emergency Department on the above date and was hospitalized for further evaluation of their emergent condition. - New Patient This patient is new to me today: No - Critical Care Critical Care patient: No
[2016-09-20] MEDS ORDERED: PT OWN MED DRAWER 7, Y5N ONE ×3 (09:24→23:30)
[2016-09-20] MEDS: OLANZapine 5 MG TABLET PO SCH (09:37)
[2016-09-20] MEDS: PANTOPRAZOLE SOD 40 MG SUSPENSION PACKET PO SCH (09:37)
[2016-09-20] MEDS: levETIRAcetam 500 MG TABLET (FP) PO SCH ×2 (09:37→23:31)
[2016-09-20] MEDS: ASPIRIN 81 MG CHEWABLE TABLETS PO SCH (09:37)
[2016-09-20] MEDS: DIVALPROEX SODIUM 500 MG TABLET E.C. PO SCH ×2 (09:37→23:32)
[2016-09-20] MEDS: POLYETHYLENE GLYCOL 3350 119 GM BTL PO SCH ×2 (09:40→23:37)
[2016-09-20] MEDS ORDERED: OLANZapine 5 MG TABLET PO SCH (10:00)
--- NOTE | 2016-09-20 12:16 | CON.PSY ---
Psychiatry Consult Chief Complaint: I am hearing voices telling me to kill myself, hurt othres and my self. Symptoms: reports: Delusions, Hallucinations, Paranoia - Previous Psychiatric Treatment Outpatient: More than 6 mos ago Inpatient: One prior admission - Previous Substance Abuse Treatment Outpatient: More than 6 mos ago Inpatient: None - Reason for Previous Treatment Reason for Previous Treatment: Psychotic Episode - Current Medications Current Medications: Active Medications Al Hydroxide/Mg Hydroxide (Mylanta Oral Suspension -) 30 ml PO Q6H PRN PRN Reason: DYSPEPSIA Last Admin: 09/16/16 22:24 Dose: 30 ml Aripiprazole (Abilify) [address] [facility] Aspirin (Asa -) [address] [facility] Last Admin: 09/20/16 09:37 Dose: 81 mg Atorvastatin Calcium (Lipitor -) [address] [facility] Last Admin: 09/19/16 22:02 Dose: 10 mg Divalproex Sodium (Depakote -) [address] [facility] Last Admin: 09/20/16 09:37 Dose: 500 mg Docusate Sodium (Colace -) [address] [facility] Last Admin: 09/19/16 22:02 Dose: 300 mg Hydrocortisone (Hytone 0.5% Cream -) 1 applic TP Q6H PRN PRN Reason: itching Last Admin: 09/19/16 10:40 Dose: 1 applic Ibuprofen (Motrin -) 600 mg PO Q8H PRN PRN Reason: PAIN Last Admin: 09/18/16 20:40 Dose: 600 mg Insulin Aspart (Novolog Vial Sliding Scale -) [address] [facility] PRN Reason: Protocol Last Admin: 09/20/16 06:05 Dose: Not Given Levetiracetam (Keppra -) [address] [facility] Last Admin: 09/20/16 09:37 Dose: 750 mg Pantoprazole Sodium (Protonix Packets For Oral Suspension -) [address] [facility] Last Admin: 09/20/16 09:37 Dose: 40 mg Polyethylene Glycol (Miralax (For Daily Use) -) [address] [facility] Last Admin: 09/20/16 09:40 Dose: 17 grams - Allergies Allergies: Allergies Allergy/AdvReac Type Severity Reaction Status Date / Time Penicillins Allergy Unknown Rash Verified 09/13/16 14:38 - Current Living Status Usual Living Arrangement: With Child - Current Mental Status Evaluation Appearance: Disheveled Attitude: Suspicious - Affect Affect: Constrictive Appropriateness: Appropriate to Content - Mood Mood: Euthymic, Irritable - Speech/Language Expressive: Coherent - Psychomotor Activity Psychomotor Activity: Slowed - Thought Process Thought Process: Loosening of Associations - Thought Content Hallucinations: Present Type: Auditory Delusions: Absent - Self Perception Self Perception: Depersonalization - Cognition Attention: Alert Orientation: Time Memory, Immediate Recall: Intact Memory, Short Term: 2/3 Memory, Remote with Promptin/3 - Concentration Serial Sevens Intact: No Simple Calculations Intact: No - Abstraction Proverb Interpretation: Impaired Judgement: Moderately Impaired - Insight Insight: Impaired - Impulse Control Impulse Control: Moderately Impaired - Suicidal Ideation Suicidal Ideation: Yes - Homicidal Ideation Homicidal Ideation: Yes Assessment/Plan 1) D/c Zyprexa 2) Start ABILIFY 5MG PO BID. 3) iN pATIENT pSYCH hOSPITALIZATION .
--- NOTE | 2016-09-20 14:54 | HOSP ---
Physical Examination Vital Signs: Vital Signs Temperature 98.5 F 09/20/16 14:43 Pulse Rate 83 09/20/16 14:43 Respiratory Rate 16 09/20/16 14:43 Blood Pressure 111/60 09/20/16 14:43 O2 Sat by Pulse Oximetry (%) 98 09/20/16 09:00 Findings/Remarks: Long discussion with son, Cirilo, he is aware of transfer to an inpatient psychiatric facility. He reports when he spoke to his mom yesterday she said her name was Yary Gale (Cirilo does not recognize this name). Today she is oriented to self ( calls herself Hyun, her family refers to her as Hyun as well). Awaiting psych inpatient transfer. Labs: CBC, BMP 09/19/16 05:35 09/19/16 05:35
[2016-09-20] MEDS: ATORVASTATIN CA 10 MG TABLET (FP) PO SCH (23:31)
[2016-09-20] MEDS: DOCUSATE SODIUM 100 MG CAPSULE (FP) PO SCH (23:31)
[2016-09-20] MEDS: ARIPiprazole 5 MG TABLET (FP) PO SCH (23:33)
[2016-09-21] MEDS ORDERED: PT OWN MED DRAWER 7, Y5N ONE ×2 (09:18→22:17)
[2016-09-21] MEDS: ASPIRIN 81 MG CHEWABLE TABLETS PO SCH (09:30)
[2016-09-21] MEDS: PANTOPRAZOLE SOD 40 MG SUSPENSION PACKET PO SCH (09:30)
[2016-09-21] MEDS: levETIRAcetam 500 MG TABLET (FP) PO SCH ×2 (09:30→22:23)
[2016-09-21] MEDS: ARIPiprazole 5 MG TABLET (FP) PO SCH (09:31)
[2016-09-21] MEDS: DIVALPROEX SODIUM 500 MG TABLET E.C. PO SCH ×2 (09:31→22:24)
[2016-09-21] MEDS: POLYETHYLENE GLYCOL 3350 119 GM BTL PO SCH ×2 (09:32→22:24)
--- NOTE | 2016-09-21 09:59 | PN ---
Physical Exam: SUBJECTIVE: Patient seen and examined. She says she is Lizet today, she is complaining of boredom. She denies voices telling her to harm her this morning. States her dizziness is chronic, today it is mild. OBJECTIVE: Vital Signs Period Temp Pulse Resp BP Sys/Leach Pulse Ox Last 24 Hr 97.7 F-98.9 F 74-84 16-20 104-123/59-68 94 PE Neuro: alert, awake, cn 2-12intact Pulm: CTAB CV: s1 s2 rrr no mrg Abd: s nt nd +bs Ext: warm, no le edema, full ROM Laboratory Results - last 24 hr 09/20/16 12:05 POC Glucometer 88 Active Medications Generic Name Dose Route Start Last Admin Trade Name Freq PRN Reason Stop Dose Admin Al Hydroxide/Mg Hydroxide 30 ml 09/14/16 23:43 09/16/16 22:24 Mylanta Oral Suspension - PO 30 ml Q6H PRN Administration DYSPEPSIA Aripiprazole 5 mg 09/20/16 22:00 09/21/16 09:31 Abilify PO 5 mg BID AYANNA Administration Aspirin 81 mg 09/15/16 10:00 09/21/16 09:30 Asa - PO 81 mg DAILY [facility]NA Administration Atorvastatin Calcium 10 mg 09/15/16 22:00 09/20/16 23:31 Lipitor - PO 10 mg HS A[facility]ANNA Administration Divalproex Sodium 500 mg 09/17/16 10:00 09/21/16 09:31 Depakote - PO 500 mg BID A[facility]ANNA Administration Docusate Sodium 300 mg 09/16/16 22:00 09/20/16 23:31 Colace - PO 300 mg HS A[facility]NA Administration Hydrocortisone 1 applic 09/16/16 02:00 09/19/16 10:40 Hytone 0.5% Cream - TP 1 applic Q6H PRN Administration itching Ibuprofen 600 mg 09/14/16 23:43 09/18/16 20:40 Motrin - PO 600 mg Q8H PRN Administration PAIN Levetiracetam 750 mg 09/19/16 10:00 09/21/16 09:30 Keppra - PO 750 mg BID A[facility]ANNA Administration Pantoprazole Sodium 40 mg 09/19/16 10:00 09/21/16 09:30 Protonix Packets For Oral Suspension - PO 40 mg DAILY [facility] Administration Polyethylene Glycol 17 gm 09/16/16 10:00 09/21/16 09:32 Miralax (For Daily Use) - PO 17 grams BID A[facility]ANNA Administration Imaging: Chest X-ray: no acute disease Chest CTA: no evidence of pulmonary embolism or acute pathology within the chest Brain MRI: No definite intracranial abnormalitiy is identified. Moderate to marked bilateral ethmoid and mild bilateral maxillary sinus mucosal thickening Brain MRA: 4mm aneurysm involving the cavernous portion of the right internal carotid artery. 3mm aneurysm involving the right internal carotid artery Head CT: No intracranial hemorrhage Barium swallow: There is suggestion of a small hiatus hernia without evidence of a stricture or gross mucosal ulcerations Cervical spine MRI: moderate cervical cord compression at C5-C6 level with moderate narrowing of the right foramen impinging right C6 nerve root and mild to moderate at C6-C7 level Thoracic spine MRI: Mild disc bulge at T6-T7, T7-T8, T9-T10 level without cord or nerve root impingement. 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 Patient verbalized hearing voices in her head - Per family, hx of undiagnosed schizophrenia since she was 18. Since cancer diagnosis, she has been hearing the voices more frequently - Voices telling her to harm/kill herself and others yesterday - 1:1 observation - Stop zyprexa - Started abilify 5mg BID - For inpatient pysch placement, awaiting acceptance 2. C5-C6 moderate cord compression - No focal deficits at this time, no evidence of cauda equina - Per neurosurgery, no need for steroids at this time 3. Absence seizures, non-epileptic seizures - Witnessed talking during seizure during hospitalization, most recent yesterday - Continue Keppra - Continue Depakote 500mg po bid - Will need close outpatient follow-up as keppra usp could cause psychosis 4. Unruptured aneurysms - As above on brain MRA - Chronic finding - Close outpatient follow-up with neurology 5. Chest pain - Resolved - ECHO with normal LV size and function. No regional wall motion abnormalities, trace to mild MR, moderate TR - r/o [place] serial trops negative - Above imaging noted 6. Dysphagia in setting of ovarian cancer - No pain or difficulty swallowing - Soft diet 7. Ovarian cancer - [place] [facility] [phone] 3 [place]; last saw her June 2016 and was told everything was fine, next appointment in September 8. Sinusitis chronic, ethmoidal - Nasal spray - Consider azithro if infectious signs present 9. Dispo - Medically cleared for inpatient psychiatric placement CODE STATUS: FULL CODE Visit type - Emergency Visit Emergency Visit: Yes ED Registration Date: 09/18/16 Care time: The patient presented to the Emergency Department on the above date and was hospitalized for further evaluation of their emergent condition. - New Patient This patient is new to me today: Yes Date on this admission: 09/21/16 - Critical Care Critical Care patient: No - Discharge Referral Referred to [facility] Med P.C.: No
--- NOTE | 2016-09-21 11:13 | DS ---
Physical Exam: Subjective: Patient seen and examined. She says she is Lizet today, she is complaining of boredom. She denies voices telling her to harm her this morning. States her dizziness is chronic, today it is mild. 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 Patient stated her symptoms started approximately 2 days ago with a dry intermittent cough and chills at home. In the course of 2 days, patient's symptoms have progressively worsen as she started to feel short of breath and reports associated symptoms of pleuritic sharp chest pain 8/10 in severity that do not allow her to eat or drink and she experiences severe pain. Son, at bedside, reports that he was recently sick, approximately 2 week ago with the common cold. Imaging: Chest X-ray: no acute disease Chest CTA: no evidence of pulmonary embolism or acute pathology within the chest Brain MRI: No definite intracranial abnormality is identified. Moderate to marked bilateral ethmoid and mild bilateral maxillary sinus mucosal thickening Brain MRA: 4mm aneurysm involving the cavernous portion of the right internal carotid artery. 3mm aneurysm involving the right internal carotid artery Head CT: No intracranial hemorrhage Barium swallow: There is suggestion of a small hiatus hernia without evidence of a stricture or gross mucosal ulcerations Cervical spine MRI: moderate cervical cord compression at C5-C6 level with moderate narrowing of the right foramen impinging right C6 nerve root and mild to moderate at C6-C7 level Thoracic spine MRI: Mild disc bulge at T6-T7, T7-T8, T9-T10 level without cord or nerve root impingement. 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 Plan: 1. Patient verbalized hearing voices in her head - Per family, hx of undiagnosed schizophrenia since she was 18. Since cancer diagnosis, she has been hearing the voices more frequently - Voices telling her to harm/kill herself and others yesterday - 1:1 observation - Stop Zyprexa - Started Abilify 5mg BID - For inpatient pysch placement, accepted at [facility] 2. C5-C6 moderate cord compression - No focal deficits at this time, no evidence of cauda equina - Per neurosurgery, no need for steroids at this time 3. Absence seizures, non-epileptic seizures - Multiple seizures during hospitalization - Witnessed talking during seizure during hospitalization, most recent yesterday 09/19 - Continue Keppra 750mg BID - Continue Depakote 500mg po bid - Will need close outpatient follow-up as keppra longterm could cause psychosis 4. Unruptured aneurysms - As above on brain MRA - Chronic finding - Close outpatient follow-up with neurology 5. Chest pain - Resolved - ECHO with normal LV size and function. No regional wall motion abnormalities, trace to mild MR, moderate TR - r/o MD serial trops negative - Above imaging noted 6. Dysphagia in setting of ovarian cancer - No pain or difficulty swallowing - Soft diet - If it persists, upper endoscopy would be the next step in evaluation 7. Ovarian cancer - Follows with oncologist Dr. Ordonez at [facility] [place] ([phone]) every 3 months; last saw her June 2016 and was told everything was fine, next appointment in September 26. Sinusitis chronic, ethmoidal - Nasal spray - Consider azithro if infectious signs present 9. Dispo - Medically cleared for inpatient psychiatric placement to [facility] - Report given to Dr. Lemus, medical chart transferred with patient CODE STATUS: FULL CODE Condition: Improved - Instructions Diet, Activity, Other Instructions: Please return to the ED with new, persistent, or worsening symptoms. Please follow-up with providers as indicated. Please follow-up with your neurologist, Dr. Rodriguez within 1 week for further management of your seizures and to schedule a repeat MRI brain to evaluate your aneurysms in 6 months. Please follow-up with Dr. Becker (neurosurgery) within 1-2 weeks for further management of your C5-C5 spinal cord impingement. Please follow-up with your oncologist as scheduled on October 11, 2016. Please provide your oncologist with all imaging reports you had during your hospital stay. Referrals: Sebastián Connors DO [Staff Physician] - (Please follow-up with GI for reevalation of pain when swallowing if it returns) Eamon Rodriguez DO [Staff Physician] - 1 Week Ian Becker MD [Staff Physician] - 1 Week Eleazar Ken [Primary Care Provider] - 1 Week Philip Duque MD [Staff Physician] - (Please follow-up with Dr. Duque ( thoracic surgery), for an evaluation of your hiatal hernia as an outpatient ) Disposition: TRANSFER ACUTE CARE/OTHER HOSP - Home Medications Comprehensive Discharge Medication List: Ambulatory Orders Aspirin [Children's Aspirin] 81 mg PO DAILY #0 tab 09/18/16 Divalproex [Depakote -] 500 mg PO BID #120 tablet.ec 09/18/16 Docusate Sodium [Colace -] 300 mg PO HS tab 09/18/16 Meclizine HCl [Antivert -] 12.5 mg PO TID PRN #90 tablet 09/18/16 Metformin HCl [Glucophage -] 500 mg PO DAILY #0 tab 09/18/16 Pravastatin Sodium [Pravachol -] 20 mg PO HS #0 tab 09/18/16 Aripiprazole [Abilify -] 5 mg PO BID tablet 09/20/16 Levetiracetam [Keppra -] 750 mg PO BID tablet 09/20/16 This patient is new to me today: Yes Date on this admission: 09/21/16 Emergency Visit: Yes ED Registration Date: 09/18/16 Care time: The patient presented to the Emergency Department on the above date and was hospitalized for further evaluation of their emergent condition. Critical Care patient: No - Discharge Referral Referred to [facility] Med [facility].C.: No
[2016-09-21] MEDS: DOCUSATE SODIUM 100 MG CAPSULE (FP) PO SCH (22:25)
[2016-09-21] MEDS: ATORVASTATIN CA 10 MG TABLET (FP) PO SCH (22:25)
[2016-09-22 09:13] LABS: URINE APPEARANCE CLEAR; URINE BILIRUBIN NEGATIVE (NEGATIVE); URINE BLOOD NEGATIVE (NEGATIVE); URINE COLOR YELLOW; URINE GLUCOSE (UA) NEGATIVE (NEGATIVE); URINE KETONE 1+ (NEGATIVE); URINE LEUK ESTERASE NEGATIVE (NEGATIVE); URINE NITRITE NEGATIVE (NEGATIVE); URINE PROTEIN NEGATIVE (NEGATIVE); URINE UROBILINOGEN 2.0 E.U/dl E.U./dl (0.2-1.0)
[2016-09-22] MEDS ORDERED: PT OWN MED DRAWER 7, Y5N ONE ×2 (09:25→22:13)
[2016-09-22] MEDS: POLYETHYLENE GLYCOL 3350 119 GM BTL PO SCH ×2 (09:59→22:35)
[2016-09-22] MEDS: ASPIRIN 81 MG CHEWABLE TABLETS PO SCH (09:59)
[2016-09-22] MEDS: DIVALPROEX SODIUM 500 MG TABLET E.C. PO SCH ×2 (09:59→22:34)
[2016-09-22] MEDS: levETIRAcetam 500 MG TABLET (FP) PO SCH ×2 (09:59→22:34)
[2016-09-22] MEDS: PANTOPRAZOLE SOD 40 MG SUSPENSION PACKET PO SCH (09:59)
[2016-09-22] MEDS: ARIPiprazole 5 MG TABLET (FP) PO SCH (10:00)
--- NOTE | 2016-09-22 12:45 | PN ---
Physical Exam: SUBJECTIVE: Patient seen and examined. Ms. Staton appears more present today and calm, not teary. She wants to go home, i told her this was not possible, and she did agree she wants to get better. No voices today, states her name is Lizet Staton. OBJECTIVE: Vital Signs Period Temp Pulse Resp BP Sys/Leach Pulse Ox Last 24 Hr 97.7 F-98.8 F 80-92 18-20 99-118/58-67 94-97 PE Neuro: alert, awake, cn 2-12intact Pulm: CTAB CV: s1 s2 rrr no mrg Abd: s nt nd +bs Ext: warm, no le edema, full ROM Laboratory Results - last 24 hr 09/22/16 09/22/16 06:20 06:30 TSH 1.84 Urine Color Yellow Urine Appearance Clear Urine pH 6.0 Urine Protein Negative Urine Glucose (UA) Negative Urine Ketones 1+ H Urine Blood Negative Urine Nitrite Negative Urine Bilirubin Negative Urine Urobilinogen 2.0 e.u/dl H Ur Leukocyte Esterase Negative Active Medications Generic Name Dose Route Start Last Admin Trade Name Griselda PRN Reason Stop Dose Admin Al Hydroxide/Mg Hydroxide 30 ml 09/14/16 23:43 09/16/16 22:24 Mylanta Oral Suspension - PO 30 ml Q6H PRN Administration DYSPEPSIA Aripiprazole 5 mg 09/22/16 10:00 09/22/16 10:00 Abilify PO 5 mg DAILY AYANNA Administration Aspirin 81 mg 09/15/16 10:00 09/22/16 09:59 Asa - PO 81 mg DAILY AYANNA Administration Atorvastatin Calcium 10 mg 09/15/16 22:00 09/21/16 22:25 Lipitor - PO 10 mg HS AYANNA Administration Divalproex Sodium 500 mg 09/17/16 10:00 09/22/16 09:59 Depakote - PO 500 mg BID AYANNA Administration Docusate Sodium 300 mg 09/16/16 22:00 09/21/16 22:25 Colace - PO 300 mg HS AYANNA Administration Hydrocortisone 1 applic 09/16/16 02:00 09/19/16 10:40 Hytone 0.5% Cream - TP 1 applic Q6H PRN Administration itching Ibuprofen 600 mg 09/14/16 23:43 09/18/16 20:40 Motrin - PO 600 mg Q8H PRN Administration PAIN Levetiracetam 750 mg 09/19/16 10:00 09/22/16 09:59 Keppra - PO 750 mg BID AYANNA Administration Pantoprazole Sodium 40 mg 09/19/16 10:00 09/22/16 09:59 Protonix Packets For Oral Suspension - PO 40 mg DAILY AYANNA Administration Polyethylene Glycol 17 gm 09/16/16 10:00 09/22/16 09:59 Miralax (For Daily Use) - PO 17 grams BID AYANNA Administration Assessment: 56 year old female with PMHx of HTN, NIDDM, ovarian cancer s/p CARMEL 2003 (last chemo 03/2016), 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 Plan: 1. Patient verbalized hearing voices in her head - Per family, hx of undiagnosed schizophrenia since she was 18. Since cancer diagnosis, she has been hearing the voices more frequently - Of note: Cirilo (son) states during absence seizure episodes, episodes are similar pt collapses to the floor and thrash her head around and becomes unconscious, this is consistent with each rapid response during hospitalization. - Voices have told her to harm/kill herself and others - 1:1 observation - Abilify 5mg daily - For inpatient pysch placement, awaiting placement 2. C5-C6 moderate cord compression - No focal deficits at this time, no evidence of cauda equina - Per neurosurgery, no need for steroids at this time 3. Absence seizures, non-epileptic seizures - Multiple seizures during hospitalization - Witnessed talking during seizure during hospitalization, most recent yesterday 09/19 - Continue Keppra 750mg BID - Continue Depakote 500mg po bid - Will need close outpatient follow-up as keppra half-way could cause psychosis 4. Unruptured aneurysms - As above on brain MRA - Chronic finding - Close outpatient follow-up with neurology 5. Chest pain - Resolved - ECHO with normal LV size and function. No regional wall motion abnormalities, trace to mild MR, moderate TR - r/o [place] serial trops negative - Above imaging noted 6. Dysphagia in setting of ovarian cancer - No pain or difficulty swallowing - Soft diet - If it persists, upper endoscopy would be the next step in evaluation 7. Ovarian cancer - Follows with oncologist Dr. Ordonez at [facility] [place] ([phone]) every 3 months; last saw her June 2016 and was told everything was fine, next appointment in September 26. Sinusitis chronic, ethmoidal - Nasal spray - Consider azithro if infectious signs present 9. [facility] requests - UA 09/21: Negative - Tsh: Wnl Visit type - Emergency Visit Emergency Visit: Yes ED Registration Date: 09/18/16 Care time: The patient presented to the Emergency Department on the above date and was hospitalized for further evaluation of their emergent condition. - New Patient This patient is new to me today: No - Critical Care Critical Care patient: No
[2016-09-22] MEDS: DOCUSATE SODIUM 100 MG CAPSULE (FP) PO SCH (22:34)
[2016-09-22] MEDS: ATORVASTATIN CA 10 MG TABLET (FP) PO SCH (22:34)
[2016-09-22] MEDS: IBUPROFEN 600 MG TABLET (FP) PO PRN (22:35)
--- NOTE | 2016-09-23 09:30 | PN ---
Physical Exam: SUBJECTIVE: Patient seen and examined. She is feeling tired. She is conversational with the sitter. No voices heard today or overnight. OBJECTIVE: Vital Signs Period Temp Pulse Resp BP Sys/Leach Pulse Ox Last 24 Hr 97.8 F-98.7 F 69-101 16-20 94-129/56-79 95-97 PE Neuro: alert, awake, cn 2-12intact Pulm: CTAB CV: s1 s2 rrr no mrg Abd: s nt nd +bs Ext: warm, no le edema, full ROM Laboratory Results - last 24 hr 09/22/16 06:30 Ur Specific [place] 1.020 Active Medications Generic Name Dose Route Start Last Admin Trade Name Freq PRN Reason Stop Dose Admin Al Hydroxide/Mg Hydroxide 30 ml 09/14/16 23:43 09/16/16 22:24 Mylanta Oral Suspension - PO 30 ml Q6H PRN Administration DYSPEPSIA Aripiprazole 5 mg 09/22/16 10:00 09/22/16 10:00 Abilify PO 5 mg DAILY AYANNA Administration Aspirin 81 mg 09/15/16 10:00 09/22/16 09:59 Asa - PO 81 mg DAILY AYANNA Administration Atorvastatin Calcium 10 mg 09/15/16 22:00 09/22/16 22:34 Lipitor - PO 10 mg HS AYANNA Administration Divalproex Sodium 500 mg 09/17/16 10:00 09/22/16 22:34 Depakote - PO 500 mg BID AYANNA Administration Docusate Sodium 300 mg 09/16/16 22:00 09/22/16 22:34 Colace - PO 300 mg HS AYANNA Administration Hydrocortisone 1 applic 09/16/16 02:00 09/19/16 10:40 Hytone 0.5% Cream - TP 1 applic Q6H PRN Administration itching Ibuprofen 600 mg 09/14/16 23:43 09/22/16 22:35 Motrin - PO 600 mg Q8H PRN Administration PAIN Levetiracetam 750 mg 09/19/16 10:00 09/22/16 22:34 Keppra - PO 750 mg BID AYANNA Administration Pantoprazole Sodium 40 mg 09/19/16 10:00 09/22/16 09:59 Protonix Packets For Oral Suspension - PO 40 mg DAILY AYANNA Administration Polyethylene Glycol 17 gm 09/16/16 10:00 09/22/16 22:35 Miralax (For Daily Use) - PO 17 grams BID AYANNA Administration Assessment: 56 year old female with PMHx of HTN, NIDDM, ovarian cancer s/p CARMEL 2004 (last chemo 03/2016), 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 Plan: 1. Patient verbalized hearing voices in her head - Per family, hx of undiagnosed schizophrenia since she was 18. Since cancer diagnosis, she has been hearing the voices more frequently - Of note: Cirilo (son) states during absence seizure episodes, episodes are similar pt collapses to the floor and thrash her head around and becomes unconscious, this is consistent with each rapid response during hospitalization. - Voices have told her to harm/kill herself and others - 1:1 observation - Abilify 5mg daily - For inpatient pysch placement, awaiting placement 2. C5-C6 moderate cord compression - No focal deficits at this time, no evidence of cauda equina - Per neurosurgery, no need for steroids at this time 3. 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 Unruptured aneurysms - As above on brain MRA - Chronic finding - Close outpatient follow-up with neurology 5. Chest pain - Resolved - ECHO with normal LV size and function. No regional wall motion abnormalities, trace to mild MR, moderate TR - r/o [place] serial trops negative - Above imaging noted 6. Dysphagia in setting of ovarian cancer - No pain or difficulty swallowing - Soft diet - If it persists, upper endoscopy would be the next step in evaluation 7. Ovarian cancer - Follows with oncologist Dr. Ordonez at [facility] [place] ([phone]) every 3 months; last saw her June 2016 and was told everything was fine, next appointment in September 8. Sinusitis chronic, ethmoidal - Nasal spray - Consider azithro if infectious signs present 9. Psych facility requests - 09/21: Negative - Tsh: Wnl Dispo: - [facility] has denied pt case - Calls being made for placement elsewhere Visit type - Emergency Visit Emergency Visit: Yes ED Registration Date: 09/18/16 Care time: The patient presented to the Emergency Department on the above date and was hospitalized for further evaluation of their emergent condition. - New Patient This patient is new to me today: No - Critical Care Critical Care patient: No
--- NOTE | 2016-09-23 09:57 | PN ---
Physical Exam: SUBJECTIVE: Patient seen and examined OBJECTIVE: Vital Signs Period Temp Pulse Resp BP Sys/Leach Pulse Ox Last 24 Hr 97.8 F-98.7 F 69-101 16-20 94-129/56-79 95-97 PE Neuro: alert, awake, cn 2-12intact Pulm: CTAB CV: s1 s2 rrr no mrg Abd: s nt nd +bs Ext: warm, no le edema, full ROM Laboratory Results - last 24 hr 09/22/16 06:30 Ur Specific [place] 1.020 Active Medications Generic Name Dose Route Start Last Admin Trade Name Freq PRN Reason Stop Dose Admin Al Hydroxide/Mg Hydroxide 30 ml 09/14/16 23:43 09/16/16 22:24 Mylanta Oral Suspension - PO 30 ml Q6H PRN Administration DYSPEPSIA Aripiprazole 5 mg 09/22/16 10:00 09/22/16 10:00 Abilify PO 5 mg DAILY AYANNA Administration Aspirin 81 mg 09/15/16 10:00 09/22/16 09:59 Asa - PO 81 mg DAILY AYANNA Administration Atorvastatin Calcium 10 mg 09/15/16 22:00 09/22/16 22:34 Lipitor - PO 10 mg HS AYANNA Administration Divalproex Sodium 500 mg 09/17/16 10:00 09/22/16 22:34 Depakote - PO 500 mg BID AYANNA Administration Docusate Sodium 300 mg 09/16/16 22:00 09/22/16 22:34 Colace - PO 300 mg HS AYANNA Administration Hydrocortisone 1 applic 09/16/16 02:00 09/19/16 10:40 Hytone 0.5% Cream - TP 1 applic Q6H PRN Administration itching Levetiracetam 750 mg 09/19/16 10:00 09/22/16 22:34 Keppra - PO 750 mg BID AYANNA Administration Pantoprazole Sodium 40 mg 09/19/16 10:00 09/22/16 09:59 Protonix Packets For Oral Suspension - PO 40 mg DAILY AYANNA Administration Polyethylene Glycol 17 gm 09/16/16 10:00 09/22/16 22:35 Miralax (For Daily Use) - PO 17 grams BID AYANNA Administration Imaging: Chest CTA: no evidence of pulmonary embolism or acute pathology within the chest Brain MRI: No definite intracranial abnormality is identified. Moderate to marked bilateral ethmoid and mild bilateral maxillary sinus mucosal thickening Brain MRA: 4mm aneurysm involving the cavernous portion of the right internal carotid artery. 3mm aneurysm involving the right internal carotid artery Barium swallow: There is suggestion of a small hiatus hernia without evidence of a stricture or gross mucosal ulcerations Cervical spine MRI: moderate cervical cord compression at C5-C6 level with moderate narrowing of the right foramen impinging right C6 nerve root and mild to moderate at C6-C7 level Thoracic spine MRI: Mild disc bulge at T6-T7, T7-T8, T9-T10 level without cord or nerve root impingement. 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 Plan: 1. Patient verbalized hearing voices in her head - Per family, hx of undiagnosed schizophrenia since she was 18. Since cancer diagnosis, she has been hearing the voices more frequently - Of note: Cirilo (son) states during absence seizure episodes, episodes are similar pt collapses to the floor and thrash her head around and becomes unconscious, this is consistent with each rapid response during hospitalization. - Voices have told her to harm/kill herself and others - 1:1 observation - Abilify 5mg daily - For inpatient pysch placement, awaiting placement 2. 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 Chest pain - Resolved - ECHO with normal LV size and function. No regional wall motion abnormalities, trace to mild MR, moderate TR - r/o [place] serial trops negative - Above imaging noted 4. Dysphagia in setting of ovarian cancer - No pain or difficulty swallowing - Soft diet - If it persists, upper endoscopy would be the next step in evaluation 5. Ovarian cancer - Follows with oncologist Dr. Ordonez at [facility] [place] ([phone]) every 3 months; last saw her June 2016 and was told everything was fine, next appointment in September 6. Chronic C5-C6 moderate cord compression - Incidental finding - No focal deficits at this time, no evidence of cauda equina, no steroids needed 7. Chronic Unruptured aneurysms - Chronic incidental finding - As above on brain MRA - Yearly monitoring
[2016-09-23] MEDS ORDERED: PT OWN MED DRAWER 7, Y5N ONE (10:53)
[2016-09-23] MEDS: POLYETHYLENE GLYCOL 3350 119 GM BTL PO SCH (11:16)
[2016-09-23] MEDS: levETIRAcetam 500 MG TABLET (FP) PO SCH (11:17)
[2016-09-23] MEDS: ASPIRIN 81 MG CHEWABLE TABLETS PO SCH (11:17)
[2016-09-23] MEDS: PANTOPRAZOLE SOD 40 MG SUSPENSION PACKET PO SCH (11:17)
[2016-09-23] MEDS: DIVALPROEX SODIUM 500 MG TABLET E.C. PO SCH (11:18)
[2016-09-23] MEDS: ARIPiprazole 5 MG TABLET (FP) PO SCH (11:18)
[2016-09-23 11:23] VITALS: BP 120/69; PULSE 79; TEMP 98.4
[2016-09-23 12:32] LABS: MCH 28.9 pg (25.7-33.7); MCHC 33.6 g/dl (32.0-36.0); MEAN CELL VOLUME 86.2 fl (80-96); PLATELET COUNT 265 K/MM3 (134-434)
[2016-09-23 12:53] LABS: CALCIUM 9.3 mg/dL (8.5-10.1); COCKROFT - GAULT 107.287; CREATININE 0.7 mg/dL (0.55-1.02)
--- NOTE | 2016-09-23 15:12 | DS ---
Physical Exam: SUBJECTIVE: Patient seen and examined OBJECTIVE: Vital Signs Period Temp Pulse Resp BP Sys/Leach Pulse Ox Last 24 Hr 97.8 F-98.6 F 69-88 16-20 94-129/56-77 95 PHYSICAL EXAM GENERAL: The patient is awake, alert, and fully oriented, in no acute distress. HEAD: Normal with no signs of trauma. EYES: PERRL, extraocular movements intact, sclera anicteric, conjunctiva clear. ENT: Ears normal, nares patent, oropharynx clear without exudates, moist mucous membranes. NECK: Trachea midline, full range of motion, supple. LUNGS: Breath sounds equal, clear to auscultation bilaterally, no wheezes, no crackles, no accessory muscle use. HEART: Regular rate and rhythm, S1, S2 without murmur, rub or gallop. ABDOMEN: Soft, nontender, nondistended, normoactive bowel sounds, no guarding, no rebound, no hepatosplenomegaly, no masses. EXTREMITIES: 2+ pulses, warm, well-perfused, no edema. NEUROLOGICAL: Cranial nerves II through XII grossly intact. Normal speech, gait not observed. PSYCH: Normal mood, normal affect. SKIN: Warm, dry, normal turgor, no rashes or lesions noted. 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 Patient stated her symptoms started approximately 2 days ago with a dry intermittent cough and chills at home. In the course of 2 days, patient's symptoms have progressively worsen as she started to feel short of breath and reports associated symptoms of pleuritic sharp chest pain 8/10 in severity that do not allow her to eat or drink and she experiences severe pain. Son, at bedside, reports that he was recently sick, approximately 2 week ago with the common cold. Imaging: Chest CTA: no evidence of pulmonary embolism or acute pathology within the chest Brain MRI: No definite intracranial abnormality is identified. Moderate to marked bilateral ethmoid and mild bilateral maxillary sinus mucosal thickening Brain MRA: 4mm aneurysm involving the cavernous portion of the right internal carotid artery. 3mm aneurysm involving the right internal carotid artery Head CT: No intracranial hemorrhage Barium swallow: There is suggestion of a small hiatus hernia without evidence of a stricture or gross mucosal ulcerations Cervical spine MRI: moderate cervical cord compression at C5-C6 level with moderate narrowing of the right foramen impinging right C6 nerve root and mild to moderate at C6-C7 level Thoracic spine MRI: Mild disc bulge at T6-T7, T7-T8, T9-T10 level without cord or nerve root impingement. 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 Plan: 1. Patient verbalized hearing voices in her head - Per family, hx of undiagnosed schizophrenia since she was 18. Since cancer diagnosis, she has been hearing the voices more frequently - Of note: Cirilo (son) states during absence seizure episodes, episodes are similar pt collapses to the floor and thrash her head around and becomes unconscious, this is consistent with each rapid response during hospitalization. - Voices have told her to harm/kill herself and others - 1:1 observation - Abilify 5mg daily - For inpatient pysch placement at [facility], 2 pc sent 2. Absence seizures, non-epileptic seizures - Continue Keppra 750mg BID - Continue Depakote 500mg po bid - Will need close outpatient follow-up as keppra senior living could cause psychosis 3. Chest pain - Resolved - ECHO with normal LV size and function. No regional wall motion abnormalities, trace to mild MR, moderate TR - r/o PA serial trops negative - Above imaging noted 4. Dysphagia in setting of ovarian cancer - No pain or difficulty swallowing - Soft diet - If it persists, upper endoscopy would be the next step in evaluation 5. Ovarian cancer - Follows with oncologist Dr. Ordonez at [facility] ([phone]) every 3 months; last saw her June 2016 and was told everything was fine, next appointment in September 6. Chronic C5-C6 moderate cord compression - Incidental finding - No focal deficits at this time, no evidence of cauda equina, no steroids needed 7. Chronic Unruptured aneurysms - Chronic incidental finding - As above on brain MRA - Yearly monitoring 8. Chronic sinusitis, ethmoidal - Nasal spray - Consider azithro if infectious signs present Dispo: - For inpatient psych at [place] [address] evaluation center - Information transmitted to [facility] [phone] Condition: Fair - Instructions Diet, Activity, Other Instructions: Please return to the ED with new, persistent, or worsening symptoms. Please follow-up with providers as indicated. Please follow-up with your neurologist, Dr. Rodriguez within 1 week for further management of your seizures and to schedule a repeat MRI brain to evaluate your aneurysms in 6 months. Please follow-up with Dr. Becker (neurosurgery) within 1-2 weeks for further management of your C5-C5 spinal cord impingement. Please follow-up with your oncologist as scheduled on October 11, 2016. Please provide your oncologist with all imaging reports you had during your hospital stay. Referrals: Sebastián Connors DO [Staff Physician] - (Please follow-up with GI for reevalation of pain when swallowing if it returns) Eamon Rodriguez DO [Staff Physician] - 1 Week Ian Becker MD [Staff Physician] - 1 Week Eleazar Ken [Primary Care Provider] - 1 Week Philip Duque MD [Staff Physician] - (Please follow-up with Dr. Duque ( thoracic surgery), for an evaluation of your hiatal hernia as an outpatient ) Disposition: TRANSFER ACUTE CARE/OTHER HOSP - Home Medications Comprehensive Discharge Medication List: Ambulatory Orders Aspirin [Children's Aspirin] 81 mg PO DAILY #0 tab 09/18/16 Divalproex [Depakote -] 500 mg PO BID #120 tablet.ec 09/18/16 Docusate Sodium [Colace -] 300 mg PO HS tab 09/18/16 Meclizine HCl [Antivert -] 12.5 mg PO TID PRN #90 tablet 09/18/16 Metformin HCl [Glucophage -] 500 mg PO DAILY #0 tab 09/18/16 Pravastatin Sodium [Pravachol -] 20 mg PO HS #0 tab 09/18/16 Aripiprazole [Abilify -] 5 mg PO BID tablet 09/20/16 Levetiracetam [Keppra -] 750 mg PO BID tablet 09/20/16 This patient is new to me today: Yes Date on this admission: 09/23/16 Emergency Visit: Yes ED Registration Date: 09/18/16 Care time: The patient presented to the Emergency Department on the above date and was hospitalized for further evaluation of their emergent condition. Critical Care patient: Yes Total Critical Care Time (in minutes): 35 Critical Care Statement: The care of this patient involved high complexity decision making to prevent further life threatening deterioration of the patient 's condition and/or to evalute & treat vital organ system(s) failure or risk of failure. - Discharge Referral Referred to [facility] No
== END 2016-09-23 16:45 | disposition short-term general hospital (02) | DRG 885 ==
LOC: JER 14:31 → JERBED 22:54 → UNDOADMOB 09-14 00:50 → J6S 09-14 05:56 → JICU 09-14 19:13 → J4S 09-15 00:50 → OBSVTOIN 09-18 11:17
PROVIDERS: ADMIT Internal Medicine; ATTEND Nurse Practitioner Acute Care
PROC: 4A00X4Z Measurement of Central Nervous Electrical Activity, External Approach (ICD-10-PCS; principal; 2016-09-17)
PROC: 0CJS8ZZ Inspection of Larynx, Via Natural or Artificial Opening Endoscopic (ICD-10-PCS; 2016-09-19)
DX: F20.9 Schizophrenia, unspecified (principal); G40.009 Localization-related (focal) (partial) idiopathic epilepsy and epileptic syndromes with seizures of localized onset, not intractable, without status epilepticus; C56.9 Malignant neoplasm of unspecified ovary; R44.0 Auditory hallucinations; F28 Other psychotic disorder not due to a substance or known physiological condition; E11.9 Type 2 diabetes mellitus without complications; I10 Essential (primary) hypertension; R07.9 Chest pain, unspecified; R21 Rash and other nonspecific skin eruption; D72.1 Eosinophilia; E78.5 Hyperlipidemia, unspecified; G43.109 Migraine with aura, not intractable, without status migrainosus; I67.1 Cerebral aneurysm, nonruptured; R41.89 Other symptoms and signs involving cognitive functions and awareness; R13.10 Dysphagia, unspecified; M94.0 Chondrocostal junction syndrome [Tietze]; M47.22 Other spondylosis with radiculopathy, cervical region; J32.2 Chronic ethmoidal sinusitis; F22 Delusional disorders
CPT/HCPCS: 36415; 70450-TC; 70546-TC; 70553-TC; 71010-TC; 71275-TC; 72156-TC; 72157-TC; 74220-TC; 74230-TC; 80048; 80053; 80076; 80164; 81003; 82150; 82550; 83690; 83735; 83880; 84100; 84146; 84443; 84484; 85025; 85027; 85610; 92611-GN; 93005; 93010; 93306-TC; 95816; 97116-GP; 97163; 99283-25; A9576; G0378

== ENCOUNTER 2017-06-21 15:41 | Emergency (ER) | payer OTHER ==
--- NOTE | 2017-06-21 15:48 | PDOC ---
Attending Attestation - HPI HPI: 06/21/17 16:45 The patient is a 57 year old female with a significant PMH of aneurysm, ovarian CA (s/p hysterectomy and chemo), migraines, HTN, and diabetes who presents to the emergency department via EMS with a headache beginning approximately a few hours ago. Allergies: Penicillins Neuro: Appt. with Dr. Dobbs on 07/17 - Medical Decision Making 06/21/17 16:10 Dr. Jaramillo spoke with Dr. Dobbs at 16:00, who requested we speak with Neuro behavioral intervention specialist. 06/21/17 16:10 Dr. Jaramillo spoke with Dr. Gonzales regarding this patient. <Karthik Frey - Last Filed: 06/21/17 16:45> - Resident Resident Name: Pauline Jaramillo - ED Attending Attestation I have performed the following: I have examined & evaluated the patient, The case was reviewed & discussed with the resident, I agree w/resident's findings & plan, Exceptions are as noted - Physicial Exam PE: GENERAL: Awake, alert, and fully oriented. Appears uncomfortable. HEAD: No signs of trauma EYES: PERRLA, EOMI, sclera anicteric, conjunctiva clear ENT: Auricles normal inspection, hearing grossly normal, nares patent, oropharynx clear without exudates. Moist mucosa NECK: Normal ROM, supple, no lymphadenopathy, JVD, or masses LUNGS: Breath sounds equal, clear to auscultation bilaterally. No wheezes, and no crackles HEART: Regular rate and rhythm, normal S1 and S2, no murmurs, rubs or gallops ABDOMEN: Soft, nontender, normoactive bowel sounds. No guarding, no rebound. No masses EXTREMITIES: Normal range of motion, no edema. No clubbing or cyanosis. No cords, erythema, or tenderness NEUROLOGICAL: Cranial nerves II through XII grossly intact. Normal speech. Motor and sensation intact. SKIN: Warm, Dry, normal turgor, no rashes or lesions noted. - Medical Decision Making Pt with history of small aneurysm presents with abrupt onset severe headache. Denies weakness, numbness. Will treat with pain medication and obtain CT, then discuss with neurology. Poss CTA if initial CTH is negative. <Francisca Vallejo - Last Filed: 06/22/17 14:10> NIH Stroke Scale - Last Known Well Date/Time & Onset Date Last Known Well: 06/21/17 - Initial Evaluation Level of consciousness: Alert Ask patient the month and their age: Answers both correctly Ask patient to open & close eyes; make fist and let go: Obeys both correctly Best gaze (horizontal eye movement): Normal Visual field testing: No visual field loss Facial paresis (Show teeth/raise eyebrows/close eyes tight): Normal symmetrical movement Motor Function: Left Arm: Normal Motor Function: Right Arm: Normal (extends arm 90 (or 45) degrees for 10 seconds without drift Motor Function: Left Leg: Normal (extends leg 30 degrees for 5 seconds without drift) Motor Function: Right Leg: Normal (extends leg 30 degrees for 5 seconds without drift) Limb Ataxia: No ataxia Sensory(Use pinprick test arms,legs,trunk,face/side to side): Normal Best language (Describe picture, name items, read sentences): No Aphasia Dysarthria (read several words): Normal articulation Extinction and Inattention: No abnormality - Total Score NIH Stroke Scale Score: 0 <Francisca Vallejo - Last Filed: 06/22/17 14:10>
--- NOTE | 2017-06-21 15:50 | PDOC ---
History of Present Illness - General Stated Complaint: FAINTED Time Seen by Provider: 06/21/17 15:47 History Source: Patient, Family - History of Present Illness Initial Comments: 06/21/17 15:50 57 y.o. female PMH of aneursym, Ovarian CA (s/p hysterectomy), seizure, HTN, NIDDM, vertigo and migraines who was BIBEMS following c/o severe headache. As per patient's family @ bedside, patient was c/o her usual migraine this morning when she suddenly closed her eyes and appeared to sons as if she was going to faint, however patient did not syncopize, and remained upright with stiff LE. Patient is now c/o of headache c/w her prior migraine pain however her usual migraine pain is in the front of her head and her current pain is in the front and back of her head. Patient's family notes that she was evaluated for her migraines in [place] earlier this week and that they were told patient had an aneursym that had increased in size from a previous evaluation 2-3 years prior. Patient denies any visual changes, mental status changes, photophobia or lightheadedness/vertigo. Patient denies any chest pain, shortness of breath, abdominal pain, nausea/ vomiting, diarrhea/constipation. Allergy: Pencillin Surgery: Hysterectomy Social: denies cigarettes, denies alcohol, denies recreational drugs Past History - Past Medical History Allergies/Adverse Reactions: Allergies Allergy/AdvReac Type Severity Reaction Status Date / Time Penicillins Allergy Unknown Rash Verified 06/21/17 15:50 Home Medications: Ambulatory Orders Aspirin [Children's Aspirin] 81 mg PO DAILY #0 tab 09/18/16 Divalproex [Depakote -] 500 mg PO BID #120 tablet.ec 09/18/16 Docusate Sodium [Colace -] 300 mg PO HS tab 09/18/16 Meclizine HCl [Antivert -] 12.5 mg PO TID PRN #90 tablet 09/18/16 Pravastatin Sodium [Pravachol -] 20 mg PO HS #0 tab 09/18/16 metFORMIN HCL [Glucophage -] 500 mg PO DAILY #0 tab 09/18/16 Aripiprazole [Abilify -] 5 mg PO BID tablet 09/20/16 levETIRAcetam [Keppra -] 750 mg PO BID tablet 09/20/16 Asthma: No Cancer: Yes (ovarian 09/2015 on chemo now) Diabetes: Yes (NIDDM) HTN: Yes - Immunization History Immunization Up to Date: Yes - Suicide/Smoking/Psychosocial Hx Smoking Status: No Smoking History: Never smoked Have you smoked in the past 12 months: No Number of Cigarettes Smoked Daily: 0 Hx Alcohol Use: No Drug/Substance Use Hx: No Substance Use Type: None Hx Substance Use Treatment: No Review of Systems - Review of Systems Constitutional: No: Chills, Fever HEENTM: No: Recent change in vision, Hearing Loss Respiratory: No: Cough, Shortness of Breath Cardiac (ROS): No: Chest Pain, Lightheadedness, Palpitations, Syncope ABD/GI: No: Constipated, Diarrhea, Nausea, Vomiting : No: Burning, Dysuria Neurological: Yes: Headache *Physical Exam - Physical Exam General Appearance: Yes: Nourished, Appropriately Dressed HEENT: positive: EOMI, BR[place]GET[place]. negative: Scleral Icterus (R), Scleral Icterus (L) , TM Bulging, TM Dull, TM Erythema Neck: positive: Trachea midline, Supple Respiratory/Chest: positive: Lungs Clear Cardiovascular: positive: S1, S2 Gastrointestinal/Abdominal: positive: Normal Bowel Sounds, Soft Extremity: positive: Normal Capillary Refill, Normal Inspection Integumentary: positive: Normal Color, Dry, Warm Neurologic: positive: end polisher II-XII NML intact, Fully Oriented, Alert. negative: Facial Droop, Numbness, Finger to Nose, Confused, Disoriented ED Treatment Course - LABORATORY CBC & Chemistry Diagram: 06/21/17 16:00 06/21/17 16:00 Medical Decision Making - Medical Decision Making 06/21/17 18:10 57 y.o. female with h/o aneursym presents with severe headache. Head CT negative for acute bleed. CTA pending for evaluation of aneursym, as per EMR, 4 mm in 2014. Pain control w/Decadron. Case d/w both Dr. Dobbs (had consulted on patient when patient was evaluated at [facility] for migraines earlier this week) and Dr. Gonzales -- agree with symptomatic migraine treatment if CTA shows no change in aneursym. CTA showed no aneursym. Radiology irrigationist designer contacted - showed 4 mm aneursym c/w prior CTA. Patient signed out to Dr. Stewart (Resident) and Dr. Rivas (Attending) . At time of signout patient counseled on CTA, CT results -- patient family en route for discharge. Spoke with patient's family this morning (07/23) - concern for no MD contact, spoke with PA after shift change. Explained to family that MD - MD signout at resident and attending level and all PA care was under physician. *DC/Admit/Observation/Transfer Diagnosis at time of Disposition: Migraines - Discharge Dispostion Disposition: HOME Condition at time of disposition: Good Admit: No - Referrals Referrals: Barron Gonzales MD [Staff Physician] - Facundo Dobbs MD [Staff Physician] - - Patient Instructions Printed Discharge Instructions: DI for Migraine Additional Instructions: You were evaluated today for migraine. Your cat scan and CT angiogram showed no concerning findings. Please make a follow-up appointment with Dr. Gonzales, neurology, on Friday. Return to the Emergency Department for any new/worsening/ concerning symptoms. - Post Discharge Activity
[2017-06-21 15:58] VITALS: TEMP 97.4; BMI 29.0
[2017-06-21] MEDS ORDERED: morphine CARPU-JECT 2 MG/1 ML DISP.SYRIN IVPUSH ONE (16:00)
[2017-06-21] MEDS ORDERED: SODIUM CHLORIDE 1,000 ML IV SCH (16:00)
[2017-06-21] MEDS ORDERED: MORPHINE SULFATE 10 MG/1 ML *VIAL ONE (16:15)
[2017-06-21 16:20] LABS: HEMOGLOBIN 12.3 GM/dL (10.7-15.3); MCH 29.7 pg (25.7-33.7)
[2017-06-21 16:25] LABS: EOS % 3.9 % (0-4.5); HEMATOCRIT 36.1 % (32.4-45.2); LYMPH % 39.2 % (8-40); MCHC 34.1 g/dl (32.0-36.0); MEAN CELL VOLUME 87.2 fl (80-96); MONO % 8.7 % (3.8-10.2); NEUT % 47.2 % (42.8-82.8); RBC 4.14 M/mm3 (3.60-5.2); RDW 14.5 % (11.6-15.6); WHITE BLOOD COUNT 6.4 K/mm3 (4.0-10.0)
[2017-06-21] MEDS ORDERED: DEXAMETHASONE SOD PHOSPHATE 10 MG/1 ML VIAL IVPUSH ONE (16:25)
[2017-06-21 16:51] LABS: PLATELET ESTIMATE ADEQUATE
[2017-06-21 16:54] LABS: ALBUMIN 3.7 g/dl (3.4-5.0); ANION GAP 8 (8-16); BILIRUBIN,TOTAL 0.4 mg/dL (0.2-1.0); BLOOD UREA NITROGEN 19 mg/dL (7-18); CALCIUM 8.9 mg/dL (8.5-10.1); CHLORIDE 104 mmol/L (98-107); CHOLESTEROL 216 mg/dL (50-200); CO2 27 mmol/L (21-32); CREATININE 0.9 mg/dL (0.55-1.02); GLUCOSE,RANDOM 81 mg/dL (74-106); HDL CHOLESTEROL 43 mg/dL (40-60); LDL CHOLESTEROL (ONLY SJRH) 143 mg/dL (5-100); POTASSIUM 4.3 mmol/L (3.5-5.1); SGOT/AST 14 U/L (15-37); SGPT/ALT 23 U/L (12-78); SODIUM 139 mmol/L (136-145); TOT PROT 7.2 g/dl (6.4-8.2); TRIGLYCERIDES 219 mg/dL (35-160)
[2017-06-21 16:55] LABS: ALK PHOS 64 U/L (45-117)
[2017-06-21] MEDS ORDERED: SODIUM CHLORIDE 1,000 ML IV STA (17:06)
[2017-06-21 17:16] LABS: URINE APPEARANCE CLEAR; URINE BILIRUBIN NEGATIVE (NEGATIVE); URINE BLOOD NEGATIVE (NEGATIVE); URINE COLOR STRAW; URINE GLUCOSE (UA) NEGATIVE (NEGATIVE); URINE KETONE TRACE (NEGATIVE); URINE LEUK ESTERASE NEGATIVE (NEGATIVE); URINE NITRITE NEGATIVE (NEGATIVE); URINE PROTEIN NEGATIVE (NEGATIVE); URINE UROBILINOGEN NEGATIVE mg/dL (0.2-1.0)
[2017-06-21] MEDS ORDERED: DEXAMETHASONE SOD PHOSPHATE 10 MG/1 ML VIAL ONE (17:24)
[2017-06-21 17:33] VITALS: BP 95/65; PULSE 78
[2017-06-21 17:47] LABS: INR 0.96 (0.82-1.09); PROTHROMBIN TIME (PATIENT) 10.8 SEC (9.98-11.88)
--- NOTE | 2017-06-21 20:31 | PDOC ---
*Physical Exam - Vital Signs Last Vital Signs Temp Pulse Resp BP Pulse Ox 97.4 F L 78 20 95/65 99 06/21/17 15:45 06/21/17 17:32 06/21/17 17:32 06/21/17 17:32 06/21/17 17:32 - Physical Exam Comments: 06/21/17 20:27 Best Contact: Cirilo/son [phone] I met the patient's son at the nurse's desk where he informs me that he was concerned about the preliminary reading of his mother's CT scan of her head without contrast. Patient was given a copy of the preliminary CT head scan without contrast which shows an impression of: No significant interval change or acute intracranial pathology is identified. Within the body of the report indicates: Since 2016, there remains mild volume loss and ventricular dilatation. No mass lesion , focal acute infarct or intracranial hemorrhage identified. Dense calcification of the falls, anteriorly and superiorly again seen. There is no shift of the midline structures. The craniocervical junction appears unremarkable. Minimal mucosal thickening in the ethmoid air cells. The mastoid air cells are well aerated and the calvarium is intact. After reviewing the patient's CT scan of her head, a call was placed since imaging vibration engineer [phone]/ I spoke with Dr. Tushar Austin who agrees that he sees an aneurysm to the cavernous portion of the right anterior carotid artery. Radiologist's will dictate an addendum. Patient had a CTA of the head this evening which shows: 4 x 3 mm but like aneurysm off of the cavernous portion of the right ICA. The following was on the original report: The [place] arteries are patent. There is no arterial occlusion or high-grade stenosis. There is origin of the left VEST TAILOR: A normal variant. There is no aneurysm seen. No evidence of arteriovenous malformation. Various portions of the sagittal sinus and transverse sinuses Patient's son/Cirilo presents a report to me from [facility] from . On his mother's discharge form it indicates that she has subarachnoid aneurysms. She was to follow-up with Dr. Dobbs/neurology. Patient's original appointment from calling on 06/18/2017 is set for 07/17/2017. Due to the patient being seen at our facility this evening, they were informed to call the neurologist to get an earlier appointment. ED Treatment Course - LABORATORY CBC & Chemistry Diagram: 06/21/17 16:00 06/21/17 16:00 - ADDITIONAL ORDERS Additional order review: Laboratory Results 06/21/17 06/21/17 06/21/17 16:00 16:00 16:00 PT with INR INR Sodium 139 Potassium 4.3 Chloride 104 Carbon Dioxide 27 Anion Gap 8 BUN 19 H Creatinine 0.9 Creat Clearance w eGFR > 60 Random Glucose 81 Calcium 8.9 Total Bilirubin 0.4 D AST 14 L ALT 23 Alkaline Phosphatase 64 Creatine Kinase 73 Troponin I < 0.02 Total Protein 7.2 Albumin 3.7 Triglycerides 219 H Cholesterol 216 H Total LDL Cholesterol 143 H HDL Cholesterol 43 Urine Color Straw Urine Appearance Clear Urine pH 6.0 Ur Specific [place] 1.009 Urine Protein Negative Urine Glucose (UA) Negative Urine Ketones Trace H Urine Blood Negative Urine Nitrite Negative Urine Bilirubin Negative Urine Urobilinogen Negative Ur Leukocyte Esterase Negative Blood Type A POSITIVE Antibody Screen Negative 06/21/17 16:00 PT with INR 10.80 INR 0.96 Sodium Potassium Chloride Carbon Dioxide Anion Gap BUN Creatinine Creat Clearance w eGFR Random Glucose Calcium Total Bilirubin AST ALT Alkaline Phosphatase Creatine Kinase Troponin I Total Protein Albumin Triglycerides Cholesterol Total LDL Cholesterol HDL Cholesterol Urine Color Urine Appearance Urine pH Ur Specific [place] Urine Protein Urine Glucose (UA) Urine Ketones Urine Blood Urine Nitrite Urine Bilirubin Urine Urobilinogen Ur Leukocyte Esterase Blood Type Antibody Screen 06/21/17 16:00 RBC 4.14 MCV 87.2 MCHC 34.1 RDW 14.5 Neutrophils % 47.2 D Lymphocytes % 39.2 D Monocytes % 8.7 Eosinophils % 3.9 Basophils % 1.0 - Medications Given in the ED: ED Medications Discontinued Medications Generic Name Dose Route Start Last Admin Trade Name Freq PRN Reason Stop Dose Admin Dexamethasone Sodium Phosphate 10 mg 06/21/17 16:25 06/21/17 17:24 Decadron Injection - IVPUSH 06/21/17 16:26 10 mg ONCE ONE Administration Sodium Chloride 1,000 mls @ 42 mls/hr 06/21/17 16:00 06/21/17 16:24 Normal Saline - IV 42 mls/hr ASDIR AYANNA Administration Sodium Chloride 1,000 mls @ 1,000 mls/hr 06/21/17 17:06 06/21/17 17:23 Normal Saline - IV 06/21/17 18:05 1,000 mls/hr ASDIR STA Administration Morphine Sulfate 2 mg 06/21/17 16:00 06/21/17 16:24 Morphine Injection - IVPUSH 06/21/17 16:01 2 mg ONCE ONE Administration *DC/Admit/Observation/Transfer Diagnosis at time of Disposition: Migraines - Discharge Dispostion Disposition: HOME Condition at time of disposition: Good - Referrals Referrals: Facundo Dobbs MD [Staff Physician] - Barron Gonzales MD [Staff Physician] - - Patient Instructions Printed Discharge Instructions: DI for Migraine Additional Instructions: You were evaluated today for migraine. Your cat scan and CT angiogram showed no concerning findings. Please make a follow-up appointment with Dr. Gonzales, neurology, on Friday. Return to the Emergency Department for any new/worsening/ concerning symptoms. - Post Discharge Activity
--- NOTE | 2017-06-22 14:24 | EKG ---
Test Reason : Blood Pressure : / mmHG Vent. Rate : 071 BPM Atrial Rate : 071 BPM P-R Int : 150 ms QRS Dur : 082 ms QT Int : 382 ms P-R-T Axes : 022 040 044 degrees QTc Int : 415 ms NORMAL SINUS RHYTHM NORMAL ECG Confirmed by MD GANN GREGORY ([id number]) on 06/22/2017 2:24:29 PM Referred By: Confirmed By:CRISTINA GANN MD
== END 2017-06-21 19:42 | disposition home or self-care (01) ==
LOC: JER 15:41
PROC: 3E033GC Introduction of Other Therapeutic Substance into Peripheral Vein, Percutaneous Approach (ICD-10-PCS; principal; 2017-06-21)
PROC: 3E033NZ Introduction of Analgesics, Hypnotics, Sedatives into Peripheral Vein, Percutaneous Approach (ICD-10-PCS; 2017-06-21)
PROC: 3E0337Z Introduction of Electrolytic and Water Balance Substance into Peripheral Vein, Percutaneous Approach (ICD-10-PCS; 2017-06-21)
DX: G43.909 Migraine, unspecified, not intractable, without status migrainosus (principal); E11.9 Type 2 diabetes mellitus without complications; I10 Essential (primary) hypertension; Z85.43 Personal history of malignant neoplasm of ovary
CPT/HCPCS: 36415; 70450-TC; 70496-TC; 80053; 81003; 82465; 82550; 82962; 83718; 83721; 84478; 84484; 85025; 85610; 86850; 86900; 86901; 93005; 93010; 99285-25; J1100

== ENCOUNTER 2018-04-15 16:04 | Emergency (ER) | payer OTHER ==
--- NOTE | 2018-04-15 16:36 | PDOC ---
Rapid Medical Evaluation Medical Evaluation: Allergies Allergy/AdvReac Type Severity Reaction Status Date / Time Penicillins Allergy Unknown Rash Verified 07/12/17 18:37 I have performed a brief in-person evaluation of this patient. The patient presents with a chief complaint of: Hx of ovarian CA, had port removed last week; noticed redness around site x 4 days; has chills, but denies fever Pertinent physical exam findings: Scant purulent discharge from port site ( along R upper chest wall) with minimal redness I have ordered the following: Basic labs The patient will proceed to the ED for further evaluation. 04/15/18 16:30
[2018-04-15 16:37] VITALS: BP 147/86; PULSE 86; TEMP 98.2; BMI 26.6
[2018-04-15 17:12] LABS: BASO % 0.8 % (0-2.0); EOS % 6.7 % (0-4.5); HEMATOCRIT 35.5 % (32.4-45.2); HEMOGLOBIN 12.3 GM/dL (10.7-15.3); LYMPH % 38.3 % (8-40); MCH 30.1 pg (25.7-33.7); MCHC 34.7 g/dl (32.0-36.0); MEAN CELL VOLUME 86.7 fl (80-96); MEAN PLT VOLUME 8.6 fl (7.5-11.1); MONO % 9.4 % (3.8-10.2); NEUT % 44.8 % (42.8-82.8); PLATELET COUNT 335 K/MM3 (134-434); WHITE BLOOD COUNT 5.5 K/mm3 (4.0-10.0)
[2018-04-15 17:34] LABS: ANION GAP 8 MMOL/L (8-16); BLOOD UREA NITROGEN 16 mg/dL (7-18); CALCIUM 8.7 mg/dL (8.5-10.1); CHLORIDE 104 mmol/L (98-107); CO2 29 mmol/L (21-32); CREATININE 0.8 mg/dL (0.55-1.3); GLUCOSE,RANDOM 115 mg/dL (74-106); POTASSIUM 3.8 mmol/L (3.5-5.1); SODIUM 140 mmol/L (136-145)
--- NOTE | 2018-04-15 18:39 | PDOC ---
History of Present Illness - General Chief Complaint: Redness To Affected Area Stated Complaint: FEVER Time Seen by Provider: 04/15/18 18:29 - History of Present Illness Initial Comments: 58yo F with PMH of ovarian carcinoma s/p chemotherapy, HTN, pre-DM presenting with redness to her port site. Patient states the port was removed one week ago. Four days ago she noticed redness to the port site. Yesterday, she noticed drainage of some clear fluid and also endorses chills. Patients son called her oncologist who instructed her to come to the emergency department for evaluation. Denies fevers, chest pain, shortness of breath, or abdominal pain. Past History - Past Medical History Allergies/Adverse Reactions: Allergies Allergy/AdvReac Type Severity Reaction Status Date / Time Penicillins Allergy Unknown Rash Verified 04/15/18 16:38 Home Medications: Ambulatory Orders Aspirin 81 mg PO DAILY #0 tab 09/18/16 Divalproex [Depakote -] 500 mg PO BID #120 tablet.ec 09/18/16 Docusate Sodium [Colace -] 300 mg PO HS tab 09/18/16 Meclizine HCl [Antivert -] 12.5 mg PO TID PRN #90 tablet 09/18/16 Pravastatin Sodium [Pravachol -] 20 mg PO HS #0 tab 09/18/16 metFORMIN HCL [Glucophage -] 500 mg PO DAILY #0 tab 09/18/16 Lisinopril [Zestril] 2.5 mg PO DAILY 07/12/17 Clindamycin [Cleocin -] 450 mg PO TID #90 capsule 04/15/18 Asthma: No Cancer: Yes (ovarian 09/2015) CVA: (brain aneurysm) COPD: No Diabetes: Yes (NIDDM) HTN: Yes - Immunization History Immunization Up to Date: Yes - Suicide/Smoking/Psychosocial Hx Smoking Status: No Smoking History: Never smoked Have you smoked in the past 12 months: No Number of Cigarettes Smoked Daily: 0 Information on smoking cessation initiated: No Hx Alcohol Use: No Drug/Substance Use Hx: No Substance Use Type: None Hx Substance Use Treatment: No Review of Systems - Review of Systems Comments:: Constitutional: no fever, +chills HEENT: no throat pain, no dysphagia Cardiovascular: no chest pain, no palpitations Respiratory: no cough, no shortness of breath Gastrointestinal: no abdominal pain, no nausea, no vomiting Genitourinary: no dysuria, no frequency Musculoskeletal: no myalgia, no arthralgia Skin: +erythema, +itching Neurologic: no headache, no dizziness *Physical Exam - Vital Signs Last Vital Signs Temp Pulse Resp BP Pulse Ox 98.2 F 86 16 147/86 100 04/15/18 16:33 04/15/18 16:33 04/15/18 16:33 04/15/18 16:33 04/15/18 16:33 - Physical Exam Comments: General: Awake, alert, and fully oriented, in no acute distress Head: No signs of trauma Eyes: EOMI, sclera anicteric ENT: Moist mucus membranes Neck: Normal ROM, supple Lungs: Lungs clear, Normal breath sounds Cardio: Regular rhythm, S1 and S2 present Abdomen: Soft, nontender. No guarding, no rebound, no masses Extremities: Normal range of motion, Distal pulses present SKIN: Scar from removed chemo-port present inferior to right subclavian, about 3cm in length with surrounding erythema and draining serous fluid; no fluctuance , induration, or lymphangitis present Neurologic: Cranial nerves II through XII grossly intact. Normal speech Bedside Ultrasound over port site: No abscess present Moderate Sedation - Procedure Monitoring Vital Signs: Procedure Monitoring Vital Signs Temperature 98.2 F 04/15/18 16:33 Pulse Rate 86 04/15/18 16:33 Respiratory Rate 16 04/15/18 16:33 Blood Pressure 147/86 04/15/18 16:33 O2 Sat by Pulse Oximetry (%) 100 04/15/18 16:33 ED Treatment Course - LABORATORY CBC & Chemistry Diagram: 04/15/18 17:03 04/15/18 17:03 - ADDITIONAL ORDERS Additional order review: Laboratory Results 04/15/18 17:03 Sodium 140 Potassium 3.8 Chloride 104 Carbon Dioxide 29 Anion Gap 8 BUN 16 Creatinine 0.8 Creat Clearance w eGFR > 60 Random Glucose 115 H Calcium 8.7 04/15/18 17:03 RBC 4.10 MCV 86.7 MCHC 34.7 RDW 15.0 MPV 8.6 Neutrophils % 44.8 D Lymphocytes % 38.3 D Monocytes % 9.4 Eosinophils % 6.7 H Basophils % 0.8 Medical Decision Making - Medical Decision Making 58yo F with PMH of ovarian carcinoma s/p chemotherapy, HTN, pre-DM presenting with redness to her port site. -Labs drawn from triage do not show leukocytosis or anemia -Patient is well-appearing, afebrile; as she does not show systemic signs of infection, plan to treat with po antibiotics -Ordered Clindamycin 450mg -Wound cleansed with gauze and normal saline, topical bacitracin applied -Patient instructed to follow-up with her primary care provider and oncologist -Antibiotics prescription sent to pharmacy -Discharged 04/15/18 21:52 *DC/Admit/Observation/Transfer Diagnosis at time of Disposition: Skin infection - Discharge Dispostion Disposition: HOME Condition at time of disposition: Stable - Prescriptions Prescriptions: Clindamycin [Cleocin -] 450 mg PO TID #90 capsule - Referrals Referrals: Eleazar Ken [Primary Care Provider] - - Patient Instructions Printed Discharge Instructions: DI for Wound Infection Additional Instructions: You came to the ED because you have had redness to your port site. Antibiotics prescription sent to your pharmacy: Clindamycin 450mg (three tablets ) three times a day for ten days Follow-up with your primary care doctor and oncologist in 5-7 days to discuss the ED visit and to ensure your treatment is progressing appropriately. Immediate medical attention is required if you have: redness or hardness around the site, pain or tenderness, a red streak, yellow or green discharge oozing from the wound, or fever. If you think you are having an emergency, call for emergency medical services or present to the emergency department right away. - Post Discharge Activity
--- NOTE | 2018-04-15 19:18 | PDOC ---
Attending Attestation - Resident Resident Name: PetraFrancisca - ED Attending Attestation I have performed the following: I have examined & evaluated the patient, The case was reviewed & discussed with the resident, I agree w/resident's findings & plan, Exceptions are as noted - Medical Decision Making 04/15/18 19:18 I, Dr. Marah Rai, DO, attest that this document has been prepared under my direction and personally reviewed by me in its entirety. I further attest, that it accurately reflects all work, treatment, procedures and medical decision -making performed by me. 04/15/18 19:50 a/p: 58yo female with hx of ca with her port a cath removed last week -4 days of mild redness to the site and drainage from the site -concern for localized infection -no lymphangitic spread, no fevers -labs sent from [facility] - no elevated wbc, no neutrophilic shift -pt is nontoxic in appearance -will send a wound culture -will start oral abx -will try outpt management with oral abx given nontoxic appearance 04/15/18 20:34 no abscess seen on ultrasound dc with clindamycin <Marah Rai - Last Filed: 04/15/18 20:34> - HPI HPI: 04/15/18 19:35 The patient is a 58 year old female with a significant PMH of ovarian cancer s/ p chemo, last chemo was on 03/2016, HTN, and pre-diabetes who presents to the emergency department with redness to her port site which was removed 1 week ago. Patient noticed white, watery fluid at the site. Patient also admits to a pinching sensation but no pain to the port site. Patient called her oncologist who told her to come to the ER for evaluation. The patient denies chest pain, shortness of breath, headache and dizziness. Denies fever, chills, nausea, vomit, diarrhea and constipation. Denies dysuria, frequency, urgency and hematuria. Allergies: NKA Past surgical history: None reported. Social history: No reported alcohol, drug or cigarette use. - Physicial Exam PE: 04/15/18 21:45 ADULT PHYSICAL EXAM Constitutional: Awake, alert, oriented. No acute distress. Head: Normocephalic. Atraumatic Eyes: PERRL. EOMI. Conjunctivae are not pale. ENT: Mucous membranes are moist and intact. Posterior pharynx without exudates or erythema. Uvula midline. Neck: Supple. Full ROM. No lymphadenopathy. Cardiovascular: Regular rate. Regular rhythm. S1, S2 regular. Distal pulses are 2+ and symmetric. Pulmonary/Chest: No evidence of respiratory distress. Clear to auscultation bilaterally No wheezing, rales or rhonchi. Abdominal: Soft and non-distended. There is no tenderness. No rebound, guarding or rigidity. No organomegaly. No palpable masses. Good bowel sounds. Back: No CVA tenderness. Musculoskeletal: No edema. No cyanosis. No clubbing. Full range of motion in all extremities. Nocalf tenderness. Radial/pedal pulses are intact and 2+ bilaterally Skin: (+) Port site with purulent drainage. No fluctuance. No induration. Neurological: Alert and oriented to person, place, and time. Cranial nerves II -XII are grossly intact. Normal speech. Strength is grossly symmetric. No sensory deficits. Psychiatric: Good eye contact. Normal interaction, affect and behavior. <Bita Castellanos - Last Filed: 04/15/18 21:47>
[2018-04-15] MEDS ORDERED: CLINDAMYCIN HCL 150 MG CAPSULE (FP) PO ONE (19:31)
[2018-04-15] MEDS ORDERED: BACITRACIN 0.9 GM PACKET TP ONE (19:42)
[2018-04-15] MEDS ORDERED: BACITRACIN 0.9 GM PACKET ONE (19:49)
[2018-04-15] MEDS ORDERED: CLINDAMYCIN HCL 150 MG CAPSULE (FP) ONE (20:09)
== END 2018-04-15 20:42 | disposition home or self-care (01) ==
LOC: JER 16:04
DX: L08.89 Other specified local infections of the skin and subcutaneous tissue (principal); Z85.43 Personal history of malignant neoplasm of ovary; I10 Essential (primary) hypertension; E11.9 Type 2 diabetes mellitus without complications; Z79.84 Long term (current) use of oral hypoglycemic drugs; Z86.79 Personal history of other diseases of the circulatory system
CPT/HCPCS: 36415; 80048; 85025; 87070; 87077; 87205; 99281-25

== ENCOUNTER 2018-04-28 01:44 | Emergency (ER) | payer OTHER ==
--- NOTE | 2018-04-28 01:58 | PDOC ---
History of Present Illness - General Chief Complaint: Back Pain Stated Complaint: ALLERGIC REACTION Time Seen by Provider: 04/28/18 01:57 - History of Present Illness Initial Comments: 04/28/18 03:07 Ms. 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 Patient reports she first had R shoulder pain "on the inside" radiating to her stomach this morning that has intermittently occurred throughout the day. Patient also reports noticing today diffuse swelling/hives intermittently along her body. Patient cannot relate symptoms to any activity, trauma, or contact. Also endorses nausea + vomiting x1 today. Last BM yesterday was normal. No one else is sick at home. The patient denies chest pain, shortness of breath, headache and dizziness. Denies fever, chills, diarrhea and constipation. Denies dysuria, frequency, urgency and hematuria. Past History - Past Medical History Allergies/Adverse Reactions: Allergies Allergy/AdvReac Type Severity Reaction Status Date / Time Penicillins Allergy Unknown Rash Verified 04/28/18 01:59 Home Medications: Ambulatory Orders Aspirin 81 mg PO DAILY #0 tab 09/18/16 Divalproex [Depakote -] 500 mg PO BID #120 tablet.ec 09/18/16 Pravastatin Sodium [Pravachol -] 20 mg PO HS #0 tab 09/18/16 metFORMIN HCL [Glucophage -] 500 mg PO DAILY #0 tab 09/18/16 Lisinopril [Zestril] 2.5 mg PO DAILY 07/12/17 Asthma: No Cancer: Yes (ovarian 09/2015) CVA: (brain aneurysm) COPD: No Diabetes: Yes (NIDDM) HTN: Yes - Immunization History Immunization Up to Date: Yes - Suicide/Smoking/Psychosocial Hx Smoking Status: No Smoking History: Never smoked Have you smoked in the past 12 months: No Number of Cigarettes Smoked Daily: 0 Hx Alcohol Use: No Drug/Substance Use Hx: No Substance Use Type: None Hx Substance Use Treatment: No Review of Systems - Review of Systems Comments:: 04/28/18 03:29 GENERAL/CONSTITUTIONAL: No fever or chills. No weakness. HEAD, EYES, EARS, NOSE AND THROAT: No change in vision. No ear pain or discharge. No sore throat. CARDIOVASCULAR: No chest pain or shortness of breath RESPIRATORY: No cough, wheezing, or hemoptysis. GASTROINTESTINAL: +N/V x1. No diarrhea or constipation. GENITOURINARY: No dysuria, frequency, or change in urination. MUSCULOSKELETAL: +Shoulder/back/R side pain as described. SKIN: No rash NEUROLOGIC: No headache, vertigo, loss of consciousness, or change in strength/ sensation. ENDOCRINE: No increased thirst. No abnormal weight change HEMATOLOGIC/LYMPHATIC: No anemia, easy bleeding, or history of blood clots. ALLERGIC/IMMUNOLOGIC: +Skin changes as described. *Physical Exam - Physical Exam Comments: 04/28/18 03:29 GENERAL: Awake, alert, and fully oriented, in no acute distress HEAD: No signs of trauma, normocephalic, atraumatic EYES: PERRLA, EOMI, sclera anicteric, conjunctiva clear ENT: Auricles normal inspection, hearing grossly normal, nares patent, oropharynx clear without exudates. Moist mucosa NECK: Normal ROM, supple, no lymphadenopathy, JVD, or masses LUNGS: No distress, speaks full sentences, clear to auscultation bilaterally HEART: Regular rate and rhythm, normal S1 and S2, no murmurs, rubs or gallops, peripheral pulses normal and equal bilaterally. ABDOMEN: Soft, nontender, normoactive bowel sounds. No guarding, no rebound. No masses EXTREMITIES: Normal inspection, Normal range of motion, no edema. No clubbing or cyanosis. NEUROLOGICAL: Cranial nerves II through XII grossly intact. Normal speech, normal gait, no focal sensorimotor deficits SKIN: +Small hives noted to L occular area and R chin. ED Treatment Course - LABORATORY CBC & Chemistry Diagram: 04/28/18 03:20 04/28/18 03:20 Medical Decision Making - Medical Decision Making 04/28/18 06:28 Ms. Staton is a 58 yo female w/ pmh as described who presents for evaluation of multiple symptoms of hives, pain, and nausea/vomiting. Patient given morphine and solumedrol at presentation for symptomatic relief. Given disparate nature of symptoms broad workup started with chest CTA, abdomen / pelvis CT, laboratory evaluation, EKG, and urinary analysis. Labs grossly wnl as below. EKG negative. Patient currently pending CT's. Patient signed out to Dr. Prak for further evaluation. Laboratory Results - last 24 hr 04/28/18 04/28/18 04/28/18 03:20 03:20 03:20 WBC 8.4 RBC 4.25 Hgb 12.4 Hct 36.3 MCV 85.5 MCH 29.2 MCHC 34.2 RDW 14.8 Plt Count 368 MPV 9.1 Absolute Neuts (auto) 3.9 Neutrophils % 46.7 Lymphocytes % 42.4 H Monocytes % 8.3 Eosinophils % 2.1 Basophils % 0.5 Nucleated RBC % 0 Sodium 138 Potassium 3.9 Chloride 102 Carbon Dioxide 28 Anion Gap 8 BUN 16 Creatinine 0.8 Creat Clearance w eGFR > 60 Random Glucose 98 Lactic Acid Calcium 9.1 Total Bilirubin 0.4 AST 14 L ALT 20 Alkaline Phosphatase 67 Creatine Kinase Cancelled 80 Troponin I Cancelled < 0.02 Total Protein 7.5 Albumin 3.9 Lipase 135 Urine Color Urine Appearance Urine pH Ur Specific [place] Urine Protein Urine Glucose (UA) Urine Ketones Urine Blood Urine Nitrite Urine Bilirubin Urine Urobilinogen Ur Leukocyte Esterase 04/28/18 04/28/18 03:20 04:20 WBC RBC Hgb Hct MCV MCH MCHC RDW Plt Count MPV Absolute Neuts (auto) Neutrophils % Lymphocytes % Monocytes % Eosinophils % Basophils % Nucleated RBC % Sodium Potassium Chloride Carbon Dioxide Anion Gap BUN Creatinine Creat Clearance w eGFR Random Glucose Lactic Acid 1.2 Calcium Total Bilirubin AST ALT Alkaline Phosphatase Creatine Kinase Troponin I Total Protein Albumin Lipase Urine Color Ltyellow Urine Appearance Clear Urine pH 8.0 D Ur Specific [place] 1.015 Urine Protein Negative Urine Glucose (UA) Negative Urine Ketones Negative Urine Blood Negative Urine Nitrite Negative Urine Bilirubin Negative Urine Urobilinogen Negative Ur Leukocyte Esterase Negative *DC/Admit/Observation/Transfer Diagnosis at time of Disposition: Hives Back pain Qualifiers: Back pain location: back pain in unspecified location Chronicity: unspecified Back pain laterality: unspecified Qualified Code(s): M54.9 - Dorsalgia, unspecified Abdominal pain Qualifiers: Abdominal location: unspecified location Qualified Code(s): R10.9 - Unspecified abdominal pain - Discharge Dispostion Condition at time of disposition: Fair - Referrals Referrals: Eleazar Ken [Primary Care Provider] - - Patient Instructions - Post Discharge Activity
[2018-04-28 01:59] VITALS: TEMP 97.9; BMI 27.4
[2018-04-28] MEDS ORDERED: morphine CARPU-JECT 4 MG/1 ML DISP.SYRIN IVPUSH ONE (02:22)
[2018-04-28] MEDS ORDERED: methylPREDNISolone NA SUCC 125 MG/2 ML VIAL IVPUSH ONE (02:22)
[2018-04-28] MEDS ORDERED: morphine SULFATE 4 MG/ML VIAL ONE (02:34)
[2018-04-28] MEDS ORDERED: methylPREDNISolone NA SUCC 125 MG/2 ML VIAL ONE (02:34)
--- NOTE | 2018-04-28 03:24 | PDOC ---
Attending Attestation - Resident Resident Name: Cirilo Fowler - ED Attending Attestation I have performed the following: I have examined & evaluated the patient, The case was reviewed & discussed with the resident, I agree w/resident's findings & plan, Exceptions are as noted - HPI HPI: 04/28/18 03:15 58 F with ovarian CA s/p chemotherapy, now in remission, pre-DM, HTN, presenting to ED with sudden onset R sided chest pain and shoulder pain. Pt states that she has pain radiating from her R shoulder down to her R side around her R breast. States that the pain is much worse with swallowing of any solid or liquids. She denies N/V. Denies diarrhea/constipation. She denies any mouth or throat pain. Pt states the pain is also worse with deep inspiration. Denies any SOB. Pt also complains of itchiness and hives to her chest and abdomen that also started today, as well as swelling to her forehead. Of note, pt has been taking clindamycin for the past week due to an infection at her old port site. Pt finished the abx today and did not have any adverse reaction until today. Of note, pt was admitted approx 1 year ago for similar complaint. Had negative work up including CTA chest and serial troponins. - Physicial Exam PE: 04/28/18 03:26 GENERAL: Awake, alert, and fully oriented, in no acute distress. HEAD: No signs of trauma EYES: PERRLA, EOMI, sclera anicteric, conjunctiva clear ENT: Auricles normal inspection, hearing grossly normal, nares patent, oropharynx clear without exudates. Moist mucosa NECK: Nontender, no stepoffs, Normal ROM, supple, no lymphadenopathy, JVD, or masses LUNGS: Breath sounds equal, clear to auscultation bilaterally. No wheezes, and no crackles HEART: Regular rate and rhythm, normal S1 and S2, no murmurs, rubs or gallops ABDOMEN: Soft, nontender, normoactive bowel sounds. No guarding, no rebound. No masses EXTREMITIES: Normal range of motion, no edema. No clubbing or cyanosis. No cords, erythema, or tenderness NEUROLOGICAL: Cranial nerves II through XII intact. 5/5 strength and sensation in all extremities, Normal speech, normal gait, normal cerebellar function SKIN: + scattered wheals to face, no lip or tongue swelling, no rash to chest/ abdomen/extremities - Medical Decision Making 04/28/18 03:35 58 F with pleuritic chest pain radiating from R shoulder to under R breast, associated with swallowing. Etiology unclear. Given h/o cancer, will need to r/ o PE, though pt had negative CTA last year with same presentation. Also consider referred pain from diaphragm. Pt with benign abdomen but will evaluate for liver/gallbladder pathology. Pt also seems to be having allergic reaction, though unclear to what. - Labs, trop - CTA chest - CT abd/pelvis - Pain control - Benadryl, steroids 04/28/18 06:45 Pt signed out to oncoming attending, pending labwork, imaging, and re- evaluation.
[2018-04-28] MEDS ORDERED: ACETAMINOPHEN 1000 MG/100 ML VIAL (NON FORMULARY) IVPB ONE (03:25)
[2018-04-28] MEDS ORDERED: ACETAMINOPHEN INJECTION 100 ML IVPB ONE (04:02)
[2018-04-28 04:14] LABS: BASO % 0.5 % (0-2.0); EOS % 2.1 % (0-4.5); HEMATOCRIT 36.3 % (32.4-45.2); HEMOGLOBIN 12.4 GM/dL (10.7-15.3); LYMPH % 42.4 % (8-40); MCH 29.2 pg (25.7-33.7); MCHC 34.2 g/dl (32.0-36.0); MEAN CELL VOLUME 85.5 fl (80-96); MEAN PLT VOLUME 9.1 fl (7.5-11.1); MONO % 8.3 % (3.8-10.2); NEUT % 46.7 % (42.8-82.8); PLATELET COUNT 368 K/MM3 (134-434); RBC 4.25 M/mm3 (3.60-5.2); RDW 14.8 % (11.6-15.6); WHITE BLOOD COUNT 8.4 K/mm3 (4.0-10.0)
[2018-04-28 04:30] LABS: URINE APPEARANCE CLEAR; URINE BILIRUBIN NEGATIVE (<2.0 mg/dL); URINE COLOR LTYELLOW; URINE GLUCOSE (UA) NEGATIVE (NEGATIVE); URINE KETONE NEGATIVE (NEGATIVE); URINE LEUK ESTERASE NEGATIVE (NEGATIVE); URINE NITRITE NEGATIVE (NEGATIVE); URINE PROTEIN NEGATIVE (NEGATIVE); URINE UROBILINOGEN NEGATIVE mg/dL (0.2-1.0)
[2018-04-28 04:44] LABS: ALBUMIN 3.9 g/dl (3.4-5.0); ALK PHOS 67 U/L (45-117); ANION GAP 8 MMOL/L (8-16); BILIRUBIN,TOTAL 0.4 mg/dL (0.2-1); BLOOD UREA NITROGEN 16 mg/dL (7-18); CALCIUM 9.1 mg/dL (8.5-10.1); CHLORIDE 102 mmol/L (98-107); CO2 28 mmol/L (21-32); CREATININE 0.8 mg/dL (0.55-1.3); GLUCOSE,RANDOM 98 mg/dL (74-106); LIPASE 135 U/L (73-393); POTASSIUM 3.9 mmol/L (3.5-5.1); SGOT/AST 14 U/L (15-37); SGPT/ALT 20 U/L (13-61); SODIUM 138 mmol/L (136-145); TOT PROT 7.5 g/dl (6.4-8.2)
[2018-04-28 06:47] VITALS: BP 138/65; PULSE 77
--- NOTE | 2018-04-28 06:59 | PDOC ---
*Physical Exam - Vital Signs Last Vital Signs Temp Pulse Resp BP Pulse Ox 97.9 F 77 18 138/65 100 04/28/18 01:44 04/28/18 06:46 04/28/18 06:46 04/28/18 06:46 04/28/18 06:46 <Caro Rogers - Last Filed: 04/28/18 07:37> - Vital Signs Last Vital Signs Temp Pulse Resp BP Pulse Ox 97.9 F 77 18 138/65 100 04/28/18 01:44 04/28/18 06:46 04/28/18 06:46 04/28/18 06:46 04/28/18 06:46 - Physical Exam Comments: 04/28/18 07:58 General Appearance: Nourished. No Apparent Distress HEENT: No Pharyngeal Erythema, Tonsillar Exudate, Tonsillar Erythema Neck: No Cervical Lymphadenopathy Respiratory/Chest: Lungs Clear, Normal Breath Sounds. No Crackles, Rales, Rhonchi, Wheezing Cardiovascular: Regular Rhythm, Regular Rate. No Murmur, Gallops, Rubs Gastrointestinal/Abdominal: Normal Bowel Sounds, Soft. No Guarding, Rebound, Tenderness Musculoskeletal: No CVA Tenderness Extremity: Normal Capillary Refill Integumentary: Normal Color, Dry, Warm Neurologic: Fully Oriented, Alert, Normal Mood/Affect, Normal Response, <[place] - Last Filed: 04/28/18 08:00> ED Treatment Course - LABORATORY CBC & Chemistry Diagram: 04/28/18 03:20 04/28/18 03:20 - ADDITIONAL ORDERS Additional order review: Laboratory Results 04/28/18 04/28/18 04/28/18 04:20 03:20 03:20 Sodium 138 Potassium 3.9 Chloride 102 Carbon Dioxide 28 Anion Gap 8 BUN 16 Creatinine 0.8 Creat Clearance w eGFR > 60 Random Glucose 98 Lactic Acid 1.2 Calcium 9.1 Total Bilirubin 0.4 AST 14 L ALT 20 Alkaline Phosphatase 67 Creatine Kinase 80 Troponin I < 0.02 Total Protein 7.5 Albumin 3.9 Lipase 135 Urine Color Ltyellow Urine Appearance Clear Urine pH 8.0 D Ur Specific [place] 1.015 Urine Protein Negative Urine Glucose (UA) Negative Urine Ketones Negative Urine Blood Negative Urine Nitrite Negative Urine Bilirubin Negative Urine Urobilinogen Negative Ur Leukocyte Esterase Negative 04/28/18 03:20 Sodium Potassium Chloride Carbon Dioxide Anion Gap BUN Creatinine Creat Clearance w eGFR Random Glucose Lactic Acid Calcium Total Bilirubin AST ALT Alkaline Phosphatase Creatine Kinase Cancelled Troponin I Cancelled Total Protein Albumin Lipase Urine Color Urine Appearance Urine pH Ur Specific [place] Urine Protein Urine Glucose (UA) Urine Ketones Urine Blood Urine Nitrite Urine Bilirubin Urine Urobilinogen Ur Leukocyte Esterase 04/28/18 03:20 RBC 4.25 MCV 85.5 MCHC 34.2 RDW 14.8 MPV 9.1 Neutrophils % 46.7 Lymphocytes % 42.4 H Monocytes % 8.3 Eosinophils % 2.1 Basophils % 0.5 - Medications Given in the ED: ED Medications Discontinued Medications Generic Name Dose Route Start Last Admin Trade Name Freq PRN Reason Stop Dose Admin Acetaminophen 1,000 mg 04/28/18 03:25 04/28/18 04:32 Ofirmev Injection - IVPB 04/28/18 03:26 1,000 mg ONCE ONE Administration Diphenhydramine HCl 50 mg 04/28/18 03:25 04/28/18 04:32 Benadryl Injection - IVPUSH 04/28/18 03:26 50 mg ONCE ONE Administration Methylprednisolone Sodium Succinate 125 mg 04/28/18 02:22 04/28/18 02:40 Solu-Medrol - IVPUSH 04/28/18 02:23 125 mg ONCE ONE Administration Morphine Sulfate 4 mg 04/28/18 02:22 04/28/18 02:39 Morphine Injection - IVPUSH 04/28/18 02:23 4 mg ONCE ONE Administration <Caro Rogers - Last Filed: 04/28/18 07:37> - LABORATORY CBC & Chemistry Diagram: 04/28/18 03:20 04/28/18 03:20 - ADDITIONAL ORDERS Additional order review: Laboratory Results 04/28/18 04/28/18 04/28/18 04:20 03:20 03:20 Sodium 138 Potassium 3.9 Chloride 102 Carbon Dioxide 28 Anion Gap 8 BUN 16 Creatinine 0.8 Creat Clearance w eGFR > 60 Random Glucose 98 Lactic Acid 1.2 Calcium 9.1 Total Bilirubin 0.4 AST 14 L ALT 20 Alkaline Phosphatase 67 Creatine Kinase 80 Troponin I < 0.02 Total Protein 7.5 Albumin 3.9 Lipase 135 Urine Color Ltyellow Urine Appearance Clear Urine pH 8.0 D Ur Specific [place] 1.015 Urine Protein Negative Urine Glucose (UA) Negative Urine Ketones Negative Urine Blood Negative Urine Nitrite Negative Urine Bilirubin Negative Urine Urobilinogen Negative Ur Leukocyte Esterase Negative 04/28/18 03:20 Sodium Potassium Chloride Carbon Dioxide Anion Gap BUN Creatinine Creat Clearance w eGFR Random Glucose Lactic Acid Calcium Total Bilirubin AST ALT Alkaline Phosphatase Creatine Kinase Cancelled Troponin I Cancelled Total Protein Albumin Lipase Urine Color Urine Appearance Urine pH Ur Specific [place] Urine Protein Urine Glucose (UA) Urine Ketones Urine Blood Urine Nitrite Urine Bilirubin Urine Urobilinogen Ur Leukocyte Esterase 04/28/18 03:20 RBC 4.25 MCV 85.5 MCHC 34.2 RDW 14.8 MPV 9.1 Neutrophils % 46.7 Lymphocytes % 42.4 H Monocytes % 8.3 Eosinophils % 2.1 Basophils % 0.5 - Medications Given in the ED: ED Medications Discontinued Medications Generic Name Dose Route Start Last Admin Trade Name Darriusq PRN Reason Stop Dose Admin Acetaminophen 1,000 mg 04/28/18 03:25 04/28/18 04:32 Ofirmev Injection - IVPB 04/28/18 03:26 1,000 mg ONCE ONE Administration Diphenhydramine HCl 50 mg 04/28/18 03:25 04/28/18 04:32 Benadryl Injection - IVPUSH 04/28/18 03:26 50 mg ONCE ONE Administration Methylprednisolone Sodium Succinate 125 mg 04/28/18 02:22 04/28/18 02:40 Solu-Medrol - IVPUSH 04/28/18 02:23 125 mg ONCE ONE Administration Morphine Sulfate 4 mg 04/28/18 02:22 04/28/18 02:39 Morphine Injection - IVPUSH 04/28/18 02:23 4 mg ONCE ONE Administration <[place] - Last Filed: 04/28/18 08:00> Progress Note - Progress Note Progress Note: The patient is a 58 year old female with an extensive PMH who presents for back pain. The patient's lab results have been unremarkable thus far. The patient is pending a CT chest/abdomen/pelvis for further evaluation. <[place] - Last Filed: 04/28/18 08:00> Medical Decision Making - Medical Decision Making 04/28/18 07:35 pt signed out from Dr Aguilera pending reeval CT chest neg for acute pathology, +right upper chest/abdominal wall lesion CT a/p neg for aneurysm/abdominal pathology or obstruction. labs and lytes normal. neg trop, doubt ACS. no s/s infection Vitals wnl. given analgesia overnight, tylenol, steroids, benadryl and morphine, with pain relief. no s/s severe allergic reaction, anaphylaxis, unclear etiology of initial hives that have resolved dispo: discharge in stable condition, PCP followup. 04/28/18 07:36 04/28/18 07:37 04/28/18 07:37 <Caro Rogers - Last Filed: 04/28/18 07:37> *DC/Admit/Observation/Transfer <Caro Rogers - Last Filed: 04/28/18 07:37> <[place] - Last Filed: 04/28/18 08:00> Diagnosis at time of Disposition: Hives Back pain Qualifiers: Back pain location: back pain in unspecified location Chronicity: unspecified Back pain laterality: unspecified Qualified Code(s): M54.9 - Dorsalgia, unspecified Abdominal pain Qualifiers: Abdominal location: unspecified location Qualified Code(s): R10.9 - Unspecified abdominal pain - Discharge Dispostion Disposition: HOME Condition at time of disposition: Good - Prescriptions Prescriptions: Diphenhydramine HCl [Benadryl -] 25 mg PO Q8H PRN #21 capsule PRN Reason: Hives Naproxen [Naprosyn -] 500 mg PO BID PRN #14 tablet PRN Reason: Pain - Referrals Referrals: Eleazar Ken [Primary Care Provider] - Esteban De La Cruz MD [Staff Physician] - Galo Cristina MD [Staff Physician] - - Patient Instructions Printed Discharge Instructions: DI for Hives, DI for Thoracic Back Pain Additional Instructions: Please return to the ER if you experience concerning or worsening symptoms including worsening difficulty breathing, weakness, or chest pain, vomiting, pain. Your lab results were normal here in the ER. Your CT scan showed a small hiatal hernia but was otherwise normal. Please call to schedule a follow up appointment with your primary care provider, our Review Nurse, and our GI specialist within 2-3 days to discuss your ER visit and further management of your symptoms. - Post Discharge Activity
[2018-04-28] MEDS ORDERED: KETOROLAC TROMETHAMINE 30 MG/1 ML VIAL IVPUSH ONE (07:49)
[2018-04-28] MEDS ORDERED: KETOROLAC TROMETHAMINE 30 MG/1 ML VIAL ONE (08:02)
--- NOTE | 2018-04-28 10:00 | EKG ---
Test Reason : Blood Pressure : / mmHG Vent. Rate : 088 BPM Atrial Rate : 088 BPM P-R Int : 136 ms QRS Dur : 084 ms QT Int : 372 ms P-R-T Axes : 059 031 036 degrees QTc Int : 450 ms NORMAL SINUS RHYTHM NORMAL ECG WHEN COMPARED WITH ECG OF 12-JUL-2017 20:12, NO SIGNIFICANT CHANGE WAS FOUND Confirmed by Mekhi Goetz MD ([id number]) on 04/28/2018 9:59:55 AM Referred By: Confirmed By:Mekhi Goezt MD
== END 2018-04-28 08:30 | disposition home or self-care (01) ==
LOC: JER 01:44
PROC: 3E033NZ Introduction of Analgesics, Hypnotics, Sedatives into Peripheral Vein, Percutaneous Approach (ICD-10-PCS; principal; 2018-04-28)
PROC: 3E033GC Introduction of Other Therapeutic Substance into Peripheral Vein, Percutaneous Approach (ICD-10-PCS; 2018-04-28)
PROC: 3E0333Z Introduction of Anti-inflammatory into Peripheral Vein, Percutaneous Approach (ICD-10-PCS; 2018-04-28)
DX: R10.9 Unspecified abdominal pain (principal); L50.9 Urticaria, unspecified; M54.9 Dorsalgia, unspecified; I10 Essential (primary) hypertension; E11.9 Type 2 diabetes mellitus without complications
CPT/HCPCS: 36415; 71275-TC; 74177-TC; 80053; 81003; 82550; 83605; 83690; 84484; 85025; 87040; 93005; 93010; 99283-25; J0131

== ENCOUNTER 2018-11-09 17:47 | Emergency (ER) | payer OTHER ==
[2018-11-09 18:02] VITALS: BP 129/81; PULSE 81; TEMP 97.9
[2018-11-09] MEDS ORDERED: methylPREDNISolone NA SUCC 125 MG/2 ML VIAL IVPB ONE (18:25)
[2018-11-09] MEDS ORDERED: FAMOTIDINE 20 MG/50 ML IVPB 20 MG/50 ML MG IVPB ONE ×2 (18:25→18:28)
[2018-11-09] MEDS ORDERED: SODIUM CHLORIDE 1,000 ML IV STA (18:26)
[2018-11-09] MEDS ORDERED: methylPREDNISolone NA SUCC 125 MG/2 ML VIAL ONE (18:28)
[2018-11-09] MEDS ORDERED: ONDANSETRON 4 MG/2 ML VIAL IVPUSH ONE (19:27)
[2018-11-09] MEDS ORDERED: ONDANSETRON 4 MG/2 ML VIAL ONE (19:30)
[2018-11-09 19:45] LABS: BASO % 0.8 % (0-2.0); EOS % 4.9 % (0-4.5); HEMATOCRIT 37.4 % (32.4-45.2); HEMOGLOBIN 12.6 GM/dL (10.7-15.3); MCH 29.6 pg (25.7-33.7); MCHC 33.6 g/dl (32.0-36.0); MEAN CELL VOLUME 88.1 fl (80-96); MONO % 7.1 % (3.8-10.2); NEUT % 42.2 % (42.8-82.8); PLATELET COUNT 333 K/MM3 (134-434); RBC 4.25 M/mm3 (3.60-5.2); RDW 14.9 % (11.6-15.6); WHITE BLOOD COUNT 6.3 K/mm3 (4.0-10.0)
--- NOTE | 2018-11-09 20:51 | PDOC ---
Documentation entered by Tana Hill SCRIBE, acting as scribe for Marian Sosa MD. Marian Sosa MD: This documentation has been prepared by the Sergio duarte Xhesika, SCRIBE, under my direction and personally reviewed by me in its entirety. I confirm that the documentation accurately reflects all work, treatment, procedures, and medical decision making performed by me. 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 The patient states she ate fish at the restaurant, got home, her tongue was numb, was hyperventilating, felt like she was going to faint, and her son laid her down on the floor. Patient notes she did not take benadryl for relief of symptoms. Patient notes she is allergic to shrimp but denies any other seafood allergies. The patient denies chest pain, shortness of breath, headache and dizziness. Denies fever, chills, diarrhea and constipation. Denies dysuria, frequency, urgency and hematuria. Allergies:shrimp, penicillins. Past History - Past Medical History Allergies/Adverse Reactions: Allergies Allergy/AdvReac Type Severity Reaction Status Date / Time Penicillins Allergy Unknown Rash Verified 04/28/18 01:59 shrimp Allergy Verified 11/09/18 18:02 Home Medications: Ambulatory Orders Pravastatin Sodium [Pravachol -] 20 mg PO HS #0 tab 09/18/16 metFORMIN HCL [Glucophage -] 500 mg PO DAILY #0 tab 09/18/16 Lisinopril [Zestril] 2.5 mg PO DAILY 07/12/17 Asthma: No Cancer: Yes (ovarian 09/2015) CVA: (brain aneurysm) COPD: No Diabetes: Yes (NIDDM) HTN: Yes - Immunization History Immunization Up to Date: Yes - Suicide/Smoking/Psychosocial Hx Smoking Status: No Smoking History: Never smoked Have you smoked in the past 12 months: No Number of Cigarettes Smoked Daily: 0 Information on smoking cessation initiated: No Hx Alcohol Use: No Drug/Substance Use Hx: No Substance Use Type: None Hx Substance Use Treatment: No Review of Systems - Review of Systems Able to Perform ROS?: Yes Comments:: 11/09/18 18:54 GENERAL/CONSTITUTIONAL: No fever or chills. No weakness.(+) hyperventilating HEAD, EYES, EARS, NOSE AND THROAT: No change in vision. No ear pain or discharge. No sore throat.(+) tongue numbness. CARDIOVASCULAR: No chest pain or shortness of breath. RESPIRATORY: No cough, wheezing, or hemoptysis. GASTROINTESTINAL: No nausea, vomiting, diarrhea or constipation. GENITOURINARY: No dysuria, frequency, or change in urination. MUSCULOSKELETAL: No joint or muscle swelling or pain. No neck or back pain. SKIN: No rash NEUROLOGIC: No headache, vertigo, loss of consciousness, or change in strength/ sensation. ENDOCRINE: No increased thirst. No abnormal weight change. HEMATOLOGIC/LYMPHATIC: No anemia, easy bleeding, or history of blood clots. ALLERGIC/IMMUNOLOGIC: (+) mild allergic reaction. *Physical Exam - Vital Signs Last Vital Signs Temp Pulse Resp BP Pulse Ox 97.9 F 81 18 129/81 100 11/09/18 18:00 11/09/18 18:00 11/09/18 18:00 11/09/18 18:00 11/09/18 18:03 - Physical Exam Comments: 11/09/18 18:55 GENERAL: Awake, alert, and fully oriented. (+) hyperventilating. HEAD: No signs of trauma EYES: PERRLA, EOMI, sclera anicteric, conjunctiva clear ENT: Auricles normal inspection, hearing grossly normal, nares patent, oropharynx clear without exudates. Moist mucosa. (+) slight uvula midline edema NECK: Normal ROM, supple, no lymphadenopathy, JVD, or masses LUNGS: Breath sounds equal, clear to auscultation bilaterally. No wheezes, and no crackles HEART: Regular rate and rhythm, normal S1 and S2, no murmurs, rubs or gallops ABDOMEN: Soft, nontender, normoactive bowel sounds. No guarding, no rebound. No masses EXTREMITIES: Normal range of motion, no edema. No clubbing or cyanosis. No cords, erythema, or tenderness NEUROLOGICAL: Cranial nerves II through XII grossly intact. Normal speech, SKIN: Warm, Dry, normal turgor, no rashes or lesions noted. ED Treatment Course - LABORATORY CBC & Chemistry Diagram: 11/09/18 19:00 11/09/18 19:00 Medical Decision Making - Medical Decision Making 11/09/18 23:16 58-year-old female with a history of seafood allergies a fish today and then started to feel that her throat was closing and her tongue felt numb atient also felt some nausea after eating the fishPatient responded to IV fluids , anti-emetics and Benadryl PP IPatient does have a history of a cerebral aneurysm and does have an appointment this Friday for an MRI of the brain. She periodically hasimaging studies to follow the cerebral aneurysm which is small.Labs reviewed Impression seafood allergy *DC/Admit/Observation/Transfer Diagnosis at time of Disposition: Food allergy, Near syncope - Discharge Dispostion Disposition: HOME Condition at time of disposition: Improved - Referrals - Patient Instructions Printed Discharge Instructions: DI for Food Allergy, DI for Nausea -- Adult Additional Instructions: YOU MUST KEEP YOUR APPOINTMENT ON FRIDAY FOR YOUR MRI OF THE BRAIN RETURN FOR ANY WORSENING SYMPTOMS - Post Discharge Activity
[2018-11-09 21:01] LABS: BILIRUBIN,TOTAL 0.4 mg/dL (0.2-1); BLOOD UREA NITROGEN 17.9 mg/dL (7-18); CALCIUM 9.3 mg/dL (8.5-10.1); CREATININE 0.8 mg/dL (0.55-1.3); POTASSIUM 3.9 mmol/L (3.5-5.1); TOT PROT 7.6 g/dl (6.4-8.2)
--- NOTE | 2018-11-10 13:41 | EKG ---
Test Reason : Blood Pressure : / mmHG Vent. Rate : 077 BPM Atrial Rate : 077 BPM P-R Int : 106 ms QRS Dur : 082 ms QT Int : 400 ms P-R-T Axes : 040 042 047 degrees QTc Int : 452 ms SINUS RHYTHM WITH SHORT SD OTHERWISE NORMAL ECG WHEN COMPARED WITH ECG OF 28-APR-2018 04:05, SD INTERVAL HAS DECREASED Confirmed by Mekhi Goetz MD ([id number]) on 11/10/2018 1:40:51 PM Referred By: Confirmed By:Mekhi Goetz MD
== END 2018-11-09 23:37 | disposition home or self-care (01) ==
LOC: JER 17:47
PROC: 3E033GC Introduction of Other Therapeutic Substance into Peripheral Vein, Percutaneous Approach (ICD-10-PCS; principal; 2018-11-09)
PROC: 3E0337Z Introduction of Electrolytic and Water Balance Substance into Peripheral Vein, Percutaneous Approach (ICD-10-PCS; 2018-11-09)
DX: T78.00XA Anaphylactic reaction due to unspecified food, initial encounter (principal); R55 Syncope and collapse; E11.9 Type 2 diabetes mellitus without complications; I10 Essential (primary) hypertension; Z85.43 Personal history of malignant neoplasm of ovary
CPT/HCPCS: 36415; 80053; 84484; 85025; 93005; 93010; 96361; 96365; 96375; 99284-25; J7030

== ENCOUNTER 2019-01-11 20:46 | Emergency (ER) | payer OTHER ==
[2019-01-11 20:57] VITALS: BMI 27.4
--- NOTE | 2019-01-11 21:19 | PDOC ---
Attending Attestation - Resident Resident Name: Jesse Mueller - ED Attending Attestation I have performed the following: I have examined & evaluated the patient, The case was reviewed & discussed with the resident, I agree w/resident's findings & plan, Exceptions are as noted - HPI HPI: 01/11/19 21:16 this 58 yo female received Epi IM injection at home because she had some lip swelling after eating cod fish and a history of seafood allergies - Physicial Exam PE: 01/11/19 21:19 [id number] has minimal swelling of her lip but she has no respiratory distress head ncat minimal swelling to maxillary lip, uvula is midline ,no edema lungs cta b/l cvs tachycardia abd nontender skin no hives, no lesions neuro axox3 psych anxious 01/11/19 21:24 - Medical Decision Making 01/11/19 21:24 Prior medical history, seafood, allergies, hypertension, NIDDM, ovarian cancer , status post hysterectomy in 2003, occipital aneurysm March 2016, absence seizures, undiagnosed schizophrenia as Per family presents to the ED with anxiety is a mild allergic reaction, status post eating fish 01/11/19 22:55 Pt;s mild symptoms resolved and she will be d/s home with reminder to avoid seafood
[2019-01-11] MEDS ORDERED: SODIUM CHLORIDE 0.9% 500 ML INFUS.BAG IV ONE (21:26)
--- NOTE | 2019-01-11 21:26 | PDOC ---
History of Present Illness - General Chief Complaint: Allergic Reaction Stated Complaint: ALLERGIC REACTION Time Seen by Provider: 01/11/19 20:54 History Source: Patient, Family, Accounting Associate Used Exam Limitations: Language Barrier (Eritrean) - History of Present Illness Initial Comments: 01/11/19 21:22 Lizet Staton is a 58F with PMH shrimp allergy, HTN, NIDDM, ovarian CA s/p CARMEL 2004, occipital aneurysm (2015), absence seizures, chronic C5-C6 cord compression, chronic unruptured cerebral aneurysms, presenting with mild allergic reaction after eating cod. Per patient's family, patient has history of allergy to shrimp and prior ED visit after eating fish. Today 30 mins [employer] was eating cod for dinner and began feeling anxious and had lip swelling with tongue itching. Son administered EpiPen within minutes of reaction, patient felt better but started having nausea , jitters, and uncontrollable shaking in arms and legs. Has history of HTN and NIDDM and takes medications for them, patient and son do not remember names. Otherwise denies chest pain, SOB, urinary sx, GLASER, weakness, dizziness. Reports some epigastric pain, non-radiating, with some nausea without vomiting. History of epilepsy but has not taken medications in a long time. No recent seizures. Past History - Past Medical History Allergies/Adverse Reactions: Allergies Allergy/AdvReac Type Severity Reaction Status Date / Time Penicillins Allergy Unknown Rash Verified 04/28/18 01:59 shrimp Allergy Verified 11/09/18 18:02 Home Medications: Ambulatory Orders Pravastatin Sodium [Pravachol -] 20 mg PO HS #0 tab 09/18/16 metFORMIN HCL [Glucophage -] 500 mg PO DAILY #0 tab 09/18/16 Lisinopril [Zestril] 2.5 mg PO DAILY 07/12/17 Diphenhydramine HCl [Benadryl -] 25 mg PO Q6H PRN #28 capsule MDD 4 tabs Epinephrine [Epipen 2-Otis] 0.3 mg IJ ASDIR #1 kit 11/09/18 Ondansetron [Zofran *Odt*] 8 mg SL TID PRN #21 od.tablet MDD 3 tabs 11/09/18 Prednisone 10 mg PO BID 5 Days #10 tablet 01/11/19 Asthma: No Cancer: Yes (ovarian 09/2015) CVA: (brain aneurysm) COPD: No Diabetes: Yes (NIDDM) HTN: Yes - Immunization History Immunization Up to Date: Yes - Suicide/Smoking/Psychosocial Hx Smoking Status: No Smoking History: Unknown if ever smoked Have you smoked in the past 12 months: No Number of Cigarettes Smoked Daily: 0 Hx Alcohol Use: No Drug/Substance Use Hx: No Substance Use Type: None Hx Substance Use Treatment: No Review of Systems - Review of Systems Constitutional: No: Diaphoresis, Fever, Loss of Appetite, Weakness, Unintentional Wgt. Loss HEENTM: Yes: Mouth Swelling (lip swelling). No: Blurred Vision, Recent change in vision, Tinnitus, Hearing Loss Respiratory: No: Cough, Shortness of Breath, Wheezing Cardiac (ROS): Yes: Palpitations. No: Chest Pain, Edema, Irregular Heart Rate, Lightheadedness, Syncope ABD/GI: Yes: Nausea. No: Constipated, Diarrhea, Vomiting, Abdominal cramping : No: Burning, Dysuria, Discharge, Frequency, Flank Pain, Hematuria, Incontinence Integumentary: Yes: Pruritus (tongue). No: Bruising, Erythema, Rash Neurological: Yes: Tremors. No: Headache, Numbness, Paresthesia, Seizure, Weakness Endocrine: No: Symptoms Reported Hematologic/Lymphatic: No: Symptoms Reported All Other Systems: Reviewed and Negative *Physical Exam - Vital Signs Last Vital Signs Temp Pulse Resp BP Pulse Ox 110 H 20 196/102 H 100 01/11/19 20:55 01/11/19 20:55 01/11/19 20:55 01/11/19 20:55 - Physical Exam General Appearance: Yes: Nourished, Appropriately Dressed, Apparent Distress, Moderate Distress HEENT: positive: EOMI, [place], Normal ENT Inspection, Normal Voice, Symmetrical, Pharynx Normal. negative: Scleral Icterus (R), Scleral Icterus (L), Tonsillar Erythema, Rhinorrhea Neck: positive: Tender, Trachea midline, Normal Thyroid, Supple. negative: Rigid, Decreased range of motion, Lymphadenopathy (R), Lymphadenopathy (L), Rigidity Respiratory/Chest: positive: Lungs Clear, Normal Breath Sounds. negative: Chest Tender, Respiratory Distress, Accessory Muscle Use, Crackles, Rales, Rhonchi, Stridor Cardiovascular: positive: Regular Rhythm, Tachycardia. negative: Edema, Murmur Gastrointestinal/Abdominal: positive: Normal Bowel Sounds, Flat, Soft. negative : Tender, Organomegaly, Pulsatile Mass, Guarding, Rebound Musculoskeletal: positive: Normal Inspection. negative: CVA Tenderness Extremity: positive: Normal Capillary Refill, Normal Inspection, Normal Range of Motion. negative: Tender Integumentary: positive: Normal Color, Dry, Warm Neurologic: positive: Fully Oriented, Alert, Normal Mood/Affect, Normal Response ED Treatment Course - LABORATORY CBC & Chemistry Diagram: 01/11/19 21:28 01/11/19 21:28 Medical Decision Making - Medical Decision Making 01/11/19 21:22 Lizet Staton is a 58F with PMH HTN, NIDDM, ovarian CA s/p CARMEL 2004, occipital aneurysm (2016), absence seizures, chronic C5-C6 cord compression, chronic unruptured cerebral aneurysms, presenting with mild allergic reaction after eating cod. Patient is speaking normally, has non-labored respirations, mild lip swelling and no throat swelling, and low concern for airway compromise 2/2 anaphylaxis. No wheal/flare rash or itchiness noted. Has some jitters and shaking with tachycardia, consistent 2/2 epi administration prior to arrival. Will give 1L NS, 125 Solu-Medrol, and 25mg Benadryl. Placed US-guided 22G IV in R forearm. Will obtain CMP, CBC. Will re-assess for effectiveness of medications, resolution of epi effects, and likely discharge home. 01/11/19 22:59 Repeat BP 110/80. Patient calmly sitting in bed in no acute distress, VS WNL, no swelling. Patient feels better and wants to go home. Has concern about recurrence of symptoms but advised that she is breathing well and can go home on steroids and PRN Benadryl. Discussed with patient and wrote down in d/c instructions. Discharge home with PCP f/u and prednisone for 5 days. *DC/Admit/Observation/Transfer Diagnosis at time of Disposition: Tachycardia Allergic reaction Qualifiers: Encounter type: initial encounter Qualified Code(s): T78.40XA - Allergy, unspecified, initial encounter - Discharge Dispostion Disposition: HOME Condition at time of disposition: Improved - Prescriptions Prescriptions: Prednisone 10 mg PO BID 5 Days #10 tablet - Referrals - Patient Instructions Printed Discharge Instructions: DI for General Allergic Reactions Additional Instructions: Today you were evaluated for an allergic reaction to fish. We gave you some IV fluids, and gave you medicines called SoluMedrol and Benadryl, which will help to reduce swelling and allow you to breathe well. In the future, please do not eat any more seafood. If you would like to learn more about which seafood you are allergic to, please see an employment training specialist doctor. Please remember to have your EpiPen with you at all times in the event this happens again. Your palpitations and shaking is because of the EpiPen and is an expected reaction. We have sent you home with a prescription for prednisone to help with swelling. Please take 1 tablet every 12 hours for the next 5 days. If you continue to experience swelling, please take 25mg of Benadryl every 6 hours as needed for swelling if you need it. Please see your primary doctor in the next 3 days for further care. If you experience difficulty breathing, cough, shortness of breath, chest pain, wheezing, rash, swelling, or any other new or concerning symptoms, please return the emergency room immediately. - Post Discharge Activity
[2019-01-11] MEDS ORDERED: methylPREDNISolone NA SUCC 125 MG/2 ML VIAL IVPB ONE (21:29)
[2019-01-11] MEDS ORDERED: methylPREDNISolone NA SUCC 125 MG/2 ML VIAL ONE (21:32)
[2019-01-11 21:36] LABS: BASO % 1.3 % (0-2.0); EOS % 2.7 % (0-4.5); HEMATOCRIT 36.5 % (32.4-45.2); HEMOGLOBIN 11.9 GM/dL (10.7-15.3); LYMPH % 57.5 % (8-40); MCH 28.8 pg (25.7-33.7); MCHC 32.7 g/dl (32.0-36.0); MEAN PLT VOLUME 8.8 fl (7.5-11.1); MONO % 6.6 % (3.8-10.2); NEUT % 31.9 % (42.8-82.8); PLATELET COUNT 357 K/MM3 (134-434); RBC 4.15 M/mm3 (3.60-5.2); RDW 14.1 % (11.6-15.6); WHITE BLOOD COUNT 9.4 K/mm3 (4.0-10.0)
[2019-01-11 21:53] LABS: ALBUMIN 4.2 g/dl (3.4-5.0); BILIRUBIN,TOTAL 0.4 mg/dL (0.2-1); BLOOD UREA NITROGEN 16.8 mg/dL (7-18); CALCIUM 9.4 mg/dL (8.5-10.1); CREATININE 0.9 mg/dL (0.55-1.3); POTASSIUM 3.3 mmol/L (3.5-5.1); TOT PROT 7.4 g/dl (6.4-8.2)
[2019-01-11 23:03] VITALS: BP 110/67; PULSE 100
== END 2019-01-11 23:12 | disposition home or self-care (01) ==
LOC: JER 20:46
PROC: 3E033GC Introduction of Other Therapeutic Substance into Peripheral Vein, Percutaneous Approach (ICD-10-PCS; principal; 2019-01-11)
PROC: 3E033NZ Introduction of Analgesics, Hypnotics, Sedatives into Peripheral Vein, Percutaneous Approach (ICD-10-PCS; 2019-01-11)
PROC: B54MZZA Ultrasonography of Right Upper Extremity Veins, Guidance (ICD-10-PCS; 2019-01-11)
PROC: B54MZZ3 Ultrasonography of Right Upper Extremity Veins, Intravascular (ICD-10-PCS; 2019-01-11)
DX: T78.1XXA Other adverse food reactions, not elsewhere classified, initial encounter (principal); R22.9 Localized swelling, mass and lump, unspecified; X58.XXXA Exposure to other specified factors, initial encounter; Z91.013 Allergy to seafood; Z88.0 Allergy status to penicillin; I10 Essential (primary) hypertension; E11.9 Type 2 diabetes mellitus without complications; Z79.84 Long term (current) use of oral hypoglycemic drugs; Z85.43 Personal history of malignant neoplasm of ovary; Z90.710 Acquired absence of both cervix and uterus; Z90.79 Acquired absence of other genital organ(s); Z90.722 Acquired absence of ovaries, bilateral; G95.29 Other cord compression; Z86.79 Personal history of other diseases of the circulatory system
CPT/HCPCS: 36415; 80053; 85025; 99283-25